=== PATIENT | male | born 1970 | race Caucasian/White ===

== ENCOUNTER 2020-02-08 06:42 | Outpatient (REF) | payer OTHER, SELFPAY ==
[2020-02-08 11:24] LABS: MANUAL DIFF FLAG NO
[2020-02-08 11:31] LABS: Basophils Percent Auto 0.3 % (0-2); Eosinophils Absolute Auto 0.2 X10*3/uL (0.0-0.4); Eosinophils Percent Auto 2.5 % (0-4); Hematocrit 43.1 % (42-52); Hemoglobin 14.2 g/dl (14.0-18.0); Imm Gran Abs Auto 0.02 X10*3/uL (0.00-0.03); Imm Gran Pct Auto 0.3 % (0.0-0.4); Lymphocytes Absolute Auto 1.7 X10*3/uL (1.2-4.9); Lymphocytes Percent Auto 27.3 % (20-40); Mean Corpuscular HGB Conc 32.9 g/dl (31.0-36.0); Mean Corpuscular Hemoglobin 32.1 pg (27.0-33.0); Mean Corpuscular Volume 97.5 fL (80-98); Mean Platelet Volume 12.8 fL (9.4-12.4); Monocytes Absolute Auto 0.8 X10*3/uL (0.1-1.2); Monocytes Percent Auto 12.2 % (2-11); Neutrophils Absolute Auto 3.7 X10*3/uL (2.0-8.3); Neutrophils Percent Auto 57.4 % (45-73); Platelet Count 205 X10*3/uL (160-400); Red Blood Count 4.42 X10*6/uL (4.60-5.80); Red Cell Distribution Width 12.6 % (11.0-16.0); White Blood Count 6.4 X10*3/uL (4.8-10.8)
[2020-02-08 12:07] LABS: Alanine Aminotransferase 21 U/L (0-40); Albumin Level 4.4 g/dL (3.5-5.0); Alkaline Phosphatase 81 U/L (39-117); Anion Gap 14 (12-20); Aspartate Amino Transferase 22 U/L (5-37); Bilirubin Total 0.8 mg/dL (0.0-1.0); Blood Urea Nitrogen 19 mg/dL (9-16); Calcium 9.1 mg/dL (8.4-10.2); Carbon Dioxide 27 mmol/L (22-29); Chloride 104 mmol/L (96-108); Cholesterol 163 mg/dL; Estimated Glomerular Filt Rate > 60; Glucose Fasting 93 mg/dL (60-99); HDL Cholesterol 46 mg/dL; LDL Cholesterol Calculated 90 mg/dl; Potassium 4.8 mmol/l (3.3-5.1); Sodium 140 mmol/L (135-145); Total Protein 7.1 g/dL (6.5-8.0); Triglycerides 136 mg/dL
[2020-02-08 12:31] LABS: Prostate Specific Antigen 0.13 ng/mL (<0.05-4.0)
== END 2020-02-08 06:43 | disposition home or self-care (01) ==
LOC: HO.HMGCLDS 06:42
PROVIDERS: PCP Internal Medicine; Visit Provider Internal Medicine
DX: Z20.828 Contact with and (suspected) exposure to other viral communicable diseases (principal); E78.00 Pure hypercholesterolemia, unspecified; E66.01 Morbid (severe) obesity due to excess calories
CPT/HCPCS: 36415; 80053; 80061; 84153; 85025; C9803; U0003

== ENCOUNTER 2020-06-16 11:48 | Emergency (ER) | payer OTHER, SELFPAY ==
--- NOTE | ~2020-06-16 | CT_ITS ---
EXAMINATION: CT GI BLEED/ABDOMEN AND PELVIS WITHOUT AND WITH CONTRAST. CLINICAL INFORMATION: Abdominal pain with bloody stools. COMPARISON: None TECHNIQUE: 5 mm thin axial and reformatted 2 mm thin sagittal and coronal images of abdomen and pelvis were obtained with and without intravenous defined metal Omnipaque 350. DLP 1663. FINDINGS: The lung bases are clear. The heart size is normal. The liver is normal size, shape and density. No focal lesion or intrahepatic ductal dilatation seen. There are no radiopaque gallstones or wall thickening. Visualized spleen, pancreas and bilateral adrenal glands are unremarkable. There is a 3 mm nonobstructive radiopaque calculi lower pole calyx left kidney. There are symmetrical bilateral enhancing nephrograms without any cyst or enhancing lesion. There is no hydronephrosis. The abdominal aorta is of normal caliber. No retroperitoneal lymph nodes or mass seen. There is diffuse colonic diverticulosis with diffuse mural thickening in the transverse segment of sigmoid colon with moderate pericolic fat stranding consistent with acute diverticulitis. There is hyperdense material seen within the sigmoid colon and diverticuli likely residual oral contrast. The small bowel loops are normal caliber. There is no extravasation of IV contrast to suspect a site of bleed. There is no free air free fluid. Abdominal wall appears unremarkable. Imaging through the pelvis reveals punctate calcification in normal size prostate gland. No abnormal inguinal or pelvic lymph nodes. There is no free fluid. CT/CT gi bleed abd pel wo/w con IMPRESSION: Diffuse colonic diverticulosis with acute sigmoid diverticulitis. No perforation or obstruction seen. There is no IV contrast extravasation seen in the colon suspected in the site of bleed. There is residual oral contrast within the diverticuli and sigmoid colon. Nonobstructive small 3 mm radiopaque calculi lower pole left kidney
[2020-06-16 12:22] VITALS: BP 153/78; PULSE 79; RESP 16; TEMP 36.7; O2SAT 98; BMI 36.7
--- NOTE | 2020-06-16 13:31 | ED.ABDPAIN ---
HPI - Abdominal Pain General Chief Complaint: Abdominal Pain Stated Complaint: ABD PAIN Time Seen by Provider: 06/16/20 13:19 Source: patient Mode of arrival: ambulatory Limitations: no limitations History of Present Illness HPI narrative: 49 y/o male with history of asthma and hyperlipidemia presenting to the ED from home with severe lower abdominal pain and cramping that started yesterday when he was at work. He states is comes and goes but has intensifying. He also reports some nausea and an intermittnet sharp pain under his rib cage on the right. He is afraid to eat or drink because of the pain. This morning he had 3 episodes of right red blood specked in his stool after he strained to have a bowel movement. No melena, no vomiting but admits to chills. No dizziness, lightheadedness, SOB or chest pain. He reports he started a diet in March of mostly vegetables and protein and he has lost about 35 pounds. MD elicited complaint: abdominal pain Pertinent past history: none Onset (ago): day(s) (1) Pain Consistency: intermittent Location: periumbilical, RUQ and RLQ Severity: severe Quality: cramping Radiation: none Migration to: no migration Exacerbating factors: nothing Relieving factors: rest Associated symptoms: nausea, chills and hematochezia Related Data Previous Rx's Medication Instructions Recorded hydrocodone-acetaminophen 1 tab PO Q4-6H PRN #10 tab 06/16/20 levofloxacin 500 mg PO Q24H 10 Days #10 tab 06/16/20 metronidazole [Flagyl] 500 mg PO BID #20 tab 06/16/20 ondansetron HCl [Zofran] 4 mg PO Q8H PRN #10 tab 06/16/20 Allergies Allergy/AdvReac Type Severity Reaction Status Date / Time No Known Allergies Allergy Verified 06/16/20 13:29 Review of Systems Review of Systems Constitutional: No Fever, + Chills ENT/Mouth: No sore throat, No Rhinorrhea, No Swallowing Difficulty Eyes: No Eye Pain, No Swelling, No Redness Cardiovascular: No Chest Pain, No SOB, No Orthopnea, No Edema Respiratory: No Cough, No Sputum, No Wheezing, No dyspnea Gastrointestinal: + Nausea, No Vomiting, No Diarrhea, + abdominal Pain, + Hematochezia, No Melena Genitourinary: No Dysuria, No Urinary Frequency, No Hematuria Musculoskeletal: No joint pain, No Myalgias Skin: No Skin Lesions, No rash Neuro: No Weakness, No Numbness, No Dizziness, No Headache Psych: No Anxiety/Panic, No Depression Heme/Lymph: No Bruising, No Lymphadenopathy Endocrine: No Polyuria, No Polydipsia Physical Exam Vital Signs: Vital Signs: Last Vital Signs Temp 98.0 F 06/16/20 12:22 Pulse 73 06/16/20 14:10 Resp 18 06/16/20 14:10 BP 123/61 06/16/20 14:10 Pulse Ox 96 06/16/20 14:10 Body Mass Index 36.7 Appearance: Alert. Oriented X3. No acute distress. Eyes: Pupils equal, round and reactive to light. ENT: Pharynx normal. Neck: Normal inspection. Neck supple. CVS: Normal heart rate and rhythm. Pulses normal. Respiratory: No respiratory distress. Breath sounds normal. Abdomen: Soft with periumbilical tenderness, RLQ tenderness with rebound. +BS in all 4 quadrants. Skin: Skin warm and dry. Normal skin color. Normal skin turgor. No rashes. Extremities: No lower extremity edema. Neuro: Oriented X 3. No motor deficit. No sensory deficit. Course Course Course Narrative: 49 y/o male presenting with lower abdominal pain, RUQ pain and bloody stools. Concern for possible diverticulitis, volvulus, appendicitis, cholecystitis. Will get labs and CT scan for further assessment. IVF and morphine ordered for now. Reevaluation(s) Reevaluation #1: Labs are unremarkable aside from WBC 12.2. Pain significantly improved after morphine. No N/V/D. Reevaluation #2: CT scan showing acute diverticulitis of sigmoid colon, no active GI bleed. H/H is at his baseline. No BM's here. Will treat with Flagyl and Levaquin. Patient counseled on diagnosis and management as well as signs/symptoms to prompt immediate return for re-evaluation. Stable for discharge. MDM - Abdominal Pain Lab Data Result diagrams: 06/16/20 13:32 06/16/20 13:32 Labs: Lab Results 06/16/20 06/16/20 06/16/20 Range/Units 13:32 13:32 13:32 WBC 12.2 H (4.8-10.8) X10*3/uL RBC 4.62 (4.60-5.80) X10*6/uL Hgb 14.7 (14.0-18.0) g/dl Hct 43.9 (42-52) % MCV 95.0 (80-98) fL MCH 31.8 (27.0-33.0) pg MCHC 33.5 (31.0-36.0) g/dl RDW 12.1 (11.0-16.0) % Plt Count 199 (160-400) X10*3/uL MPV 11.6 (9.4-12.4) fL Immature Gran % (Auto) 0.4 (0.0-0.4) % Neut % (Auto) 80.9 H (45-73) % Lymph % (Auto) 7.1 L (20-40) % [place] % (Auto) 10.0 (2-11) % Eos % (Auto) 1.4 (0-4) % Baso % (Auto) 0.2 (0-2) % Lymph # (Auto) 0.9 L (1.2-4.9) X10*3/uL [place] # (Auto) 1.2 (0.1-1.2) X10*3/uL Eos # (Auto) 0.2 (0.0-0.4) X10*3/uL Baso # (Auto) 0.0 (0.0-0.2) X10*3/uL Abs Immat Gran (auto) 0.05 H (0.00-0.03) X10*3/uL Absolute Neuts (auto) 9.9 H (2.0-8.3) X10*3/uL Absolute Nucleated RBC 0.000 (0.0-0.012) X10*3/uL Nucleated RBC % (auto) 0.0 (0.0-0.2) /100WBC Hold Blue Top SEE NOTE Sodium 135 (135-145) mmol/L Potassium 4.1 (3.3-5.1) mmol/L Chloride 101 (96-108) mmol/L Carbon Dioxide 26 (22-29) mmol/L Anion Gap 12 (12-20) BUN 14 (9-16) mg/dL Creatinine 0.91 (0.5-1.4) mg/dL Estim Creat Clear Calc 121.6 Estimated GFR > 60 Random Glucose 92 (60-115) mg/dL Calcium 9.1 (8.4-10.2) mg/dL Magnesium 2.0 (1.6-2.6) mg/dL Total Bilirubin 1.2 H (0.0-1.0) mg/dL Direct Bilirubin 0.5 (0.0-0.5) mg/dL AST 16 (5-37) U/L ALT 10 (0-40) U/L Alkaline Phosphatase 72 (39-117) U/L Total Protein 7.2 (6.5-8.0) g/dL Albumin 4.4 (3.5-5.0) g/dL Lipase (8-78) U/L Urine Color Urine Appearance Urine pH (5.0-8.0) Ur Specific [place] (1.005-1.025) Urine Protein (NEG-TRACE) MG/DL Urine Glucose (UA) (NEG) MG/DL Urine Ketones (NEG) MG/DL Urine Blood (NEG) Urine Nitrite (NEG) Ur Leukocyte Esterase (NEG) Urine RBC (0) /HPF Urine WBC (0-4) /HPF Ur Squamous Epith Cells /LPF Urine Bacteria /LPF 06/16/20 06/16/20 Range/Units 13:32 15:21 WBC (4.8-10.8) X10*3/uL RBC (4.60-5.80) X10*6/uL Hgb (14.0-18.0) g/dl Hct (42-52) % MCV (80-98) fL MCH (27.0-33.0) pg MCHC (31.0-36.0) g/dl RDW (11.0-16.0) % Plt Count (160-400) X10*3/uL MPV (9.4-12.4) fL Immature Gran % (Auto) (0.0-0.4) % Neut % (Auto) (45-73) % Lymph % (Auto) (20-40) % [place] % (Auto) (2-11) % Eos % (Auto) (0-4) % Baso % (Auto) (0-2) % Lymph # (Auto) (1.2-4.9) X10*3/uL [place] # (Auto) (0.1-1.2) X10*3/uL Eos # (Auto) (0.0-0.4) X10*3/uL Baso # (Auto) (0.0-0.2) X10*3/uL Abs Immat Gran (auto) (0.00-0.03) X10*3/uL Absolute Neuts (auto) (2.0-8.3) X10*3/uL Absolute Nucleated RBC (0.0-0.012) X10*3/uL Nucleated RBC % (auto) (0.0-0.2) /100WBC Hold Blue Top Sodium (135-145) mmol/L Potassium (3.3-5.1) mmol/L Chloride (96-108) mmol/L Carbon Dioxide (22-29) mmol/L Anion Gap (12-20) BUN (9-16) mg/dL Creatinine (0.5-1.4) mg/dL Estim Creat Clear Calc Estimated GFR Random Glucose (60-115) mg/dL Calcium (8.4-10.2) mg/dL Magnesium (1.6-2.6) mg/dL Total Bilirubin (0.0-1.0) mg/dL Direct Bilirubin (0.0-0.5) mg/dL AST (5-37) U/L ALT (0-40) U/L Alkaline Phosphatase (39-117) U/L Total Protein (6.5-8.0) g/dL Albumin (3.5-5.0) g/dL Lipase 12 (8-78) U/L Urine Color YELLOW Urine Appearance CLEAR Urine pH 5.5 (5.0-8.0) Ur Specific [place] 1.010 (1.005-1.025) Urine Protein NEG (NEG-TRACE) MG/DL Urine Glucose (UA) NEG (NEG) MG/DL Urine Ketones 40 (NEG) MG/DL Urine Blood TRACE (NEG) Urine Nitrite NEG (NEG) Ur Leukocyte Esterase NEG (NEG) Urine RBC 0-2 (0) /HPF Urine WBC 0 (0-4) /HPF Ur Squamous Epith Cells TRACE /LPF Urine Bacteria NONE /LPF Critical Care Time Critical Care Time Critical Care Time: No Discharge Plan Discharge Clinical Impression: Diverticulitis Patient Disposition: Home, Self-Care Instructions: Diverticulitis (ED) Additional Instructions: Your CT scan showed acute diverticulitis of your sigmoid colon. Take the antibiotics as prescribed to help treat this. Start taking them tomorrow morning. Stick to a bland diet for the next 1 week. Recommend clear liquids for the next 24 hours. Avoid seeds. Take the prescribed pain medication as needed. Do not drive after taking this medication. Follow up with your doctor next week. Prescriptions: New ondansetron HCl [Zofran] 4 mg tablet 4 mg PO Q8H PRN (Reason: nausea and vomiting) Qty: 10 RF: 0 metronidazole [Flagyl] 500 mg tablet 500 mg PO BID Qty: 20 RF: 0 levofloxacin 500 mg tablet 500 mg PO Q24H 10 Days Qty: 10 RF: 0 hydrocodone-acetaminophen 5-325 mg tablet 1 tab PO Q4-6H PRN (Reason: pain) Qty: 10 RF: 0 PMFSH Past Medical History Attestation statement: The following information was validated with the patient. Medical History (Updated 06/16/20 @ 16:09 by LIZZ Hester) Asthma Hyperlipidemia Social History Social History Alcohol intake: never Smoking Status: Never smoker Use of substances other than those prescribed or required for medical reasons: No Advance Directives: Yes Advance Directives Information Provided: No Advance Directives on File: No
[2020-06-16 13:39] VITALS: RESP 17
[2020-06-16] MEDS: Morphine Sulfate 4 MG/ML CARTRIDGE IVPUSH (13:39)
[2020-06-16] MEDS: 0.9 % Sodium Chloride 1,000 ML 999 ML IVCONT (13:39)
--- NOTE | 2020-06-16 13:43 | PC.NURSE ---
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 Patient reporting abdominal pain. Denies N/V/D/C. Iv established and labs drawn. Hung NS 1L and medicated with morphine. Patient tolerated well. Updated on plan of care for CT scan.
[2020-06-16 13:48] LABS: MANUAL DIFF FLAG NO
[2020-06-16 13:50] LABS: Basophils Percent Auto 0.2 % (0-2); Eosinophils Absolute Auto 0.2 X10*3/uL (0.0-0.4); Eosinophils Percent Auto 1.4 % (0-4); Hematocrit 43.9 % (42-52); Hemoglobin 14.7 g/dl (14.0-18.0); Imm Gran Abs Auto 0.05 X10*3/uL (0.00-0.03); Imm Gran Pct Auto 0.4 % (0.0-0.4); Lymphocytes Absolute Auto 0.9 X10*3/uL (1.2-4.9); Lymphocytes Percent Auto 7.1 % (20-40); Mean Corpuscular HGB Conc 33.5 g/dl (31.0-36.0); Mean Corpuscular Hemoglobin 31.8 pg (27.0-33.0); Mean Platelet Volume 11.6 fL (9.4-12.4); Monocytes Absolute Auto 1.2 X10*3/uL (0.1-1.2); Neutrophils Absolute Auto 9.9 X10*3/uL (2.0-8.3); Neutrophils Percent Auto 80.9 % (45-73); Platelet Count 199 X10*3/uL (160-400); Red Blood Count 4.62 X10*6/uL (4.60-5.80); Red Cell Distribution Width 12.1 % (11.0-16.0); White Blood Count 12.2 X10*3/uL (4.8-10.8)
[2020-06-16 14:09] LABS: Alanine Aminotransferase 10 U/L (0-40); Albumin Level 4.4 g/dL (3.5-5.0); Alkaline Phosphatase 72 U/L (39-117); Anion Gap 12 (12-20); Aspartate Amino Transferase 16 U/L (5-37); Bilirubin Direct 0.5 mg/dL (0.0-0.5); Bilirubin Total 1.2 mg/dL (0.0-1.0); Blood Urea Nitrogen 14 mg/dL (9-16); Calcium 9.1 mg/dL (8.4-10.2); Carbon Dioxide 26 mmol/L (22-29); Chloride 101 mmol/L (96-108); Creatinine Clr Calc Pharmacy 121.6; Estimated Glomerular Filt Rate > 60; Glucose Random 92 mg/dL (60-115); Potassium 4.1 mmol/L (3.3-5.1); Sodium 135 mmol/L (135-145); Total Protein 7.2 g/dL (6.5-8.0)
[2020-06-16 14:10] VITALS: BP 123/61; PULSE 73; RESP 18; O2SAT 96
[2020-06-16 14:10] LABS: Lipase 12 U/L (8-78)
--- NOTE | 2020-06-16 14:12 | PC.NURSE ---
pt reports feeling better after the morphine pain at 3/10. pt states having lower abd pain that radiated to his right rib area, denies n/v but having couple of stools that was blood tinged, denies blood thinners and aspirin.
[2020-06-16 15:35] LABS: Glucose Urine UA NEG (NEG); Leukocyte Esterase Urine NEG (NEG); Nitrite Urine NEG (NEG); PH 5.5 (5.0-8.0); Urine Blood TRACE (NEG); Urine Ketones 40 MG/DL (NEG); Urine Protein NEG (NEG-TRACE)
[2020-06-16 15:41] LABS: Appearance Urine CLEAR; Color Urine YELLOW
[2020-06-16 16:04] LABS: RBC Urine 0-2 /HPF (0); Squamous Epithelial Cell Urine TRACE /LPF; WBC Urine 0 /HPF (0-4)
[2020-06-16] MEDS: Ketorolac Tromethamine 30 MG/ML VIAL IVPUSH (16:47)
[2020-06-16] MEDS: levoFLOXacin 500 MG TABLET PO (16:48)
[2020-06-16] MEDS: metroNIDAZOLE 500 MG TABLET PO (16:49)
[2020-06-16 16:51] VITALS: BP 152/82; PULSE 62; RESP 18; O2SAT 96
== END 2020-06-16 17:02 | disposition home or self-care (01) ==
PROVIDERS: Physician Assistant; Emergency Provider Emergency Medicine Emergency Medical Services; PCP Internal Medicine
DX: K57.32 Diverticulitis of large intestine without perforation or abscess without bleeding (principal); N20.0 Calculus of kidney; J45.909 Unspecified asthma, uncomplicated; E78.5 Hyperlipidemia, unspecified
CPT/HCPCS: 36415; 74178; 80048; 80076; 81001; 83690; 83735; 85025; 96361; 96374; 96375; 99284; J1885; J2270; Q9967

== ENCOUNTER 2021-01-04 12:36 | Outpatient (REF) | payer OTHER, SELFPAY ==
--- NOTE | 2021-01-11 09:29 | MHC.AU.AEV ---
Adult Audiological Evaluation Date of Visit: 01/04/21 Reason for Appointment: Patient suspects he may have mild hearing difficulty. 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 He currently wears in-ear monitors that help reduce noise while playing on stage; however, he did not have access to those years ago. He does not have excessive noise exposure in his primary occupation. Ear History: Ear Deformity: None Reported Recent Ear Drainage: None Reported Recent Ear Pain: None Reported Family History of Hearing Loss?: No Recent Ear Infections: None Reported Ear Infections in Childhood: None Reported History of Ear Wax Buildup: None Reported Previous Ear Surgery: None Reported Bothersome Tinnitus/Ringing/Noises in Ears: None Reported Ear used on the phone: Left Ear Blocked/Full Sensation in Ear(s): None Reported History of occupational noise exposure?: No History: No Medical History: Medical History: Asthma, Rotator Cuff Surgery Otoscopy: Right Ear: Unremarkable Left Ear: Unremarkable Tympanometry: Tympanometry performed due to: To assess integrity of the middle ear system Right Ear: Normal Middle Ear System (Type A) Left Ear: Normal Middle Ear System (Type A) Hearing Evaluation: Transducer(s) Used: Insert Earphones Method: Conventional Audiometry Stimuli Used: Pure Tones Right Ear: Description of Hearing: Overall normal hearing Left Ear: Description of Hearing: Overall normal hearing Speech Recognition Threshold (SRT): Method Used: Recorded Lists Stimuli Used: Spondee Words Right Ear: 10 dBHL Left Ear: 10 dBHL Word Discrimination: Method: Recorded Lists Word Lists Used:: W-22 Right Ear: 100% at 50 dBHL Left Ear: 100% at 50 dBHL Most Comfortable Level (MCL): Right Ear: 50 dBHL Left Ear: 50 dBHL Interpretation of Results: Patient's hearing is overall within normal range. There is a slight notch to borderline-normal around 4000 Hz. Notches in this region are often seen in individuals with history of noise exposure. Continued use of hearing protection while in loud settings is important to preventing noise-induced hearing loss. Recommendations: Audiological re-evaluation if changes are noted. Diagnosis: Primary Diagnosis: H93.293 Abnormal Auditory Perception Signature: Provider: Liliana Davila, MARIBELL-A
== END 2021-01-04 12:37 | disposition home or self-care (01) ==
LOC: HO.SH 12:36
PROVIDERS: Visit Provider Internal Medicine
DX: H91.90 Unspecified hearing loss, unspecified ear (principal)
CPT/HCPCS: 92557; 92567

== ENCOUNTER 2021-06-07 07:03 | Outpatient (REF) | payer OTHER, SELFPAY ==
[2021-06-07 11:38] LABS: MANUAL DIFF FLAG NO
[2021-06-07 11:48] LABS: Basophils Percent Auto 0.6 % (0-2); Eosinophils Absolute Auto 0.1 X10*3/uL (0.0-0.4); Eosinophils Percent Auto 2.3 % (0-4); Hematocrit 42.5 % (42.0-52.0); Hemoglobin 14.1 g/dl (14.0-18.0); Imm Gran Abs Auto 0.02 X10*3/uL (0.00-0.03); Imm Gran Pct Auto 0.4 % (0.0-0.4); Lymphocytes Absolute Auto 1.4 X10*3/uL (1.2-4.9); Lymphocytes Percent Auto 29.1 % (20-40); Mean Corpuscular HGB Conc 33.2 g/dl (31.0-36.0); Mean Corpuscular Volume 96.6 fL (80.0-98.0); Mean Platelet Volume 12.3 fL (9.4-12.4); Monocytes Absolute Auto 0.7 X10*3/uL (0.1-1.2); Monocytes Percent Auto 13.4 % (2-11); Neutrophils Absolute Auto 2.6 x10*3/uL (2.0-8.3); Neutrophils Percent Auto 54.2 % (45-73); Platelet Count 203 X10*3/uL (160-400); Red Cell Distribution Width 12.1 % (11.0-16.0); White Blood Count 4.9 X10*3/uL (4.8-10.8)
[2021-06-07 12:15] LABS: Alanine Aminotransferase 18 U/L (0-40); Albumin Level 4.1 g/dL (3.5-5.0); Alkaline Phosphatase 76 U/L (39-117); Anion Gap 11 (12-20); Aspartate Amino Transferase 19 U/L (5-37); Bilirubin Total 0.8 mg/dL (0.0-1.0); Blood Urea Nitrogen 19 mg/dL (9-16); Calcium 9.2 mg/dL (8.4-10.2); Carbon Dioxide 23 mmol/L (22-29); Chloride 107 mmol/L (96-108); Cholesterol 196 mg/dL; Estimated Glomerular Filt Rate > 60; Glucose Fasting 102 mg/dL (60-99); HDL Cholesterol 40 mg/dL; LDL Cholesterol Calculated 132 mg/dl; Potassium 4.3 mmol/L (3.3-5.1); Sodium 137 mmol/L (135-145); Triglycerides 124 mg/dL
[2021-06-07 12:27] LABS: Thyroid Stimulating Hormone 2.34 uIU/mL (0.32-4.0); Vitamin D 25-OH Total 22.5 ng/mL (>30)
[2021-06-07 13:47] LABS: Appearance Urine CLEAR; Color Urine YELLOW; Glucose Urine UA NEG (NEG); Leukocyte Esterase Urine NEG (NEG); Nitrite Urine NEG (NEG); Urine Blood NEG (NEG); Urine Ketones NEG (NEG); Urine Protein NEG (NEG-TRACE)
== END 2021-06-07 07:04 | disposition home or self-care (01) ==
LOC: HO.HMGCLDS 07:03
PROVIDERS: Visit Provider Internal Medicine
DX: Z00.00 Encounter for general adult medical examination without abnormal findings (principal); Z12.5 Encounter for screening for malignant neoplasm of prostate; J45.30 Mild persistent asthma, uncomplicated; E66.01 Morbid (severe) obesity due to excess calories; E78.00 Pure hypercholesterolemia, unspecified
CPT/HCPCS: 36415; 80053; 80061; 81003; 82306; 84153; 84443; 85025

== ENCOUNTER 2022-08-08 06:47 | Outpatient (REF) | payer OTHER, SELFPAY ==
[2022-08-08 11:23] LABS: MANUAL DIFF FLAG NO
[2022-08-08 11:31] LABS: Appearance Urine Cloudy; Color Urine Yellow; Glucose Urine UA Negative (Negative); Leukocyte Esterase Urine Negative (Negative); Nitrite Urine Negative (Negative); PH 5.5 (5.0-9.0); Urine Blood Negative (Negative); Urine Ketones Negative (Negative); Urine Protein Negative (Neg-Trace)
[2022-08-08 11:38] LABS: Bacteria Urine None Seen (None Seen); Basophils Percent Auto 0.6 % (0-2); Eosinophils Absolute Auto 0.2 X10*3/uL (0.0-0.4); Hematocrit 42.2 % (42.0-52.0); Hemoglobin 14.1 g/dl (14.0-18.0); Hyaline Casts Urine 0-2 /LPF (0-2); Imm Gran Abs Auto 0.01 X10*3/uL (0.00-0.03); Imm Gran Pct Auto 0.2 % (0.0-0.4); Lymphocytes Absolute Auto 1.4 X10*3/uL (1.2-4.9); Lymphocytes Percent Auto 28.2 % (20-40); Mean Corpuscular HGB Conc 33.4 g/dl (31.0-36.0); Mean Corpuscular Hemoglobin 31.3 pg (27.0-33.0); Mean Corpuscular Volume 93.8 fL (80.0-98.0); Monocytes Absolute Auto 0.7 X10*3/uL (0.1-1.2); Monocytes Percent Auto 13.5 % (2-11); Neutrophils Absolute Auto 2.7 x10*3/uL (2.0-8.3); Neutrophils Percent Auto 54.5 % (45-73); Platelet Count 201 X10*3/uL (160-400); RBC Urine 0-2 /HPF (0-2); Red Cell Distribution Width 12.6 % (11.0-16.0); Squamous Epithelial Cell Urine 0-2 /HPF (0-2); WBC Urine 0-5 /HPF (0-5)
[2022-08-08 12:13] LABS: Alanine Aminotransferase 26 U/L (0-40); Albumin Level 4.1 g/dL (3.5-5.0); Alkaline Phosphatase 80 U/L (39-117); Anion Gap 10 (12-20); Aspartate Amino Transferase 25 U/L (5-37); Blood Urea Nitrogen 17 mg/dL (9-16); Carbon Dioxide 23 mmol/L (22-29); Chloride 111 mmol/L (96-108); Cholesterol 215 mg/dL; Estimated Glomerular Filt Rate > 60; Glucose Fasting 103 mg/dL (60-99); HDL Cholesterol 41 mg/dL; LDL Cholesterol Calculated 139 mg/dl; Potassium 4.3 mmol/L (3.3-5.1); Sodium 140 mmol/L (135-145); Total Protein 6.8 g/dL (6.5-8.0); Triglycerides 178 mg/dL
[2022-08-08 12:21] LABS: Estimated Average Glucose 108 mg/dL; Hemoglobin A1c % 5.4 %
[2022-08-08 12:37] LABS: Thyroid Stimulating Hormone 2.61 uIU/mL (0.32-4.0); Vitamin D 25-OH Total 30.9 ng/mL (>30)
[2022-08-09 10:33] LABS: Free Prostate Spec Ag 0.1 ng/mL; Percent Free Prostate Spec Ag 100 % (calc) (>25); Prostate Specific Ag Total 0.1 ng/mL (< OR = 4.0)
== END 2022-08-08 06:48 | disposition home or self-care (01) ==
LOC: HO.HMGCLDS 06:47
PROVIDERS: PCP Internal Medicine; Visit Provider Internal Medicine
DX: Z00.00 Encounter for general adult medical examination without abnormal findings (principal); Z12.5 Encounter for screening for malignant neoplasm of prostate; J45.30 Mild persistent asthma, uncomplicated; E66.01 Morbid (severe) obesity due to excess calories; E78.00 Pure hypercholesterolemia, unspecified; E55.9 Vitamin D deficiency, unspecified; R73.01 Impaired fasting glucose
CPT/HCPCS: 36415; 80053; 80061; 81001; 82306; 83036; 84154; 84443; 85025

== ENCOUNTER 2024-02-16 06:48 | Outpatient (REF) | payer OTHER, SELFPAY ==
[2024-02-16 09:59] LABS: MANUAL DIFF FLAG NO
[2024-02-16 10:20] LABS: Basophils Percent Auto 0.6 % (0-2); Eosinophils Absolute Auto 0.2 X10*3/uL (0.0-0.4); Eosinophils Percent Auto 3.6 % (0-4); Hematocrit 40.5 % (42.0-52.0); Hemoglobin 13.7 g/dl (14.0-18.0); Imm Gran Abs Auto 0.03 X10*3/uL (0.00-0.03); Imm Gran Pct Auto 0.6 % (0.0-0.4); Lymphocytes Absolute Auto 1.3 X10*3/uL (1.2-4.9); Lymphocytes Percent Auto 25.5 % (20-40); Mean Corpuscular HGB Conc 33.8 g/dl (31.0-36.0); Mean Corpuscular Hemoglobin 32.1 pg (27.0-33.0); Mean Corpuscular Volume 94.8 fL (80.0-98.0); Mean Platelet Volume 11.6 fL (9.4-12.4); Monocytes Absolute Auto 0.6 X10*3/uL (0.1-1.2); Monocytes Percent Auto 12.5 % (2-11); Neutrophils Absolute Auto 2.9 x10*3/uL (2.0-8.3); Neutrophils Percent Auto 57.2 % (45-73); Platelet Count 250 X10*3/uL (160-400); Red Blood Count 4.27 X10*6/uL (4.60-5.80); Red Cell Distribution Width 12.8 % (11.0-16.0); White Blood Count 5.1 X10*3/uL (4.8-10.8)
[2024-02-16 10:29] LABS: Estimated Average Glucose 114 mg/dL; Hemoglobin A1C 135.0748 umol/L; Hemoglobin A1c % 5.6 % (<6.0); Total Hemoglobin (HGBA1C) 3601.8981 umol/L
[2024-02-16 10:45] LABS: Alanine Aminotransferase 27 U/L (0-40); Albumin Level 4.1 g/dL (3.5-5.0); Alkaline Phosphatase 78 U/L (39-117); Anion Gap 11 (12-20); Aspartate Amino Transferase 28 U/L (5-37); Bilirubin Total 0.4 mg/dL (0.0-1.0); Blood Urea Nitrogen 18 mg/dL (9-16); Calcium 9.4 mg/dL (8.4-10.2); Carbon Dioxide 23 mmol/L (22-29); Chloride 109 mmol/L (96-108); Cholesterol 156 mg/dL (<200); Estimated Glomerular Filt Rate > 60; Glucose Fasting 102 mg/dL (60-99); HDL Cholesterol 42 mg/dL (>40); LDL Cholesterol Calculated 94 mg/dL (<100); PSA,Total (Free>4and<10) 0.66 ng/mL (0.00-4.00); Potassium 4.4 mmol/L (3.3-5.1); Sodium 139 mmol/L (135-145); Thyroid Stimulating Hormone 1.02 uIU/mL (0.32-4.0); Total Protein 6.9 g/dL (6.5-8.0); Triglycerides 100 mg/dL (<150); Vitamin D 25-OH Total 38.7 ng/mL (>30)
== END 2024-02-16 06:49 | disposition home or self-care (01) ==
LOC: HO.HMGCLDS 06:48
PROVIDERS: PCP Internal Medicine; Visit Provider Internal Medicine
DX: Z00.00 Encounter for general adult medical examination without abnormal findings (principal); E78.00 Pure hypercholesterolemia, unspecified; J45.30 Mild persistent asthma, uncomplicated; E66.01 Morbid (severe) obesity due to excess calories; Z12.5 Encounter for screening for malignant neoplasm of prostate; Z13.1 Encounter for screening for diabetes mellitus
CPT/HCPCS: 36415; 80053; 80061; 82306; 83036; 84153; 84443; 85025

== ENCOUNTER 2024-04-19 11:23 | Outpatient (REF) | payer OTHER, SELFPAY ==
--- NOTE | ~2024-04-19 | XR_ITS ---
EXAMINATION: XR CHEST 2 VIEWS HISTORY: R05.9 - Cough, unspecified COMPARISON: Comparison is made with the prior examination dated 09/08/2019. FINDINGS: PA and lateral views of the chest are submitted. There are low lung volumes. There are patchy opacities in both midlung zones on the left greater than right, which could represent pneumonia. Evaluation is limited by low lung volumes. There is no pleural effusion, pneumothorax, or pulmonary vascular congestion. The heart is normal in size. The bones are intact. XR/XR chest 2V IMPRESSION: Low lung volumes. Patchy opacities in both midlung zones which could represent pneumonia. Follow-up is recommended. Electronically signed by: Jl Mercado MD 04/19/2024 11:59 AM [facility]
[2024-04-19 12:51] LABS: Influenza A PCR NEGATIVE (Negative); Influenza B PCR NEGATIVE (Negative); Resp Syncy Virus RNA Qual PCR NEGATIVE (Negative); SARS COV2 PCR INHOUSE NEGATIVE (Negative)
== END 2024-04-19 11:24 | disposition home or self-care (01) ==
LOC: HO.LAB 11:23
PROVIDERS: PCP Internal Medicine; Visit Provider Physician Assistant Medical
DX: R05.1 Acute cough (principal); R09.89 Other specified symptoms and signs involving the circulatory and respiratory systems
CPT/HCPCS: 0241U; 71046

== ENCOUNTER → 2024-04-19 11:31 | Outpatient (BNV) | payer OTHER, SELFPAY | PROVIDERS: PCP Internal Medicine; Visit Provider Radiology Diagnostic Radiology | DX: R91.8 Other nonspecific abnormal finding of lung field (principal) | CPT/HCPCS: 71046 ==

== ENCOUNTER 2024-04-24 09:32 | Inpatient (IN) | payer OTHER, SELFPAY ==
[2024-04-24] VITALS (9 sets, daily range): BP systolic 136–160; BP diastolic 83–88; PULSE 77–126; RESP 12–23; TEMP 36.6–37; O2SAT 89–96; BMI 44.6
--- NOTE | ~2024-04-24 | CT_ITS ---
CLINICAL HISTORY: persistent cough, fevers CT chest without contrast Comparison: CR/SR - XR CHEST 2V - 04/19/24 11:51 EST CR/SR - RIBS RIGHT PA CHEST [id number] - 09/08/19 08:52 EDT Findings: No consolidation, edema, pleural effusion or pneumothorax. Couple 3 mm perifissural nodule along the minor and right interlobar fissure not requiring routine follow-up if patient felt to be of low risk. Otherwise optional CT follow-up in 12 months per Fleischner society guidelines. No dominant nodule. Minimal patchy air trapping which may relate to mild obstructive or small airway disease changes. Airways otherwise unremarkable. Thoracic inlet intact. Posterior exophytic smoothly marginated right thyroid nodule at approximately 14 x 24 mm for which follow-up nonemergent thyroid ultrasound suggested. Heart size normal. No pericardial effusion. No coronary artery calcification. Normal caliber thoracic aorta . Pulmonary trunk upper normal at 2.9 cm. No enlarged mediastinal or hilar lymph nodes. Esophagus within normal limits. Minimal hiatal hernia. No acute process evident upper abdomen. Bones intact. Soft tissues unremarkable. IMPRESSION: No acute cardiopulmonary process. Minimal air trapping suggesting possible mild small airway disease either obstructive or reactive. Posterior projecting 24 mm right thyroid nodule for which follow-up nonemergent thyroid ultrasound suggested. This document has been electronically signed by: Cuauhtemoc Perkins MD on 04/24/2024 11:08:00
[2024-04-24 09:54] LABS: Basophils Absolute Auto 0.1 X10*3/uL (0.0-0.2); Basophils Percent Auto 0.3 % (0-2); Eosinophils Absolute Auto 0.2 X10*3/uL (0.0-0.4); Eosinophils Percent Auto 0.6 % (0-4); Hematocrit 43.1 % (42.0-52.0); Hemoglobin 15.2 g/dl (14.0-18.0); Imm Gran Abs Auto 0.26 X10*3/uL (0.00-0.03); Imm Gran Pct Auto 1.1 % (0.0-0.4); Lymphocytes Absolute Auto 1.2 X10*3/uL (1.2-4.9); Lymphocytes Percent Auto 5.2 % (20-40); MANUAL DIFF FLAG SCAN; Mean Corpuscular HGB Conc 35.3 g/dl (31.0-36.0); Mean Corpuscular Hemoglobin 31.6 pg (27.0-33.0); Mean Corpuscular Volume 89.6 fL (80.0-98.0); Mean Platelet Volume 10.7 fL (9.4-12.4); Neutrophils Absolute Auto 21.2 x10*3/uL (2.0-8.3); Neutrophils Percent Auto 88.8 % (45-73); Platelet Count 258 X10*3/uL (160-400); Red Blood Count 4.81 X10*6/uL (4.60-5.80); Red Cell Distribution Width 12.8 % (11.0-16.0); SCAN SMEAR FLAG 1; White Blood Count 23.9 X10*3/uL (4.8-10.8)
--- NOTE | 2024-04-24 09:55 | ECG_ITS ---
Test Reason : sepsis Blood Pressure : */* mmHG Vent. Rate : 104 BPM Atrial Rate : 104 BPM P-R Int : 140 ms QRS Dur : 96 ms QT Int : 324 ms P-R-T Axes : 41 48 35 degrees QTcB Int : 426 ms Sinus tachycardia Otherwise normal ECG No previous ECGs available Referred By: Ileana Aguilar Electronically Signed By: FRANNY PARK MD
--- NOTE | 2024-04-24 10:12 | ED.SOB ---
HPI - SOB/Dyspnea General Chief Complaint: Dyspnea Stated Complaint: fever, sob Time Seen by Provider: 04/24/24 09:55 Source: patient and family Mode of arrival: ambulatory Limitations: no limitations History of Present Illness ED Provider: ITZEL ALVARENGA Narrative: 53 yo male with PMH of asthma who has inhalers he has been sick since Thanksgiving on and off with either viral syndrome or stomach bug. He has not recovered. His recovered well. No recent travel or procedures, no hotel stays. He reports wosening cough, chills and fever. He saw PCP 04/09 started on zpak for multifocal pneumonia. He is not getting better now so on 04/19 they started augmentin and prednisone burst. Now as of friday worsening breathing, chest tightness, fever of 101 this AM. He overall feels sick. He was up urinating all night as well. MD elicited complaint: shortness of breath and cough Pertinent past history: asthma Onset (ago): week(s) (6+) Context: recent illness Timing: progressively worsening Severity: moderate Exacerbating factors: coughing Relieving factors: bronchodilators Known history of: asthma Associated symptoms: chest pain, fever, cough, wheezing and lightheadedness Treatment prior to arrival: bronchodilator Related Data Previous Rx's ?Medication ?Instructions ?Recorded hydrocodone 5 mg-acetaminophen 325 1 tab PO Q4-6H PRN pain #10 tabs 06/16/20 mg tablet levofloxacin 500 mg tablet 500 mg PO Q24H 10 days #10 tabs 06/16/20 metronidazole 500 mg tablet 500 mg PO BID #20 tabs 06/16/20 (Flagyl) ondansetron HCl 4 mg tablet 4 mg PO Q8H PRN nausea and 06/16/20 (Zofran) vomiting #10 tabs azithromycin 250 mg tablet See Rx Instructions PO .COMPLEX #6 04/09/24 tabs albuterol sulfate 90 mcg/actuation 1 inh inhalation QID PRN shortness 04/19/24 aerosol inhaler of breath or wheezing #6.7 grams amoxicillin 875 mg-potassium 1 tab PO BID cough 10 days #20 tabs 04/19/24 clavulanate 125 mg tablet dextromethorphan 5 mg-guaifenesin 20 ml PO Q6H cough #118 mL 04/19/24 50 mg/5 mL oral liquid (Robitussin Cough-Chest Congestion DM) prednisone 20 mg tablet 60 mg (3 x 20 mg) PO DAILY #9 tabs 04/19/24 Allergies Allergy/AdvReac Type Severity Reaction Status Date / Time No Known Allergies Allergy Verified 04/24/24 09:39 Review of Systems Review of Systems: Constitutional : pos Fever, pos Chills ENT/Mouth : No Hoarseness, pos sore throat, pos Rhinorrhea Eyes: No Redness, No Discharge, No Vision Changes Cardiovascular : No Chest Pain, positive SOB, positive Dyspnea on Exertion, No Edema Respiratory : positive Cough, pos Sputum, positive Wheezing, Gastrointestinal : No Nausea, No Vomiting, No Diarrhea, No abdominal Pain Genitourinary : No Dysuria, No Hematuria Musculoskeletal : No joint pain, No Myalgias Skin : No rash Neuro : No Weakness, No Numbness, No Headache Psych : No anxiety, depression All other systems reviewed and are negative [facility] Past Medical History Attestation statement: The following information was validated with the patient. Source: old records reviewed Medical History Hyperlipidemia Asthma Social History Social History (Updated 04/24/24 @ 10:20 by Ileana Aguilar DO) Alcohol intake: never Patient Tobacco Use Status: Never used Tobacco Smoked in Last 30 Days: No Use of substances other than those prescribed or required for medical reasons: No Advance Directives: No Advance Directives Information Provided: No Do you have a plan to hurt others: No Plan Physical Exam Vital Signs: Vital Signs: Last Vital Signs Temp 97.8 F 04/24/24 09:34 Pulse 94 04/24/24 11:52 Resp 23 H 04/24/24 11:52 BP 160/87 H 04/24/24 11:52 Pulse Ox 94 04/24/24 11:52 O2 Del Method Room Air 04/24/24 11:52 BMI result Body Mass Index 44.6 Appearance: Alert. Oriented X3. No acute distress. Eyes: Pupils equal, round and reactive to light. ENT: Pharynx normal. Neck: Normal inspection. Neck supple. CVS: Normal heart rate and rhythm. Pulses normal. Respiratory: No respiratory distress. Breath sounds diminished throughout but no wheezes Abdomen: Soft and non-tender. Skin: Skin warm and dry. Normal skin color. Normal skin turgor. Extremities: No lower extremity edema. Neuro: Oriented X 3. No motor deficit. No sensory deficit. CN2-12 intact Medications Administered Discontinued Medications Generic Name Dose Route Start Last Admin Trade Name Bhupinder PRN Reason Stop Dose Admin Albuterol/Ipratropium 3 ml 04/24/24 10:09 04/24/24 10:23 Albuterol/Iprat 2.5/0.5mg 3 Ml Ampul.Neb INHALE 04/24/24 10:10 3 ml ONCE ONE Administration Cefepime HCl 2 gm in 50 mls @ 100 mls/hr 04/24/24 09:58 04/24/24 10:55 Maxipime IV 04/24/24 10:27 Infused ONCE ONE Infusion Lactated Ringer's 1,000 mls @ 999 mls/hr 04/24/24 09:59 04/24/24 11:21 Lr IV 04/24/24 10:59 Infused .Q1H1M ONE Infusion Methylprednisolone Sodium Succinate 60 mg 04/24/24 09:55 04/24/24 10:26 Methylprednisolone Sod Succ 125 Mg/2 Ml Vial IVPUSH 04/24/24 09:56 60 mg ONCE ONE Administration Medical Decision Making Medical Decision Making MDM Narrative: 53 yo male with PMH of asthma here with c/o being ill on and off for 6 weeks not responding to zpak then steroids and augmentin. He spiked another fever today at this time given history will obtain labs, cultures, start on cefepime, CT scan of chest for persistent infection. IV steroids, bronchodilators. Possible pneumonia, dehydration, asthma, viral syndrome. Differential Diagnosis Differential Diagnoses: The differential diagnosis associated with the presentation includes asthma, pneumonia, hyperglycemia, dehydration, UTI Admission/Observation Consideration of admission/observation: Escalation of care including admission/observation considered 88% on RA at this time will need admission for further management and work up including O2 application Consult Healthcare Provider Management of the patient was discussed with: Hospitalist (will admit) Lab Data [facility] Lab Attestation statement: I reviewed the patient's lab results. 04/24/24 09:47 04/24/24 09:47 Labs: Lab Results 04/24/24 04/24/24 04/24/24 Range/Units 09:47 10:21 10:24 WBC 23.9 H (4.8-10.8) X10*3/uL RBC 4.81 (4.60-5.80) X10*6/uL Hgb 15.2 (14.0-18.0) g/dl Hct 43.1 (42.0-52.0) % MCV 89.6 (80.0-98.0) fL MCH 31.6 (27.0-33.0) pg MCHC 35.3 (31.0-36.0) g/dl RDW 12.8 (11.0-16.0) % Plt Count 258 (160-400) X10*3/uL MPV 10.7 (9.4-12.4) fL Immature Gran % (Auto) 1.1 H (0.0-0.4) % Neut % (Auto) 88.8 H (45-73) % Lymph % (Auto) 5.2 L (20-40) % [place] % (Auto) 4.0 (2-11) % Eos % (Auto) 0.6 (0-4) % Baso % (Auto) 0.3 (0-2) % Lymph # (Auto) 1.2 (1.2-4.9) X10*3/uL [place] # (Auto) 1.0 (0.1-1.2) X10*3/uL Eos # (Auto) 0.2 (0.0-0.4) X10*3/uL Baso # (Auto) 0.1 (0.0-0.2) X10*3/uL Abs Immat Gran (auto) 0.26 H (0.00-0.03) X10*3/uL Absolute Neuts (auto) 21.2 H (2.0-8.3) x10*3/uL Absolute Nucleated RBC 0.000 (0.0-0.012) X10*3/uL Nucleated RBC % (auto) 0.0 (0.0-0.2) /100WBC Smear Tech's Comments VERIFIED Sodium 136 (135-145) mmol/L Potassium 4.1 (3.3-5.1) mmol/L Chloride 105 (96-108) mmol/L Carbon Dioxide 24 (22-29) mmol/L Anion Gap 11 L (12-20) BUN 13 (9-16) mg/dL Creatinine 0.80 (0.5-1.4) mg/dL Estim Creat Clear Calc 146.7 Estimated GFR > 60 Random Glucose 139 H (60-115) mg/dL Lactic Acid 1.7 (0.5-2.0) mmol/L Calcium 9.6 (8.4-10.2) mg/dL Total Bilirubin 0.8 (0.0-1.0) mg/dL Direct Bilirubin 0.2 (0.0-0.5) mg/dL AST 24 (5-37) U/L ALT 36 (0-40) U/L Alkaline Phosphatase 78 (39-117) U/L Troponin I High Sens 7.3 (<3.5-35.0) ng/L C-Reactive Protein 1.33 H (< or = 0.50) mg/dL B-Natriuretic Peptide 11 (<100) pg/mL Total Protein 7.6 (6.5-8.0) g/dL Albumin 4.1 (3.5-5.0) g/dL Lipase 11 (8-78) U/L Urine Color Urine Appearance Urine pH (5.0-9.0) Ur Specific [place] (1.005-1.025) Urine Protein (Neg-Trace) mg/dL Urine Glucose (UA) (Negative) mg/dL Urine Ketones (Negative) mg/dL Urine Blood (Negative) Urine Nitrite (Negative) Ur Leukocyte Esterase (Negative) Influenza Type A (PCR) NEGATIVE (Negative) Influenza Type B (PCR) NEGATIVE (Negative) RSV RNA Qual (PCR) NEGATIVE (Negative) SARS-CoV-2 RNA (RT-PCR) NEGATIVE (Negative) 04/24/24 Range/Units 11:15 WBC (4.8-10.8) X10*3/uL RBC (4.60-5.80) X10*6/uL Hgb (14.0-18.0) g/dl Hct (42.0-52.0) % MCV (80.0-98.0) fL MCH (27.0-33.0) pg MCHC (31.0-36.0) g/dl RDW (11.0-16.0) % Plt Count (160-400) X10*3/uL MPV (9.4-12.4) fL Immature Gran % (Auto) (0.0-0.4) % Neut % (Auto) (45-73) % Lymph % (Auto) (20-40) % [place] % (Auto) (2-11) % Eos % (Auto) (0-4) % Baso % (Auto) (0-2) % Lymph # (Auto) (1.2-4.9) X10*3/uL [place] # (Auto) (0.1-1.2) X10*3/uL Eos # (Auto) (0.0-0.4) X10*3/uL Baso # (Auto) (0.0-0.2) X10*3/uL Abs Immat Gran (auto) (0.00-0.03) X10*3/uL Absolute Neuts (auto) (2.0-8.3) x10*3/uL Absolute Nucleated RBC (0.0-0.012) X10*3/uL Nucleated RBC % (auto) (0.0-0.2) /100WBC Smear Tech's Comments Sodium (135-145) mmol/L Potassium (3.3-5.1) mmol/L Chloride (96-108) mmol/L Carbon Dioxide (22-29) mmol/L Anion Gap (12-20) BUN (9-16) mg/dL Creatinine (0.5-1.4) mg/dL Estim Creat Clear Calc Estimated GFR Random Glucose (60-115) mg/dL Lactic Acid (0.5-2.0) mmol/L Calcium (8.4-10.2) mg/dL Total Bilirubin (0.0-1.0) mg/dL Direct Bilirubin (0.0-0.5) mg/dL AST (5-37) U/L ALT (0-40) U/L Alkaline Phosphatase (39-117) U/L Troponin I High Sens (<3.5-35.0) ng/L C-Reactive Protein (< or = 0.50) mg/dL B-Natriuretic Peptide (<100) pg/mL Total Protein (6.5-8.0) g/dL Albumin (3.5-5.0) g/dL Lipase (8-78) U/L Urine Color Yellow Urine Appearance Clear Urine pH 7.5 (5.0-9.0) Ur Specific [place] <= 1.005 (1.005-1.025) Urine Protein Negative (Neg-Trace) mg/dL Urine Glucose (UA) Negative (Negative) mg/dL Urine Ketones Negative (Negative) mg/dL Urine Blood Negative (Negative) Urine Nitrite Negative (Negative) Ur Leukocyte Esterase Negative (Negative) Influenza Type A (PCR) (Negative) Influenza Type B (PCR) (Negative) RSV RNA Qual (PCR) (Negative) SARS-CoV-2 RNA (RT-PCR) (Negative) Independent Interpretation I performed an independent interpretation of an: EKG and CT Scan (no pneumonia) Interpretation: Rate: 104 Rhythm: sinus tach [place]: normal Normal P waves. Normal ROLY. Normal QRS complex. ST T wave : normal inverted t wave V1 qTC: 426 prior studies: no acute ischemia The study has been interpreted contemporaneously by me. . Radiology Impression Discussion of test interpretation with radiology: I have reviewed the radiologist's reading. Independent Historian Clinical information obtained from an independent historian. History obtained from or confirmed by: Spouse External Record Review External record reviewed: Outpatient record Discharge Plan Discharge Clinical Impression: Elevated WBC count, Hypoxia, Asthma exacerbation, Pneumonitis Patient Disposition: Admitted As Inpatient Prescriptions: No Action azithromycin 250 mg tablet See Rx Instructions PO .COMPLEX Qty: 6 0RF Rx Instructions: take 500 mg today (day 1), then 250 mg for 4 days (days 2-5) PO amoxicillin-pot clavulanate 875-125 mg tablet 1 tab PO BID 10 Days Qty: 20 0RF albuterol sulfate 90 mcg/actuation HFA aerosol inhaler 1 inh inhalation QID PRN (Reason: shortness of breath or wheezing) Qty: 6.7 0RF prednisone 20 mg tablet 60 mg PO DAILY Qty: 9 0RF Robitussin Cough-Chest Stevo DM 5-50 mg/5 mL liquid 20 ml PO Q6H Qty: 118 0RF ondansetron HCl [Zofran] 4 mg tablet 4 mg PO Q8H PRN (Reason: nausea and vomiting) Qty: 10 0RF metronidazole [Flagyl] 500 mg tablet 500 mg PO BID Qty: 20 0RF levofloxacin 500 mg tablet 500 mg PO Q24H 10 Days Qty: 10 0RF hydrocodone-acetaminophen 5-325 mg tablet 1 tab PO Q4-6H PRN (Reason: pain) Qty: 10 0RF Rx Instructions: for 3 days Print Language: Urdu
[2024-04-24 10:13] LABS: SLIDE REVIEW VERIFIED
[2024-04-24 10:18] LABS: Albumin Level 4.1 g/dL (3.5-5.0); Alkaline Phosphatase 78 U/L (39-117); Anion Gap 11 (12-20); Aspartate Amino Transferase 24 U/L (5-37); Bilirubin Direct 0.2 mg/dL (0.0-0.5); Bilirubin Total 0.8 mg/dL (0.0-1.0); Blood Urea Nitrogen 13 mg/dL (9-16); Calcium 9.6 mg/dL (8.4-10.2); Carbon Dioxide 24 mmol/L (22-29); Chloride 105 mmol/L (96-108); Creatinine Clr Calc Pharmacy 146.7; Estimated Glomerular Filt Rate > 60; Glucose Random 139 mg/dL (60-115); Lipase 11 U/L (8-78); Potassium 4.1 mmol/L (3.3-5.1); Sodium 136 mmol/L (135-145); Total Protein 7.6 g/dL (6.5-8.0)
[2024-04-24] MEDS: Albuterol/Iprat 2.5/0.5MG 3 ML AMPUL.NEB INHALE (10:23)
[2024-04-24] MEDS: methylPREDNISolone Sod Succ 125 MG/2 ML VIAL 60 MG IVPUSH (10:26)
[2024-04-24] MEDS: cefEPime HCl/D5W 2 GM/50 ML PIGGYBACK IV (10:27)
[2024-04-24] MEDS: Lactated Ringers 1,000 ML 999 ML IV (10:27)
[2024-04-24 10:34] LABS: Alanine Aminotransferase 36 U/L (0-40)
[2024-04-24 10:48] LABS: Lactic Acid 1.7 mmol/L (0.5-2.0)
[2024-04-24 10:50] LABS: Influenza A PCR NEGATIVE (Negative); Influenza B PCR NEGATIVE (Negative); Resp Syncy Virus RNA Qual PCR NEGATIVE (Negative); SARS COV2 PCR INHOUSE NEGATIVE (Negative)
[2024-04-24 10:53] LABS: Troponin-I High Sensitivity 7.3 ng/L (<3.5-35.0)
[2024-04-24 10:54] LABS: B Type Natriuretic Peptide 11 pg/mL (<100)
[2024-04-24 10:58] LABS: C Reactive Protein 1.33 mg/dL (< or = 0.50)
--- OUTSIDE RECORDS SUMMARY | 2024-04-24 11:02 | XMS_ITS | Patient Health Record ---
Author Organization Jl Vail DO, FAC Address [address] [place] [phone] Care Team Providers Care Nutrition Program Instructor Name Role Phone [facility] Primary Care Provider ALLERGIES Allergen (clinical drug ingredient) Drug/Non Drug Allergy documented on EMR Reaction Allergy Type Onset Date Status bupropion / naltrexone Contrave drowsiness Drug Allergy Active hydrochlorothiazide Hydrochlorothiazide shakes D rug Allergy Active RESULTS Component Value Reference Range Notes Complete Blood Count Auto Di ff Reviewed date:02/16/2024 10:32:14 AM Interpretation:Abnormal Performing Lab:[facility], [address] [place] [id number] Notes/Report: White Blood Count 5.1 4.8-10.8 X10*3/uL Red Blood Count 4.27 4.60-5.80 X10*6/uL Hemoglobin 13.7 14.0-18.0 g/dl Hematocrit 40.5 42.0-52.0 % Mean Corpuscular Volume 94.8 80.0-98.0 fL Mean Corpuscular Hemoglobin 32.1 27.0-33.0 pg Mean Corpuscular HGB Conc 33.8 31.0-36.0 g/dl Red Cell Distribution Width 12.8 11.0-16.0 % Platelet Count 250 160-400 X10*3/uL Mean Platelet Volume 11.6 9.4-12.4 fL Neutrophils Percent Auto 57.2 45-73 % Imm Gran Pct Auto 0.6 0.0-0.4 % Lymphocytes Percent Auto 25.5 20-40 % Monocytes Percent Auto 12.5 2-11 % Eosinophils Percent Auto 3.6 0-4 % Basophils Percent Auto 0.6 0-2 % NRBC Pct Auto 0.0 0.0-0.2 /100WBC Neutrophils Absolute Auto 2.9 2.0-8.3 x10*3/u L Imm Gran Abs Auto 0.03 0.00-0.03 X10*3/uL Lymphocytes Absolute Auto 1.3 1.2-4.9 X10*3/u L Monocytes Absolute Auto 0.6 0.1-1.2 X10*3/uL Eosinophils Absolute Auto 0.2 0.0-0.4 X10*3/u L Basophils Absolute Auto 0.0 0.0-0.2 X10*3/uL NRBC Abs Auto 0.000 0.0-0.012 X10*3/uL Comprehensive [place]. Panel Fa st Reviewed date:02/16/2024 11:28:37 AM Interpretation:Abnormal Performing Lab:[facility], [address] [place] [phone] Notes/Report: Sodium 139 135-145 mmol/L Potassium 4.4 3.3-5.1 mmol/L Chloride 109 96-108 mmol/L Carbon Dioxide 23 22-29 mmol/L Anion Gap 11 12-20 Blood Urea Nitrogen 18 9-16 mg/dL Creatinine 1.07 0.5-1.4 mg/dL Estimated Glomerular Filt Rate > 60 Chronic Kidney Disease: Estimated GFR < 60 mL/min/1.73m2 Severe Kidney Disease: Estimated GFR < 15 mL/min/1.73m2 Glucose Fasting 102 60-99 mg/dL A fasting glucose from 100-125 mg/dl is considered impaired (pre-diabetes). Calcium 9.4 8.4-10.2 mg/dL Bilirubin Total 0.4 0.0-1.0 mg/dL Aspartate Amino Transferase 28 5-37 U/L Alanine Aminotransferase 27 0-40 U/L Total Protein 6.9 6.5-8.0 g/dL Albumin Level 4.1 3.5-5.0 g/dL Alkaline Phosphatase 78 39-117 U/L Lipid Panel Reviewed date:02/16/2024 11:28:37 AM Interpretation:Normal Performing Lab:[facility], [address] [place] [phone] Notes/Report: Triglycerides 100 <150 mg/dL Desirable Triglyceride: less than 150 mg/dL Borderline High Triglyceride 150-199 mg/dL High Triglyceride: 200-499 mg/dL Very High Triglyceride: greater than or equal to 5OO mg/dL Cholesterol 156 <200 mg/dL Desirable Cholesterol: less than 200 mg/dL Borderline High Cholesterol: 200-239 mg/dL High Cholesterol: greater than 239 mg/dL LDL Cholesterol Calculated 94 <100 mg/dL Desirable LDL: less than 100 mg/dL Near Optimal/Above Optimal LDL: 110-129 mg/dL Borderline High LDL: 130-159 mg/dL High LDL: 160-189 mg/dL Very High LDL: greater than or equal to 190 mg/dL HDL Cholesterol 42 >40 mg/dL Desirable HDL: greater than 40 mg/dL Note: This HDL assay may give artificially low results in patients with liver disease. PSA,Total (Free>4and<10) Reviewed date:02/16/2024 11:28:37 AM Interpretation:Normal Performing Lab:[facility], [address] [place] [phone] Notes/Report: PSA,Total (Free>4and<10) 0.66 0.00-4.00 ng/mL A Free PSA was not performed: The percentage of Free PSA can be used to enhance the differentiation of prostate cancer from benign prostatic disease in subjects whose PSA levels are between 4.0 and 10.0 ng/mL. For subjects whose PSA levels are below 4.0 or above 10.0 ng/mL, the risk of prostate cancer is determined on the basis of the PSA alone. Therefore the % Free PSA is recommended only for those subjects whose PSA levels are between 4.0 and 10.0 ng/mL. PSA methodology: [employer] i Chemiluminescent Microparticle Immunoassay (CMIA) Vitamin D 25-OH Total Reviewed date:02/16/2024 11:28:37 AM Interpretation:Normal Performing Lab:[facility], [address] [place] [phone] Notes/Report: Vitamin D 25-OH Total 38.7 >30 ng/mL Health Based Reference Values* < 20 ng/mL Deficient 20-30 ng/mL Insufficient > 30 ng/mL Sufficient *Jessica VICTOR. N Engl J Med. 2007;357:266-280 Care must be taken in interpreting Vitamin D results from different laboratories and methodologies. Published data demonstrated that results from patients undergoing hemodialysis may show a negative bias when tested with various automated 25-OH vitamin D assays when compared to LC-MS/MS. When testing samples from patients whose predominant form of Vitamin D is Vitamin D2, such as patients receiving Vitamin D2 supplementation, results that are subtherapeutic should be confirmed with another method such as LC-MS/MS. Thyroid Stimulating Hormone Reviewed date:02/16/2024 11:28:37 AM Interpretation:Normal Performing Lab:[facility], [address] [place] [phone] Notes/Report: Thyroid Stimulating Hormone 1.02 0.32-4.0 uIU/ mL TSH 3rd Generation ([employer]) Hemoglobin A1c Reviewed date:02/16/2024 10:32:14 AM Interpretation:Normal Performing Lab:[facility], [address] [place] [phone] Notes/Report: Hemoglobin A1c % 5.6 <6.0 % Hemoglobin A1C Reference Range Adults: 4.8 - 6.0 % Non diabetic: < 6.0 % Goal: < 7.0 % Additional Action Suggested: > 8.0 % Note: Hemoglobin A1c results are invalid for patients with abnormal amounts of HbF. Blood transfusions may impact the HbA1c concentration in the patient sample. Estimated Average Glucose 114 eAG = Estimated average glucose which is %A1C expressed as average glucose, using the formula of the [id number] Average Glucose study (ADAG), Diabetes Care, Vol.31,#8, Oct. 2007 REASON FOR REFERRAL No Information MEDICATIONS Medication SIG (Take, Route, Frequency, Duration) Notes Start Date End Date Status Atorvastatin Calcium 10 MG 1 tablet Oral ly Once a day Active ProAir HFA 108 (90 Base) MCG/ACT 2 puffs as needed Inhalation every 6 hrs for 30 days Active Wixela Inhub 500-50 MCG/ACT 1 puff Inhal ation Twice a day Active IMMUNIZATIONS Vaccine Route Administration Date Status Comme nts Pneumococcal - PPSV23 Unknown 12/13/2009 Administered Td (adult) Unknown 12/13/2009 Administered Influenza IM Intramuscular 04/28/2013 Administered Influenza IM Intramuscular 05/24/2014 Administered Influenza Quad IM Intramuscular 06/06/2015 Administered Influenza Quad IM Intramuscular 12/02/2017 Administered Influenza Quad IM Intramuscular 01/20/2019 Administered Influenza Quad IM Intramuscular 02/08/2020 Administered Pneumococcal - PPSV23 IM Intramuscular 02/06/2021 Administ ered Influenza Quad IM Intramuscular 02/12/2021 Administered COVID-19 Pfizer BioNTech Unknown 03/08/2021 Administere d COVID-19 Pfizer BioNTech Unknown 06/30/2020 Administere d COVID-19 Pfizer BioNTech Unknown 07/23/2020 Administere d Influenza Quad Unknown 03/19/2022 Administered SOCIAL HISTORY Tobacco Use: Social History Observation Description Date Details (start date - stop date) Never Smoker NA - NA Sex Assigned At : Social History Observation Description Sex Assigned At Unknown Tobacco Use/Smoking Question Answer Notes Patient is a nonsmoker Additional Findings: Tobacco Non-User Cu rrent non-smoker, currently using no form of tobacco Alcohol Screen Question Answer Notes Did you have a drink contain ing alcohol in the past year? Yes How often did you have a dri nk containing alcohol in the past year? 2 to 4 times a month (2 points) How many drinks did you have on a typical day when you were drinking in the past year? 1 or 2 drinks (0 point) How often did you have 6 or more drinks on one occasion in the past year? Never (0 point) Points 2 Interpretation Negative PROBLEMS Problem Type ICD Code Onset Dates Problem Status W/U Status Risk SNOMED Code Notes Problem Vitamin D deficiency (E55.9) Active confirmed 38767176 Problem Morbid (severe) obesity due to excess calories (E66.01) Active confirmed 11667359326404 Problem Anxiety (F41.9) Active confirmed 134283 02 Problem Mild persistent asth ma without complication (J45.30) Active confirmed 622691506 Problem Eczema, unspecified type (L30.9) Active confirmed 72397986 Problem Hypercholesterolemia (E78.00) Active confirmed 11575387 Problem Diverticulitis (K57.92) Active confirmed 443558934 Problem Tear of left rotator cuff, unspecified tear extent (M75.102) Active confirmed 7420841 VITAL SIGNS Blood pressure diastolic 82 mm Hg 02/17/2024 Height 67 in 02/17/2024 Blood pressure systolic 140 mm Hg 02/17/2024 Weight 306 lbs 02/17/2024 BMI 47.92 kg/m2 02/17/2024 Encounters Encounter Location Date Provider Diagnosis Jl Vail DO, [facility] [address] [place], [place] [phone] 09/24/2023 Jl Vail DO, [facility] [address], [place] [id number] 10/15/2023 J[facility] Encounter for genera l adult medical examination without abnormal findings Z00.00 ; Hypercholesterolemia E78.00 ; Mild persistent asthma without complication J45.30 and Morbid (severe) obesity due to excess calories E66.01 Jl Vail DO, [facility] [address], [place] [phone] 02/17/2024 Jl V[facility] Hypercholesterolemia E78.00 and Mild persistent asthma without complication J45.30 ASSESSMENTS Encounter Date Diagnosis Assessment Notes Treatment Notes Treatment Clinical Notes 10/15/2023 Encounter for genera l adult medical examination without abnormal findings (ICD-10 - Z00.00) 10/15/2023 Hypercholesterolemia (ICD-10 - E78.00) 02/17/2024 Mild persistent asth ma without complication (ICD-10 - J45.30) 02/17/2024 Hypercholesterolemia (ICD-10 - E78.00) 10/15/2023 Mild persistent asth ma without complication (ICD-10 - J45.30) 10/15/2023 Morbid (severe) obes ity due to excess calories (ICD-10 - E66.01) Long discussion regarding strategies for sustained weight loss. Advise Weight Watchers. PLAN OF TREATMENT No Information Insurance Providers Payer Name Payer Address Payer Phone Subscriber Number Group Number Insured Name Patient Relationship to Insured Coverage Start Date Coverage End Date [facility] [address] [facility] [place] [phone] [id number] Omar Thorpe Self - patient is the insured MEDICAL (GENERAL) HISTORY Medical History History ICD Code hypercholesterolemia hypertension asthma - mild persistent obstructive airways disease obstructive sleep apnea obesity cystic acne anal fissure recurrent corneal ulcers Eczema, unspecified type L30.9 Anxiety F41.9 Tear of left rotator cuff, unspecified t ear extent M75.102 diverticulosis diverticulitis Surgical History Surgery Date(Month/Year) wisdom teeth extraction left elbow surgery secondary to osteocho ndritis left shoulder arthroscopy 12/2017
--- OUTSIDE RECORDS SUMMARY | 2024-04-24 11:02 | XMS_ITS ---
Author Organization Jl Vail DO, FACP Address [address], [place] [id number] Care Team Providers Care Instrumentation Tech Name Role Phone Jl Vail Primary Care Provider [phone] ALLERGIES Allergen (clinical drug ingredient) Drug/Non Drug Allergy documented on EMR Reaction Allergy Type Onset Date Status bupropion / naltrexone Contrave drowsiness Drug Allergy Active hydrochlorothiazide Hydrochlorothiazide shakes D rug Allergy Active REASON FOR VISIT 4 month f/u, Follow up hypercholesterolemia, asthma - mild persistent MEDICATIONS Medication SIG (Take, Route, Frequency, Duration) Notes Start Date End Date Status Atorvastatin Calcium 10 MG 1 tablet Oral ly Once a day Active ProAir HFA 108 (90 Base) MCG/ACT 2 puffs as needed Inhalation every 6 hrs for 30 days Active Wixela Inhub 500-50 MCG/ACT 1 puff Inhal ation Twice a day Active SOCIAL HISTORY Tobacco Use: Social History Observation [...] Never (0 point) Points 2 Interpretation Negative VITAL SIGNS BMI 47.92 kg/m2 02/17/2024 Blood pressure systolic 140 mm Hg 02/17/20 24 Blood pressure diastolic 82 mm Hg 024 Height 67 in 02/17/2024 Weight 306 lbs 02/17/2024 Encounters Encounter Location Date Provider Diagnosis Jl Vail DO, [address] [phone] 02/17/2024 Jl Vail Hypercholesterolemia E78.00 and Mild persistent asthma without complication J45.30 ASSESSMENTS Encounter Date Diagnosis Assessment Notes Treatment Notes Treatment Clinical Notes 02/17/2024 Hypercholesterolemia (ICD-10 - E78.00) 02/17/2024 Mild persistent asth ma without complication (ICD-10 - J45.30) PLAN OF TREATMENT Medication Medication Name Sig Start Date Stop Date Notes Atorvastatin Calcium 10 MG 1 tablet Orally Once a day ProAir HFA 108 (90 Base) MCG/ACT 2 puffs as needed Inhalation every 6 hrs for 30 days Wixela Inhub 500-50 MCG/ACT 1 puff Inhal ation Twice a day Next Appt Details Follow Up: 9 Months, Reason: H&P Progress Notes * Examination Category Sub-Category Detail Notes General Examination GENERAL APPEARANCE: in no ac [place] distress, well developed, well nourished HEAD: normocephalic, atrau matic HEART: no murmurs, regular rate and rhythm, S1, S2 normal LUNGS: clear to auscultatio n bilaterally ABDOMEN: normal, bowel sounds present, soft, nontender, nondistended SKIN: warm and dry EXTREMITIES: no edema PSYCH: alert, oriented, cog nitive function intact
--- OUTSIDE RECORDS SUMMARY | 2024-04-24 11:03 | XMS_ITS | Patient Health Record ---
Author Organization [facility] Address [address] [place] [address] Care Team Providers Care Pediatric Lpn Name Role Phone Yared (RETIRED) Jl RUSSELL Primary Care Provid er Unavailable Leandro Thakkar Jr Unavailable REASON FOR REFERRAL No Information MEDICATIONS Medication SIG (Take, Route, Frequency, Duration) Notes Start Date End Date Status Advair Diskus 250-50 MCG/DOSE 1 puff Inhalation Twice a day/ as needed Active levoFLOXacin 500 MG 1 tablet Orally Once a day for 10 day(s) 09/10/2021 Active Fiber - as directed Orally A ctive metroNIDAZOLE 500 MG 1 tablet Orally Thr ee times a day for 10 day(s) 09/10/2021 Active IMMUNIZATIONS Vaccine Route Administration Date Status Comme nts Influenza Unknown 11/29/2017 Administered Influenza Unknown 01/30/2020 Administered SOCIAL HISTORY Tobacco Use: Social History Observation Description Date Details (start date - stop date) Never Smoker NA - NA Sex Assigned At : Social History Observation Description Sex Assigned At Unknown Tobacco Use/Smoking Question Answer Notes Patient is a nonsmoker Alcohol Screen Question Answer Notes Did you have a drink contain ing alcohol in the past year? Yes How often did you have a dri nk containing alcohol in the past year? 2 to 3 times a week (3 points) How many drinks did you have on a typical day when you were drinking in the past year? 1 or 2 drinks (0 point) How often did you have 6 or more drinks on one occasion in the past year? Never (0 point) Points 3 Interpretation Negative PROBLEMS Problem Type ICD Code Onset Dates Problem Status W/U Status Risk SNOMED Code Notes Problem Diverticulitis (K57.92) Active confirmed 619332367 Problem Diverticulitis of large intestine without perforation or abscess with bleeding (K57.33) Active confirmed [id number] PLAN OF TREATMENT Future Test Test Name Order Date COLONOSCOPY 02/12/2018 Insurance Providers Payer Name Payer Address Payer Phone Subscriber Number Group Number Insured Name Patient Relationship to Insured Coverage Start Date Coverage End Date [facility] [address] [facility] [place], JOCELYNN [phone] [id number] ABBE WALTON Self - patient is the insured MEDICAL (GENERAL) HISTORY Medical History History ICD Code asthma hypertension elevated cholesterol obstructive sleep apnea hx of diverticulitis Surgical History Surgery Date(Month/Year) rotator cuff tear repair left 12/2017 left elbow as teenager
--- OUTSIDE RECORDS SUMMARY | 2024-04-24 11:03 | XMS_ITS ---
Author Organization Jl Vail DO, FAC Address [address], [place] [id number] Care Team Providers Care River Driver Name Role Phone Jl Vail Primary Care Provider ALLERGIES Allergen (clinical drug ingredient) Drug/Non Drug Allergy documented on EMR Reaction Allergy Type Onset Date Status bupropion / naltrexone Contrave drowsiness Drug Allergy Active hydrochlorothiazide Hydrochlorothiazide shakes D rug Allergy Active REASON FOR VISIT physical, annual visit MEDICATIONS Medication SIG (Take, Route, Frequency, Duration) Notes Start Date End Date Status Atorvastatin Calcium 10 MG 1 tablet Oral ly Once a day Active ProAir HFA 108 (90 Base) MCG/ACT 2 puffs as needed Inhalation every 6 hrs Active Wixela Inhub 500-50 MCG/ACT 1 puff [...] Points 2 Interpretation Negative VITAL SIGNS BMI 47.14 kg/m2 10/15/2023 Blood pressure systolic 142 mm Hg 10/15/19 24 Blood pressure diastolic 74 mm Hg 024 Height 67 in 10/15/2023 Weight 301 lbs 10/15/2023 Encounters Encounter Location Date Provider Diagnosis Jl Ramírez Yared DO, [address] [phone] 10/15/2023 Jl Vail Encounter for sundeep l adult medical examination without abnormal findings Z00.00 ; Hypercholesterolemia E78.00 ; Mild persistent asthma without complication J45.30 and Morbid (severe) obesity due to excess calories E66.01 ASSESSMENTS Encounter Date Diagnosis Assessment Notes Treatment Notes Treatment Clinical Notes 10/15/2023 Encounter for sundeep l adult medical examination without abnormal findings (ICD-10 - Z00.00) 10/15/2023 Hypercholesterolemia (ICD-10 - E78.00) 10/15/2023 Mild persistent asth ma without complication (ICD-10 - J45.30) 10/15/2023 Morbid (severe) obes ity due to excess calories (ICD-10 - E66.01) Long discussion regarding strategies for sustained weight loss. Advise [employer]. PLAN OF TREATMENT Medication Medication Name Sig Start Date Stop Date Notes Atorvastatin Calcium 10 MG 1 tablet Orally Once a day ProAir HFA 108 (90 Base) MCG/ACT 2 puffs as needed Inhalation every 6 hrs Wixela Inhub 500-50 MCG/ACT 1 puff Inhal ation Twice a day Treatment Notes Assessment Notes Morbid (severe) obesity due to excess calories Long discussion regarding strategies for sustained weight loss. Advise [employer]. Next Appt Details Follow Up: 4 Months, Reason: follow up visit,review lab work Progress Notes * Examination Category Sub-Category Detail Notes General Examination GENERAL APPEARANCE: in no ac [place] distress, well developed, well nourished HEAD: normocephalic, atrau matic EYES: sclera non-icteric NECK/THYROID: neck supple, thyroid normal, no cervical lymphadenopathy, no carotid bruit HEART: no murmurs, regular rate and rhythm, S1, S2 normal CHEST: normal LUNGS: clear to auscultatio n bilaterally ABDOMEN: normal, bowel sounds present, soft, nontender, nondistended NEUROLOGIC: nonfocal, motor stre ngth normal upper and lower extremities, sensory exam intact SKIN: warm and dry EXTREMITIES: no edema PERIPHERAL PULSES: 2+ dorsalis pedis, 2 + posterior tibial MALE GENITOURINARY no hernia, no penile lesions or discharge, no testicular mass, testes descended bilaterally PSYCH: alert, oriented, cog nitive function intact History and Physical Notes * HPI (History of Present Illness) Category Sub-Category Detail Notes Depression Screening PHQ-9 Little inte rest or pleasure in doing things: Not at all Feeling down, depressed, or hopeless: No t at all Trouble falling or staying asleep, or sl eeping too much: Not at all Feeling tired or having little energy: N ot at all Poor appetite or overeating: Not at all Feeling bad about yourself o r that you are a failure, or have let yourself or your family down: Not at all Trouble concentrating on thi ngs, such as reading the newspaper or watching television: Not at all Moving or speaking so slowly that other people could have noticed; or the opposite, being so fidgety or restless that you have been moving around a lot more than usual: Not at all Thoughts that you would be b deanna off or of hurting yourself in some way: Not at all Total Score: 0 Interpretation and Intervention Depression Omar hamm Findings: Negative Follow-Up for Depression: : Review of PH Q-9 found negative result; no follow-up needed Fall Risk Fall History Have you had two or more fal ls in the past year?: No Have you had any falls with injury in th e past year?: No Fall Risk Assessment:: No falls in the p ast year Communication Needs PCM Communication Needs - [facility] aring Impairment?: Yes mild, AU Vision Impairment?: Yes wears cheaters Cognitive Impairment?: No SDOH Questions SDOH Questions In the past year have you been worried about losing your housing?: No In the past year have you or any family members you live with been unable to get any of the following when it was really needed? Check all that apply:: None
--- OUTSIDE RECORDS SUMMARY | 2024-04-24 11:03 | XMS_ITS ---
Author Organization Jl Vail DO, FACP Address [address] [place] [phone] Care Team Providers Care French Pastry Cook Name Role Phone Jl Vail Primary Care Provider REASON FOR VISIT physical Encounters Encounter Location Date Provider Diagnosis Jl Vail DO, FACP [address] [place] [phone] 09/24/2023 Jl Vail PLAN OF TREATMENT No Information
--- NOTE | 2024-04-24 11:10 | PC.NURSE ---
Pt comes to ED today with c/o SOB and cough. (+) Hx Asthma with no relief from inhalers. A&OX3 Sepsis protocol initiated. Blood cultures, lactic level, and additional blood labs obtained. Pt medicated per MAY. Pt seen by RT for eval/treatment.
[2024-04-24 11:22] LABS: Appearance Urine Clear; Color Urine Yellow; Glucose Urine UA Negative (Negative); Leukocyte Esterase Urine Negative (Negative); Nitrite Urine Negative (Negative); PH 7.5 (5.0-9.0); Specific Gravity - Urine <= 1.005 (1.005-1.025); Urine Blood Negative (Negative); Urine Ketones Negative (Negative); Urine Protein Negative (Neg-Trace)
--- NOTE | 2024-04-24 12:49 | PC.NURSE ---
Sepsis documentation submitted to nurse unit manager.
--- NOTE | 2024-04-24 15:01 | P.HPHOSP_ITS ---
History of Present Illness Date of Service: 04/24/24 Chief Complaint: Worsening shortness of breath 53 yo male with PMH of asthma who has inhalers he has been sick since Thanksgiving on and off with either viral syndrome or stomach bug. He has not recovered. His recovered well. No recent travel or procedures, no hotel stays. He reports wosening cough, chills and fever. He saw PCP 04/09 started on zpak for multifocal pneumonia. He is not getting better now so on 04/19 they started augmentin and prednisone burst. Now as of friday worsening breathing, chest tightness, fever of 101 this AM. He overall feels sick. Review of Systems 2 Review of Systems: Denies chest pain Admits shortness of breath with productive cough that has worsened over the past several weeks Denies nausea vomiting diarrhea Admits to fever this a.m. without chills PMFSH Medical History Hyperlipidemia Asthma Social History Alcohol intake: never Patient Tobacco Use Status: Never used Tobacco Smoked in Last 30 Days: No Use of substances other than those prescribed or required for medical reasons: No Advance Directives: No Advance Directives Information Provided: No Do you have a plan to hurt others: No Plan Nutrition Risks: No Nutritional Risk Meds Allergies Allergy/AdvReac Type Severity Reaction Status Date / Time No Known Allergies Allergy Verified 04/24/24 09:39 Home Medications ?Medication ?Instructions ?Recorded ?Confirmed ?Last Taken ?Type amoxicillin 875 mg-potassium 1 tab PO BID cough 04/24/24 04/24/24 04/23/24 History clavulanate 125 mg tablet atorvastatin 10 mg tablet 10 mg PO DAILY 04/24/24 04/24/24 04/23/24 History fluticasone 500 mcg-salmeterol 50 1 ea inhalation BID 04/24/24 04/24/24 04/23/24 History mcg/dose blistr powdr for inhalation (Maury Cox) Physical Exam 2 Vital Signs and Narrative: Vital Signs: Last Vital Signs Temp 97.8 F 04/24/24 09:34 Pulse 126 H 04/24/24 13:06 Resp 23 H 04/24/24 11:52 BP 160/87 H 04/24/24 11:52 Pulse Ox 89 L 04/24/24 13:06 O2 Del Method Room Air 04/24/24 13:06 BMI result Body Mass Index 44.6 Const: Other: Awake alert no acute distress Resp: Other: Diminished throughout with faint crackles right base and expiratory wheezing Cardio: Other: No S4; positive S1-S2; no S3 murmurs rubs or gallops GI: Other: Soft nontender nondistended normoactive bowel sounds Neuro: Other: No S4; positive S1-S2; no S3 murmurs rubs or gallops Extrem: Other: No edema bilaterally Results Labs 04/25/24 05:39 04/25/24 05:39 Labs: Laboratory Results - last 24 hr 04/24/24 04/24/24 04/24/24 09:47 10:21 10:24 MCV 89.6 MCH 31.6 MCHC 35.3 RDW 12.8 Plt Count 258 MPV 10.7 Immature Gran % (Auto) 1.1 H Neut % (Auto) 88.8 H Lymph % (Auto) 5.2 L [place] % (Auto) 4.0 Eos % (Auto) 0.6 Baso % (Auto) 0.3 Lymph # (Auto) 1.2 [place] # (Auto) 1.0 Eos # (Auto) 0.2 Baso # (Auto) 0.1 Abs Immat Gran (auto) 0.26 H Absolute Neuts (auto) 21.2 H Absolute Nucleated RBC 0.000 Nucleated RBC % (auto) 0.0 Smear Tech's Comments VERIFIED Anion Gap 11 L Estim Creat Clear Calc 146.7 Estimated GFR > 60 Random Glucose 139 H Lactic Acid 1.7 Calcium 9.6 Total Bilirubin 0.8 Direct Bilirubin 0.2 AST 24 ALT 36 Alkaline Phosphatase 78 Troponin I High Sens 7.3 C-Reactive Protein 1.33 H B-Natriuretic Peptide 11 Total Protein 7.6 Albumin 4.1 Lipase 11 Urine Color Urine Appearance Urine pH Ur Specific [place] Urine Protein Urine Glucose (UA) Urine Ketones Urine Blood Urine Nitrite Ur Leukocyte Esterase Influenza Type A (PCR) NEGATIVE Influenza Type B (PCR) NEGATIVE RSV RNA Qual (PCR) NEGATIVE SARS-CoV-2 RNA (RT-PCR) NEGATIVE 04/24/24 11:15 MCV MCH MCHC RDW Plt Count MPV Immature Gran % (Auto) Neut % (Auto) Lymph % (Auto) [place] % (Auto) Eos % (Auto) Baso % (Auto) Lymph # (Auto) [place] # (Auto) Eos # (Auto) Baso # (Auto) Abs Immat Gran (auto) Absolute Neuts (auto) Absolute Nucleated RBC Nucleated RBC % (auto) Smear Tech's Comments Anion Gap Estim Creat Clear Calc Estimated GFR Random Glucose Lactic Acid Calcium Total Bilirubin Direct Bilirubin AST ALT Alkaline Phosphatase Troponin I High Sens C-Reactive Protein B-Natriuretic Peptide Total Protein Albumin Lipase Urine Color Yellow Urine Appearance Clear Urine pH 7.5 Ur Specific [place] <= 1.005 Urine Protein Negative Urine Glucose (UA) Negative Urine Ketones Negative Urine Blood Negative Urine Nitrite Negative Ur Leukocyte Esterase Negative Influenza Type A (PCR) Influenza Type B (PCR) RSV RNA Qual (PCR) SARS-CoV-2 RNA (RT-PCR) Assessment and Plan (1) Asthma exacerbation: Qualifiers: Asthma persistence: persistent Asthma severity: moderate Qualified Code(s): J45.41 - Moderate persistent asthma with (acute) exacerbation Status: Acute (2) Hyperlipidemia: Qualifiers: Hyperlipidemia type: unspecified Qualified Code(s): E78.5 - Hyperlipidemia, unspecified Status: Acute Plan 53-year-old male with past medical history of asthma who has been having worsening shortness of breath on and off since January of last year. Of recent saw PCP on 04/09 given azithromycin and steroid taper which failed to relieve his symptoms. He states his inhalers were not helpful. This a.m., fever to 101 1. Asthma exacerbation (based on exam question early infiltrate right lower lobe) -ceftriaxone/doxycycline (1) -pulse dose methylprednisolone -DuoNebs q.4 hours while awake -titrate O2 to maintain sats greater than or equal to 92% Full code Lovenox Will require at least 2 midnights of inpatient stay going forward for IV steroids and antibiotics to treat acute exacerbation of of asthma that has failed outpatient therapies. This can not be achieved a lesser acute setting Quality Stroke Does the patient have a stroke diagnosis?: No VTE Prior VTE?: No VTE Risk Level:: Medical - moderate - high VTE Device Contraindication: Treatment Not Indicated VTE Drug Contraindication: N/A - Med Ordered
[2024-04-24] MEDS: Acetaminophen 325 MG TABLET 650 MG PO ×2 (15:35→22:21)
[2024-04-24] MEDS: 0.9 % Sodium Chloride Flush 3 ML SYRINGE IVFLUSH (15:37)
--- NOTE | 2024-04-24 15:39 | PHA.MEDREC ---
Pharmacy Consult ? Medication Reconciliation Pharmacy has completed the medication reconciliation. Spoke to the pt to confirm meds.
[2024-04-24] MEDS: Enoxaparin Sodium 40 MG/0.4 ML SYRINGE SUBCUT (15:41)
[2024-04-24] MEDS: Doxycycline Hyclate 100 MG in 0.9 % Sodium Chloride 250 ML 166.67 MG IV (15:47)
[2024-04-24] MEDS: Melatonin 3 MG TABLET 6 MG PO (22:21)
[2024-04-24] MEDS: cefTRIAXone sodium 1 GM VIAL IVPUSH (22:22)
[2024-04-25] VITALS (7 sets, daily range): BP systolic 131–178; BP diastolic 62–87; PULSE 60–81; RESP 18; TEMP 36.2–36.7; O2SAT 94–96
[2024-04-25 06:00] LABS: MANUAL DIFF FLAG NO
[2024-04-25 06:02] LABS: Basophils Percent Auto 0.1 % (0-2); Eosinophils Percent Auto 0.1 % (0-4); Hematocrit 42.2 % (42.0-52.0); Hemoglobin 14.5 g/dl (14.0-18.0); Imm Gran Abs Auto 0.13 X10*3/uL (0.00-0.03); Imm Gran Pct Auto 0.8 % (0.0-0.4); Lymphocytes Absolute Auto 1.3 X10*3/uL (1.2-4.9); Lymphocytes Percent Auto 7.8 % (20-40); Mean Corpuscular HGB Conc 34.4 g/dl (31.0-36.0); Mean Corpuscular Hemoglobin 31.3 pg (27.0-33.0); Mean Corpuscular Volume 91.1 fL (80.0-98.0); Monocytes Absolute Auto 0.7 X10*3/uL (0.1-1.2); Monocytes Percent Auto 4.3 % (2-11); Neutrophils Absolute Auto 14.8 x10*3/uL (2.0-8.3); Neutrophils Percent Auto 86.9 % (45-73); Platelet Count 239 X10*3/uL (160-400); Red Blood Count 4.63 X10*6/uL (4.60-5.80); Red Cell Distribution Width 12.9 % (11.0-16.0); White Blood Count 17.1 X10*3/uL (4.8-10.8)
[2024-04-25 06:28] LABS: Alanine Aminotransferase 30 U/L (0-40); Albumin Level 3.9 g/dL (3.5-5.0); Alkaline Phosphatase 72 U/L (39-117); Anion Gap 14 (12-20); Aspartate Amino Transferase 19 U/L (5-37); Bilirubin Total 0.6 mg/dL (0.0-1.0); Blood Urea Nitrogen 20 mg/dL (9-16); Calcium 9.6 mg/dL (8.4-10.2); Carbon Dioxide 24 mmol/L (22-29); Chloride 105 mmol/L (96-108); Creatinine Clr Calc Pharmacy 139.7; Estimated Glomerular Filt Rate > 60; Glucose Random 120 mg/dL (60-115); Potassium 4.5 mmol/L (3.3-5.1); Sodium 138 mmol/L (135-145); Total Protein 7.6 g/dL (6.5-8.0)
[2024-04-25] MEDS: Doxycycline Hyclate 100 MG in 0.9 % Sodium Chloride 250 ML 166.67 MG IV (07:18)
--- NOTE | 2024-04-25 07:18 | PC.NURSE ---
this rn just took over from the mini shifter, delay in the doxycycline being hanged from the previous shift
[2024-04-25] MEDS: 0.9 % Sodium Chloride Flush 3 ML SYRINGE IVFLUSH ×4 (07:21→19:24)
--- NOTE | 2024-04-25 07:30 | PC.NURSE ---
pt is alert and oriented, skin pwd, respirations even and unlabored, ls slightly diminished, pt reports feeling tight in the lungs no pain just tightness, pt has intermitted dry cough, vs stable
[2024-04-25] MEDS: Albuterol/Iprat 2.5/0.5MG 3 ML AMPUL.NEB INHALE (07:37)
[2024-04-25] MEDS: Atorvastatin Calcium 10 MG TABLET PO (10:38)
--- NOTE | 2024-04-25 14:35 | HO.PM.IMPN ---
Subjective Subjective Date of Service: 04/25/24 Interval History: No acute events overnight. Feels marginally improved Review of Systems Denies chest pain Admits shortness of breath with productive cough that has worsened over the past several weeks Denies nausea vomiting diarrhea Admits to fever this a.m. without chills Physical Exam Vital Signs: Vital Signs: Last Vital Signs Temp 97.8 F 04/25/24 08:11 Pulse 81 04/25/24 08:11 Resp 18 04/25/24 08:11 BP 133/62 04/25/24 08:11 Pulse Ox 94 04/25/24 08:11 O2 Del Method Room Air 04/25/24 08:11 BMI result Body Mass Index 44.6 Const: Other: Awake alert no acute distress Resp: Other: Diminished throughout with faint crackles right base and expiratory wheezing Cardio: Other: No S4; positive S1-S2; no S3 murmurs rubs or gallops GI: Other: Soft nontender nondistended normoactive bowel sounds Neuro: Other: No S4; positive S1-S2; no S3 murmurs rubs or gallops Extrem: Other: No edema bilaterally Objective Data Active Medications Acetaminophen (Acetaminophen 325 Mg Tablet) 650 mg PO Q6H PRN PRN Reason: Pain, Mild 1-3,fever,headache Last Admin: 04/24/24 22:21 Dose: 650 mg Documented By: RICARDO Albuterol/Ipratropium (Albuterol/Iprat 2.5/0.5mg 3 Ml Ampul.Neb) 3 ml INHALE Q4H PRN PRN Reason: Shortness of Breath/Wheezing Last Admin: 04/25/24 07:37 Dose: 3 ml Documented By: LAUREN Atorvastatin Calcium (Atorvastatin Calcium 10 Mg Tablet) 10 mg PO DAILY [facility] Last Admin: 04/25/24 10:38 Dose: 10 mg Documented By: BOB Calcium Carbonate (Calcium Carbonate 750 Mg Tab.Chew) 750 mg PO Q4H PRN PRN Reason: Heartburn Ceftriaxone Sodium (Ceftriaxone Sodium 1 Gm Vial) 1 gm IVPUSH Q24H [facility] Last Admin: 04/24/24 22:22 Dose: 1 gm Documented By: RICARDO Enoxaparin Sodium (Enoxaparin Sodium 40 Mg/0.4 Ml Syringe) 40 mg SUBCUT Q24H [facility] Last Admin: 04/24/24 15:41 Dose: 40 mg Documented By: LALI Doxycycline Hyclate 100 mg/ (Sodium Chloride) 250 mls @ 166.67 mls/hr IV Q12H [facility] Last Infusion: 04/25/24 08:50 Dose: Infused Documented By: BOB Magnesium Hydroxide (Milk Of Magnesia 30 Ml Oral.Susp) 30 ml PO DAILY PRN PRN Reason: Constipation Melatonin (Melatonin 3 Mg Tablet) 6 mg PO BEDTIME PRN PRN Reason: Insomnia Last Admin: 04/24/24 22:21 Dose: 6 mg Documented By: RICARDO Oxycodone HCl (Oxycodone Hcl Immed Release 5 Mg Tablet) 5 mg PO Q6H PRN PRN Reason: Pain, Moderate(Pain Scale 4-6) Sodium Chloride (0.9 % Sodium Chloride Flush 3 Ml Syringe) 3 ml IVFLUSH QSHIFT [facility] Last Admin: 04/25/24 08:10 Dose: 3 ml Documented By: BOB Labs 04/25/24 05:39 04/25/24 05:39 Labs: Laboratory Results - last 24 hr 04/25/24 05:39 MCV 91.1 MCH 31.3 MCHC 34.4 RDW 12.9 Plt Count 239 MPV 12.0 Immature Gran % (Auto) 0.8 H Neut % (Auto) 86.9 H Lymph % (Auto) 7.8 L [place] % (Auto) 4.3 Eos % (Auto) 0.1 Baso % (Auto) 0.1 Lymph # (Auto) 1.3 [place] # (Auto) 0.7 Eos # (Auto) 0.0 Baso # (Auto) 0.0 Abs Immat Gran (auto) 0.13 H Absolute Neuts (auto) 14.8 H Absolute Nucleated RBC 0.000 Nucleated RBC % (auto) 0.0 Anion Gap 14 Estim Creat Clear Calc 139.7 Estimated GFR > 60 Random Glucose 120 H Calcium 9.6 Total Bilirubin 0.6 AST 19 ALT 30 Alkaline Phosphatase 72 Total Protein 7.6 Albumin 3.9 Microbiology Microbiology Results: Microbiology 04/24/24 10:24 Blood Culture - Preliminary Blood - Venous No growth after 24 hours. 04/24/24 10:21 Blood Culture - Preliminary Blood - Venous No growth after 24 hours. Assessment and Plan (1) Asthma exacerbation: Status: Acute Plan 53-year-old male with past medical history of asthma who has been having worsening shortness of breath on and off since January of last year. Of recent saw PCP on 04/09 given azithromycin and steroid taper which failed to relieve his symptoms. He states his inhalers were not helpful. This a.m., fever to 101 1. Asthma exacerbation (based on exam question early infiltrate right lower lobe) -ceftriaxone/doxycycline (2) -pulse dose methylprednisolone -DuoNebs q.4 hours while awake -titrate O2 to maintain sats greater than or equal to 92% Full code Lovenox Requires ongoing hospitalization for IV antibiotics and steroids to treat his asthma exacerbation likely related to infiltrate Quality Stroke Does the patient have a stroke diagnosis?: No VTE Prior VTE?: No VTE Risk Level:: Medical - moderate - high VTE Device Contraindication: Treatment Not Indicated VTE Drug Contraindication: N/A - Med Ordered
[2024-04-25] MEDS: Enoxaparin Sodium 40 MG/0.4 ML SYRINGE SUBCUT (16:16)
[2024-04-25] MEDS: Doxycycline Hyclate 100 MG in 0.9 % Sodium Chloride 250 ML 166 MG IV (16:16)
[2024-04-25] MEDS: cefTRIAXone sodium 1 GM VIAL IVPUSH (18:12)
[2024-04-26 04:00] VITALS: BP 144/81; PULSE 58; RESP 20; TEMP 36.4; O2SAT 94
[2024-04-26] MEDS: Doxycycline Hyclate 100 MG in 0.9 % Sodium Chloride 250 ML 166.67 MG IV (04:02)
[2024-04-26 07:27] VITALS: BP 129/83; PULSE 68; RESP 16; TEMP 36.2; O2SAT 95
[2024-04-26] MEDS: 0.9 % Sodium Chloride Flush 3 ML SYRINGE IVFLUSH (07:32)
[2024-04-26 08:09] LABS: MANUAL DIFF FLAG NO
[2024-04-26 08:16] LABS: Basophils Percent Auto 0.5 % (0-2); Eosinophils Absolute Auto 0.2 X10*3/uL (0.0-0.4); Eosinophils Percent Auto 2.4 % (0-4); Hematocrit 42.7 % (42.0-52.0); Imm Gran Abs Auto 0.11 X10*3/uL (0.00-0.03); Imm Gran Pct Auto 1.3 % (0.0-0.4); Lymphocytes Absolute Auto 1.9 X10*3/uL (1.2-4.9); Lymphocytes Percent Auto 23.1 % (20-40); Mean Corpuscular HGB Conc 32.8 g/dl (31.0-36.0); Mean Corpuscular Volume 94.5 fL (80.0-98.0); Mean Platelet Volume 11.2 fL (9.4-12.4); Monocytes Absolute Auto 0.8 X10*3/uL (0.1-1.2); Monocytes Percent Auto 9.1 % (2-11); Neutrophils Absolute Auto 5.2 x10*3/uL (2.0-8.3); Neutrophils Percent Auto 63.6 % (45-73); Platelet Count 224 X10*3/uL (160-400); Red Blood Count 4.52 X10*6/uL (4.60-5.80); Red Cell Distribution Width 13.2 % (11.0-16.0); White Blood Count 8.2 X10*3/uL (4.8-10.8)
[2024-04-26 08:48] LABS: Alanine Aminotransferase 26 U/L (0-40); Albumin Level 3.7 g/dL (3.5-5.0); Alkaline Phosphatase 64 U/L (39-117); Anion Gap 15 (12-20); Aspartate Amino Transferase 19 U/L (5-37); Bilirubin Total 0.6 mg/dL (0.0-1.0); Blood Urea Nitrogen 17 mg/dL (9-16); Calcium 8.8 mg/dL (8.4-10.2); Carbon Dioxide 21 mmol/L (22-29); Chloride 107 mmol/L (96-108); Creatinine Clr Calc Pharmacy 143.2; Estimated Glomerular Filt Rate > 60; Glucose Fasting 85 mg/dL (60-99); Potassium 4.2 mmol/L (3.3-5.1); Sodium 139 mmol/L (135-145)
[2024-04-26] MEDS: Atorvastatin Calcium 10 MG TABLET PO (09:19)
--- NOTE | 2024-04-26 09:41 | MHC.CM.PN ---
PATIENT LIVES IN A HOME W/ . FUNCTIONALLY INDEPENDENT. DENIES USE OF DME OR SERVICES. PCP LORENZA CERVANTES MD NO HCP. CM PROVIDED EDUCATION AND OFFERED ASSISTANCE. PATIENT DECLINED. DP: HOME SELF CARE. TO TRANSPORT. CM WILL CONTINUE TO FOLLOW.
--- NOTE | 2024-04-26 12:44 | PM.DS ---
DS: Providers Provider Date of Service: 04/26/24 Date of admission: 04/24/24 15:06 Date of discharge: 04/26/24 Primary care physician: Kristian Snider MD DS: Diagnosis Discharge Diagnosis (1) Asthma exacerbation: Status: Acute DS: Summary Hospital Course Hospital Course: 53 yo male with PMH of asthma who has inhalers he has been sick since Thanksgiving on and off with either viral syndrome or stomach bug. He has not recovered. His recovered well. No recent travel or procedures, no hotel stays. He reports wosening cough, chills and fever. He saw PCP 04/09 started on zpak for . He is not getting better now so on 04/19 they started augmentin and prednisone burst. Now as of friday worsening breathing, chest tightness, fever of 101 this AM. He overall feels sick. [facility] Patient admitted to general medical floor and started on ceftriaxone and doxycycline given faint crackles in right base. Over the next 48 hours his white count normalized. He was continued on pulse dose steroids and on the day of admission he was ambulatory and requesting discharge. He will be discharged home to complete a course of Ceftin and doxycycline as well as prednisone taper Time Attestation Discharge Coordination Time (in mins): 35 Quality: Safe Use of Opioids Does Pt have an Active Cancer Diagnosis on the Problem List?: No Quality: Stroke Does the patient have a stroke diagnosis?: No Physical Exam Vital Signs: Vital Signs: Last Vital Signs Temp 97.2 F 04/26/24 07:27 Pulse 68 04/26/24 07:27 Resp 16 04/26/24 07:27 BP 129/83 04/26/24 07:27 Pulse Ox 95 04/26/24 07:27 O2 Del Method Room Air 04/26/24 07:27 BMI result Body Mass Index 44.6 Const: Other: Awake alert no acute distress Resp: Other: Diminished throughout with faint crackles right base and expiratory wheezing Cardio: Other: No S4; positive S1-S2; no S3 murmurs rubs or gallops GI: Other: Soft nontender nondistended normoactive bowel sounds Neuro: Other: No S4; positive S1-S2; no S3 murmurs rubs or gallops Extrem: Other: No edema bilaterally DS: Data Data Completed and Pending Labs on day of discharge: Laboratory Results - last 24 hr 04/26/24 07:54 WBC 8.2 RBC 4.52 L Hgb 14.0 Hct 42.7 MCV 94.5 MCH 31.0 MCHC 32.8 RDW 13.2 Plt Count 224 MPV 11.2 Immature Gran % (Auto) 1.3 H Neut % (Auto) 63.6 Lymph % (Auto) 23.1 [place] % (Auto) 9.1 Eos % (Auto) 2.4 Baso % (Auto) 0.5 Lymph # (Auto) 1.9 [place] # (Auto) 0.8 Eos # (Auto) 0.2 Baso # (Auto) 0.0 Abs Immat Gran (auto) 0.11 H Absolute Neuts (auto) 5.2 Absolute Nucleated RBC 0.000 Nucleated RBC % (auto) 0.0 Sodium 139 Potassium 4.2 Chloride 107 Carbon Dioxide 21 L Anion Gap 15 BUN 17 H Creatinine 0.82 Estim Creat Clear Calc 143.2 Estimated GFR > 60 Fasting Glucose 85 Calcium 8.8 D Total Bilirubin 0.6 AST 19 ALT 26 Alkaline Phosphatase 64 Total Protein 7.0 Albumin 3.7 Preliminary micro results at discharge 04/24/24 10:24 Blood Culture - Preliminary Blood - Venous No growth after 48 hours. 04/24/24 10:21 Blood Culture - Preliminary Blood - Venous No growth after 48 hours. Discharge Plan Discharge Anticipated Discharge Date/Time: 04/26/24 12:39 Patient Disposition: Home, Self-Care Discharge Diagnosis: Asthma exacerbation secondary to RLL Referrals: Kristian Snider MD [Primary Care Provider] - 1 Week Discharge Medications: New cefuroxime axetil 500 mg tablet 500 mg PO BID 7 Days Qty: 14 0RF doxycycline hyclate 100 mg tablet 100 mg PO BID Qty: 14 0RF prednisone 10 mg tablet See Rx Instructions .Route .COMPLEX Qty: 45 0RF Rx Instructions: 10 mg orally; 5 tabs p.o. daily x3 days; 4 tabs p.o. daily x3 days; 3 tabs daily x3 days; 2 tabs daily x3 days; 1 tab daily x3 days Continued albuterol sulfate 90 mcg/actuation HFA aerosol inhaler 1 inh inhalation QID PRN (Reason: shortness of breath or wheezing) Qty: 6.7 0RF atorvastatin 10 mg tablet 10 mg PO DAILY fluticasone propion-salmeterol [Wixela Inhub] 500-50 mcg/dose blister with device 1 ea inhalation BID Discontinued amoxicillin-pot clavulanate 875-125 mg tablet 1 tab PO BID Rx Instructions: END DATE: 04/29/24 Discharge Orders: Discharge Order (Routine); Ordered 04/26/24 Ordered By: Arsh Eastno Diet: Advance to usual diet Activity on Discharge: As tolerated Stand Alone Forms: Patient Portal Discharge page Print Language: Serbian Care Plan Goals: Continue all medicines as taken prior to hospitalization Health Concerns: Complete course of doxycycline and Ceftin as ordered. Continue Advair as Trelegy is not covered by your insurance. Prednisone as ordered and a tapering dose Plan of Treatment: Follow up with PCP next available appointment Assessment: See discharge summary
--- NOTE | 2024-04-26 12:50 | MHC.CM.PN ---
Per MD rounds Patient is ready to discharge to home selfcare. Patients will provide transportation home.
--- NOTE | 2024-04-26 13:35 | P.CDIM_ITS ---
PROVIDER RESPONSE TEXT: To clarify, the appropriate diagnosis supported by the clinical indicators: Obesity Due to excess calories QUERY TEXT: PHYSICIAN'S DOCUMENTATION REQUEST Date of Query: 04/26/2024 09:03 AM EST Patient Name: Omar Thorpe Admit Date: 04/24/2024 Dear rAsh Easton DO, A review of the medical record indicates additional documentation may be needed. Please review below and update the documentation accordingly. Clinical Indicators: Height: 5ft 9in Weight: 136.9kg BMI: 44.6 If possible, please provide an associated diagnosis related to the abnormal BMI, such as: Obesity Due to excess calories Obesity Drug induced Obesity Due to other cause Specify the other cause Morbid obesity Other (explain) Clinically unable to determine (explain) Thank you, Samra Johnson, CCS, CDIS Use of terms such as suspected, likely, concern for, or probable (associated with a specific diagnosi s that is being evaluated, monitored, or treated as if it exists) are acceptable and can be coded in the inpatient se tting, when documented at the time of discharge. Please use your independent medical judgment in providing your response. THIS QUERY IS PART OF THE PERMANENT MEDICAL RECORD
--- NOTE | 2024-04-26 13:35 | P.CDIM_ITS ---
PROVIDER RESPONSE TEXT: To clarify, the appropriate diagnosis supported by the clinical indicators: Mild intermittent: with exacerbation QUERY TEXT: PHYSICIAN'S DOCUMENTATION REQUEST Date of Query: 04/26/2024 08:59 AM EST Patient Name: Omar Thorpe Admit Date: 04/24/2024 Dear Arsh Easton DO, A review of the medical record indicates additional documentation may be needed. Please review below and update the documentation accordingly. Clinical indicators: Asthma exacerbation. Ceftriaxone/doxycycline Pulse dose methylprednisolone/DuoNebs. Titrate O2 to maintain sats greater than or equal to 92%. Based on the above, please clarify any further specificity regarding the [facility] of your Progress note: Mild intermittent Please specify if with or without acute exacerbation or status asthmaticus Mild persistent Please specify if with or without acute exacerbation or status asthmaticus Moderate persistent Please specify if with or without acute exacerbation or status asthmaticus Severe persistent Please specify if with or without acute exacerbation or status asthmaticus Exercise induced Please specify if with or without acute exacerbation or status asthmaticus Other (explain) Clinically unable to determine (explain) Thank you, Samra Johnson, CCS, CDIS Use of terms such as suspected, likely, concern for, or probable (associated with a specific diagnosi s that is being evaluated, monitored, or treated as if it exists) are acceptable and can be coded in the inpatient se tting, when documented at the time of discharge. Please use your independent medical judgment in providing your response. THIS QUERY IS PART OF THE PERMANENT MEDICAL RECORD
== END 2024-04-26 14:47 | disposition home or self-care (01) | DRG 141 ==
LOC: HO.ED 13:02 → HO.EDOVER 15:18 → HO.S3 04-25 17:11
PROVIDERS: Admitting Provider Hospitalist; Emergency Provider Emergency Medicine; PCP Internal Medicine; Visit Provider Hospitalist
DX: J45.41 Moderate persistent asthma with (acute) exacerbation (principal); E66.09 Other obesity due to excess calories; E78.5 Hyperlipidemia, unspecified; Z20.822 Contact with and (suspected) exposure to COVID-19; Z68.41 Body mass index [BMI] 40.0-44.9, adult; Z79.51 Long term (current) use of inhaled steroids; Z79.899 Other long term (current) drug therapy
CPT/HCPCS: 0241U; 36415; 71250; 80048; 80053; 80076; 81003; 83605; 83690; 83880; 84484; 85025; 86140; 87040; 93005; 94640; 99285; J0692; J0696; J1650; J2919; J7120

== ENCOUNTER → 2024-04-24 09:55 | Outpatient (BNV) | payer OTHER, SELFPAY | PROVIDERS: Admitting Provider Hospitalist; Emergency Provider Emergency Medicine; PCP Internal Medicine; Visit Provider Internal Medicine Cardiovascular Disease | DX: R00.0 Tachycardia, unspecified (principal) | CPT/HCPCS: 93010 ==

== ENCOUNTER → 2024-04-24 09:55 | Outpatient (BNV) | payer OTHER, SELFPAY | PROVIDERS: Emergency Provider Emergency Medicine; PCP Internal Medicine; Visit Provider Radiology Diagnostic Radiology | DX: E04.1 Nontoxic single thyroid nodule (principal) | CPT/HCPCS: 71250 ==

== ENCOUNTER → 2024-04-24 15:06 | Outpatient (BNV) | payer OTHER, SELFPAY | PROVIDERS: Admitting Provider Hospitalist; Emergency Provider Emergency Medicine; PCP Internal Medicine; Visit Provider Hospitalist | DX: J45.41 Moderate persistent asthma with (acute) exacerbation (principal) | CPT/HCPCS: 99239 ==

== ENCOUNTER 2024-05-06 10:13 | Outpatient (REF) | payer OTHER, SELFPAY ==
--- NOTE | ~2024-05-06 | XR_ITS ---
EXAMINATION: XR CHEST CLINICAL INFORMATION: J45.909 - Unspecified asthma, uncomplicated COMPARISON: April 19, 2024. TECHNIQUE: 2 views of the chest were obtained. FINDINGS: Indistinct margins in the perihilar regions. No gross pleural effusion or pneumothorax. No hyperinflation. Heart silhouette is normal in size. Multilevel thoracic spondylosis. XR/XR chest 2V IMPRESSION: Mild interstitial lung edema versus acute small airway disease Electronically signed by: Rafi Herndon MD 05/06/2024 11:59 AM EST
== END 2024-05-06 10:14 | disposition home or self-care (01) ==
LOC: HO.XRAY 10:13
PROVIDERS: PCP Internal Medicine; Visit Provider Physician Assistant Medical
DX: J45.909 Unspecified asthma, uncomplicated (principal); R05.9 Cough, unspecified; E04.1 Nontoxic single thyroid nodule; I10 Essential (primary) hypertension; Z23 Encounter for immunization
CPT/HCPCS: 71046; 90471; 90656; 96127

== ENCOUNTER 2024-05-06 10:13 | Outpatient (AMB) | payer OTHER, SELFPAY ==
[2024-05-06 10:18] VITALS: BP 192/92; PULSE 85; TEMP 35.8; O2SAT 96; BMI 45.0
--- NOTE | 2024-05-06 10:18 | A.OFFPC_ITS ---
Vital Signs 05/06/24 10:18 Height 5 ft 9 in Weight 304 lb 10.861 oz BMI 45.0 BP 192/92 H Blood Pressure Location Lt brachial Position Sitting Pulse 85 Pulse Source Pulse Oximeter Temp 96.4 F L Temp Source Temporal Artery Scan Pulse Oximetry (%) 96 Oxygen Delivery Method Room Air Intake Visit Reasons: [facility] 04/26 Asthma Intake Note: Visit Reason: [facility] Intake Note: Patient is here for hospital discharge follow up. Patient was discharged from [employer] Support Required: No Data Support Specialist: Not Required per policy Accompanied by: Self / Same As Patient Allergies No Known Allergies Allergy (Verified 05/06/24 10:48) Medication List - Last Reconciled 05/06/24 by Elizabeth Garza PA-C albuterol sulfate 90 mcg/actuation 1 inh inhalation QID PRN atorvastatin 10 mg PO DAILY fluticasone propion-salmeterol 500-50 mcg/dose (Wixela Inhub) 1 ea inhalation BID prednisone 10 mg orally; 5 tabs p.o. daily x3 days; 4 tabs p.o. daily x3 days; 3 tabs daily x3 days; 2 tabs daily x3 days; 1 tab daily x3 days Tobacco use date assessed: 05/06/24 Dental Screening Dental Screen Date: 05/06/24 Did you have a dental visit in the last 12 months?: Yes Did you have a dental problem in the last 6 months where you did not have access to dental care?: No Was dental information given to patient?: Patient has dentist [facility] Information Date of Discharge 04/26/24 Discharged From [facility] Interactive Contact Date (Reference documentation from this date) 04/27/24 [facility] Medical History (Updated 05/06/24 @ 17:50 by Elizabeth Garza PA-C) Hypertension Thyroid nodule Hyperlipidemia Asthma Social History Household Members: Spouse Housing: House Do you presently have visiting nurse or other home services: No Alcohol intake: never Patient Tobacco Use Status: Never used Tobacco e-Cigarette/Vaping Use: Never Used Second Hand Smoke Exposure: No service: No Cognitive needs: No Hearing needs: No Vision needs: No Questionnaire PHQ-9 Over the last 2 weeks, how often have you been bothered by any of the following problems? 1. Little interest or pleasure in doing things: not at all 2. Feeling down, depressed, or hopeless: not at all 3. Trouble falling or staying asleep, or sleeping too much: not at all 4. Feeling tired or having little energy: not at all 5. Poor appetite or overeating: not at all 6. Feeling bad about yourself - or that you are a failure or have let yourself or your family down: not at all 7. Trouble concentrating on things, such as reading the newspaper or watching television: not at all 8. Moving or speaking so slowly that other people could have noticed. Or the opposite - being so fidgety or restless that you have been moving around a lot more than usual: not at all 9. Thoughts that you would be better off or of hurting yourself in some way: not at all Total score: 0 Depression Screening Interpretation: Negative Depression Screening Done: Yes 81356 - PHQ-9 Billing: Yes Source: Developed by Drs. Jl Spaulding, Neyda Buitrago, Valdez Razo and colleagues, with an educational amarilis from [employer]. Thrive Questionnaire Date Thrive assessed: 05/06/24 I am a: Patient What is your living situation today?: I have a steady place to live Within the past 12 months, did the food you bought not last and you didn't have the money to get more?: Never true Within the past 12 months, did you worry whether your food would run out before you got money to buy more?: Never true Do you have trouble paying for medicines?: No Do you have trouble getting transportation to medical appointments?: No Do you have trouble paying your heating and electricity bill?: No Do you have trouble taking care of your child, family member or friend?: No Do you have trouble with day-to-day activities such as bathing, preparing meals, shopping, managing finances, etc.?: No Are you currently unemployed and looking for a job?: No Are you interested in more education?: No Please select the resources that you would like help with: None Currently or been in a relationship where the following occur: No concerns reported THRIVE Score: 0 AUDIT C Alcohol Use Questionnaire (AUDIT-C) 1. How often do you have a drink containing alcohol?: Monthly or less 2. How many drinks containing alcohol do you have on a typical day when you are drinking?: 1 or 2 3. How often do you have six or more drinks on one occasion?: Never Total Score: 1 ANIL-7 AMB Questionnaire ANIL-7 Date ANIL - 7 assessed: 05/06/24 Feeling nervous, anxious, or on edge: 0 = Not at all Not being able to stop or control worryin = Not at all Worrying too much about different things: 0 = Not at all Trouble relaxin = Not at all Being so restless that it is hard to sit still: 0 = Not at all Becoming easily annoyed or irritable: 0 = Not at all Feeling afraid as if something awful might happen: 0 = Not at all Total ANIL-7 score (0-4 normal; 5-9 mild; 10-14 moderate; 15-21 severe): 0 Source: Developed by Drs. Jl Spaulding, Neyda Buitrago, Valdez Razo and colleagues, with an educational amarilis from [employer]. ANIL-7 Assessment Billing ANIL-7 Assessment Tool: ANIL-7 Assessment 47403 ACT Questionnaire In the past 4 weeks, how much of the time did your asthma keep you from getting as much done at work, school or at home?: A little of the time During the past 4 weeks, how often have you had shortness of breath?: 3-6 times a week During the past 4 weeks, how often did your asthma symptoms wake you up at night or earlier than usual in the morning?: Once or twice per week During the past 4 weeks, how often have you had to use your rescue inhaler or nebulizer medication?: 1-2 times a week How would you rate your asthma control during the past 4 weeks?: Somewhat controlled Score: 16 Physical exam (Primary Care) Vital Signs: Last Vital Signs Temp 96.4 F L 05/06/24 10:18 Pulse 85 05/06/24 10:18 BP 192/92 H 05/06/24 10:18 Pulse Ox 96 05/06/24 10:18 Oxygen Delivery Method Room Air 05/06/24 10:18 Vitals signs have been reviewed. Care Plan Goal for BP management: <130/80 BMI result Body Mass Index 45.0 BMI Assessment/Plan discussion: High BMI High, discussed plan: lifestyle, weight reduction, dietary, physical activity and alcohol moderation Tobacco/Smoking Status: Tobacco use Status Tobacco use date assessed 05/06/24 05/06/24 10:29 Patient Tobacco Use Status Never used Tobacco 05/06/24 10:21 e-Cigarette/Vaping Use Never Used 05/06/24 10:29 PHQ-9: PHQ-9 Score PHQ-9: Total score 0 05/06/24 10:49 Depression Screening Interpretation: Negative Thrive Assessment: Date of Thrive Assessment Date Thrive assessed 05/06/24 05/06/24 10:29 Currently or been in a relationship where the following occur: No concerns reported Office Procedures Flu Questionnaire Does the patient have a severe egg allergy?: No Does the patient have severe life threatening allergies?: No Does the patient have a fever or illness today?: Yes Has the patient ever had Guillain-[place] Syndrome?: No Has the patient ever had any past reaction to a flu shot?: No Immunizations Fluarix Triv 9713-2371 (PF) 45 mcg (15 mcg x 3)/0.5 mL IM syringe Performing Provider: Elizabeth Garza PA-C [facility] Administered by: NINO Alexander on 05/06/24 10:32 Dose Route Admin Location Dispensed Lot Number Expiration Date [facility] Legal Summer Intern 0.5 mL IM Right Deltoid 0.5 mL [id number] 09/27/24 [id number] [employer] VIS Given Date VIS Provided VIS Publication Date 05/06/24 Single Vaccine 20 Eligibility Eligibility Date Funding Source Not [facility] Eligible 05/06/24 Private Coding Level of Care Code TCM High MDM <= 7 Days Complex EM visit Add On G2211 Diagnoses Asthma J45.909 Cough R05.9 Thyroid nodule E04.1 Hypertension I10 Additional Codes ANIL-7 Assessment Billing - ANIL-7 Assessment Tool: ANIL-7 Assessment 28168 ([id number]) PHQ-9 - 38337 - PHQ-9 Billing: Yes ([id number]) Assessment & Plan Assessment & Plan (1) Asthma: Code(s): J45.909 - Unspecified asthma, uncomplicated Category: Medical Plan: Patient to be prescribed albuterol inhaler, albuterol for a nebulizer machine, prescribed a nebulizer machine and referral to pulmonology and instructions to continue his prednisone as previously prescribed. Condition is chronic and stable will continue to monitor (2) Cough: Code(s): R05.9 - Cough, unspecified Category: Medical Plan: Will repeat chest x-ray. Patient to follow-up with pulmonology. Condition is chronic and stable. (3) Thyroid nodule: Code(s): E04.1 - Nontoxic single thyroid nodule Category: Medical Plan: An incidental thyroid nodule was noted on a CT scan of the chest when the patient was in the hospital recommending nonemergent ultrasound of thyroid. Nonemergent ultrasound ordered at this time. Will continue to monitor. (4) Hypertension: Code(s): I10 - Essential (primary) hypertension Category: Medical Plan: Patient noted to be hypertensive at 192/92. Denies any cardiac related complaints. All other vitals within normal limits. Patient will be started on lisinopril 10 mg daily with instructions return in 2 weeks for follow-up. Condition is stable. Plan Plan - Pursue pulmonology referral for asthma management and evaluation. - Issue a spacer for inhaler use; consider providing a nebulizer to manage exacerbations. - Prescribe lisinopril for hypertension management in light of previous high readings. - Order thyroid ultrasound to evaluate the noted thyroid nodule. - Initiate blood tests including a thyroid panel and complete metabolic profile to assess overall health. - Arrange for a repeat chest X-ray to rule out pneumonia and assess respiratory recovery. Orders: Orders Influenza [id number] Immunization Today Z23 - Encounter for immunization US thyroid Today E04.1 - Nontoxic single thyroid nodule Complete Blood Count Auto Diff Today Z00.00 - Encounter for general adult medical examination without abnormal findings Lipid Panel Today Z00.00 - Encounter for general adult medical examination without abnormal findings Liver Panel Today Z00.00 - Encounter for general adult medical examination without abnormal findings Magnesium Today Z00.00 - Encounter for general adult medical examination without abnormal findings TSH reflex Free T4 Today Z00.00 - Encounter for general adult medical examination without abnormal findings Vitamin B12 and Folate Today Z00.00 - Encounter for general adult medical examination without abnormal findings Comprehensive [place]. Panel Fast Today Z00.00 - Encounter for general adult medical examination without abnormal findings B Type Natriuretic Peptide Today R60.0 - Localized edema XR chest 2V Today J45.909 - Unspecified asthma, uncomplicated, R05.9 - Cough, unspecified Hemoglobin A1c Today Z00.00 - Encounter for general adult medical examination without abnormal findings PSA,Total (Free>4and<10) Today Z00.00 - Encounter for general adult medical examination without abnormal findings Vitamin D 25-OH Total Today Z00.00 - Encounter for general adult medical examination without abnormal findings Referrals Pulmonology Referral J45.909 - Unspecified asthma, uncomplicated Medications: New lisinopril 10 mg PO DAILY 90 tabs 1RF hypertension codeine-guaifenesin 10-100 mg/5 mL 5 mL PO Q6H PRN 120 mL 0RF cough nebulizers (AeroEclipse II Nebulizer) As directed 1 ea 0RF sob, wheezing J45.909 - Unspecified asthma, uncomplicated, R05.9 - Cough, unspecified ipratropium-albuterol 0.5 mg-3 mg(2.5 mg base)/3 mL 3 mL inhalation Q6-8H PRN 180 mL 1RF wheezing albuterol sulfate 90 mcg/actuation please provide spacer and accessories for nebulizer such as tubing 1 inh inhalation QID PRN 6.7 grams 0RF shortness of breath or wheezing Patient Instructions: Patient Instructions - Use the inhaler with the spacer as prescribed to manage asthma symptoms. - If a nebulizer is provided, utilize it as directed for persistent respiratory symptoms. - Start lisinopril as prescribed to manage blood pressure. - Await contact for scheduling the thyroid ultrasound and repeat chest X-ray. - Monitor blood pressure daily at home and record readings. - Return for follow-up in two weeks to reassess blood pressure and asthma management. - Maintain current medications and complete the prednisone taper. - Seek medical attention if experiencing new or worsening respiratory symptoms, fever, or significant side effects from medications. Scribe Plan - Not visible on output: History of Present Illness The patient is a 53-year-old male presenting to the office for a TCM visit. He was admitted to [facility] on April 24, 2024, and discharged on April 26, 2024, for asthma exacerbation. HPI: The asthma exacerbation was precipitated by a viral syndrome following Thanksgiving, leading to a persistent cough, chills, and fever. Initially, he was started on azithromycin on April 09, but with no improvement, he was prescribed Augmentin and prednisone on April 19. Despite these treatments, the patient's symptoms worsened, prompting the hospital admission. Hospital Course/Discharge Summary: During the hospitalization, ceftriaxone and doxycycline were administered due to faint crackles in the lung bases. The condition improved with significant reduction in white blood cell count, leading to discharge with cefdinir, doxycycline, and prednisone. The patient continues to experience morning tightness and increased use of inhalers. He reports persisting greenish-yellow sputum production. He is concerned about the possibility of further exacerbations after completing antibiotics. Patient admitted to general medical floor and started on ceftriaxone and doxycycline given faint crackles in right base. Over the next 48 hours his white count normalized. He was continued on pulse dose steroids and on the day of admission he was ambulatory and requesting discharge. He will be discharged home to complete a course of Ceftin and doxycycline as well as prednisone taper Discharged to/Current Location: To his house Diagnosis: Asthma exacerbation, incidental thyroid nodule Procedures performed: Chest x-ray New medications: Patient was started on ceftriaxone and doxycycline along with prednisone Discontinued medications: No medications were discontinued Change medications/dosing: No changes in medication Pending labs: No pending labs Pending diagnostic test: No pending diagnostic test Any Follow-up Labs required? No follow-up labs are required Any Follow-up Diagnostic test required? Patient will need thyroid ultrasound due to incidental thyroid nodule [address] of chest How are you feeling? Patient reports his symptoms have improved significantly although still has some green/yellow sputum production and mild chest tightness which is improving Are you in any pain or discomfort? Denies any pain or discomfort at this time Do you have any questions about your condition or discharge instructions? Patient understood his condition and his discharge instructions Were you able to get your medications filled? Patient was able to fill all his medication Do you have any questions about your medications? All the patient's questions were answered about his medication Any referrals required? No referrals mentioned by the hospital although will refer to pulmonology at this Were you able to schedule your follow-up appointment? Patient was able to schedule all follow-up visits If home health was ordered, have they contact you? None were ordered or required per patient Any outpatient services, if so, are you scheduled? No outpatient services indicated per patient Are there any additional resources like transportation you might need during her recovery? No additional services required per patient - VNA? Patient declined - DESIGN DIRECTOR? Patient declined - Meals on wheels? Patient declined Educational need/resources: No additional educational needs or resources indicated What support system do you have? Patient has family Social History - Employment: active employment is mentioned. - Exercise: Engages in cycling and occasionally running; active lifestyle prior to illness. - Smoking: No history of tobacco use; rare cannabis use, about once or twice a year. - Nutrition: States nutritional habits declined since January; feels ravenous on prednisone. - Weight gain noted during prednisone therapy. Review of Systems - Respiratory: Reports morning tightness and increased inhaler use. - General: Reports no fever since hospitalization. Physical Exam Appearance: Alert. Oriented X3. No acute distress. Head: Normal external exam. Normocephalic. Atraumatic. Eyes: Pupils are equal, round, and reactive to light. Extraocular movements intact. Conjunctiva and sclera normal. Eyelids normal. Ears: External auditory canal normal. Tympanic membranes normal. Throat: Pharynx normal. Uvula midline. Moist mucous membranes. Neck: Normal inspection. Neck supple. Full range of motion. No adenopathy. Thy roid Normal. No meningeal signs. No neck mass noted. Cardiovascular: Normal heart rate and rhythm. Heart sound normal. No murmurs noted. Pulses normal throughout. Respiratory: No respiratory distress. Painless inspiration. Breath sounds normal. Faint crackles in the right base lungs. No wheezes/rales/rhonchi noted. Chest nontender. No accessory muscle usage noted or decreased air movement noted. Abdomen: Soft and nontender. Bowel sounds normal in all 4 quadrants. No distention noted. No organomegaly noted. No visible injury noted. Back: No costovertebral angle tenderness. Full range of motion noted. Skin: Skin warm and dry. Normal skin color. Normal skin turgor. No rashes/lesions/lacerations noted. Extremities: No lower extremity edema. Extremities exhibit normal range of motion. Extremities nontender. Neuro: Oriented X 3. No motor deficit. No sensory deficit. Reflexes normal. Results - Chest CT: Incidentally noted a 24 mm right thyroid nodule. - Recent blood work: Slightly elevated glucose, normal cholesterol, and blood counts. Plan - Pursue pulmonology referral for asthma management and evaluation. - Issue a spacer for inhaler use; consider providing a nebulizer to manage exa cerbations. - Prescribe lisinopril for hypertension management in light of previous high readings. - Order thyroid ultrasound to evaluate the noted thyroid nodule. - Initiate blood tests including a thyroid panel and complete metabolic profile to assess overall health. - Arrange for a repeat chest X-ray to rule out pneumonia and assess respiratory recovery. Patient was informed and verbally consented to the use of an ambient scribe for clinic note documentation during this visit. Discussion Notes During the consultation, I discussed the management of the patient's asthma, including the potential use of a spacer and nebulizer to optimize medication delivery. The need for pulmonology referral was outlined to explore additional therapies. We deliberated on the use of lisinopril as the most appropriate antihypertensive agent considering the steroid-related blood pressure elevation and chronic hypertension risk. I emphasized the importance of completing the thyroid ultrasound following the incidental finding of a nodule on the CT scan to ensure early identification and management of potential thyroid issues. Repeat imaging of the chest was agreed upon to verify clinical recovery and exclude further complications. Follow-up will be reassessed in two weeks to monitor blood pressure and asthma control. Patient Instructions - Use the inhaler with the spacer as prescribed to manage asthma symptoms. - If a nebulizer is provided, utilize it as directed for persistent respiratory symptoms. - Start lisinopril as prescribed to manage blood pressure. - Await contact for scheduling the thyroid ultrasound and repeat chest X-ray. - Monitor blood pressure daily at home and record readings. - Return for follow-up in two weeks to reassess blood pressure and asthma management. - Maintain current medications and complete the prednisone taper. - Seek medical attention if experiencing new or worsening respiratory symptoms, fever, or significant side effects from medications.
== END 2024-05-06 11:13 | disposition home or self-care (01) ==
LOC: HO.HMCH 10:13
PROVIDERS: PCP Internal Medicine; Visit Provider Physician Assistant Medical
DX: J45.909 Unspecified asthma, uncomplicated (principal); R05.9 Cough, unspecified; E04.1 Nontoxic single thyroid nodule; I10 Essential (primary) hypertension; Z23 Encounter for immunization

== ENCOUNTER → 2024-05-06 11:25 | Outpatient (BNV) | payer OTHER, SELFPAY | PROVIDERS: PCP Internal Medicine; Visit Provider Radiology Diagnostic Radiology | DX: J84.9 Interstitial pulmonary disease, unspecified (principal) | CPT/HCPCS: 71046 ==

== ENCOUNTER 2024-05-08 07:01 | Outpatient (REF) | payer OTHER, SELFPAY ==
--- OUTSIDE RECORDS SUMMARY | 2024-05-08 07:04 | XMS_ITS ---
Author Organization Jl Vail DO, FACP Address [address] [place] [phone] Care Team Providers Care Consumer Lending Manager Name Role Phone Jl Vail Primary Care Provider REASON FOR VISIT physical Encounters Encounter Location Date Provider Diagnosis Jl Vail DO, FACP [address] [place] [phone] 09/24/2023 Jl Vail PLAN OF TREATMENT No Information
--- OUTSIDE RECORDS SUMMARY | 2024-05-08 07:04 | XMS_ITS ---
Author Organization Jl Vail DO, FAC Address [address], [place] [id number] Care Team Providers Care Mechanical Lead Name Role Phone Jl Vail Primary Care [...] Date Provider Diagnosis Jl Ramírez Yared DO, [address] [phone] 10/15/2023 Jl Vail Encounter for sundeep l [...] year Communication Needs PCM Communication Needs - [facility] aring Impairment?: Yes mild, [place] Vision Impairment?: [...]
--- OUTSIDE RECORDS SUMMARY | 2024-05-08 07:04 | XMS_ITS | Patient Health Record ---
Author Organization [facility] Address [address] [place] [address] Care Team Providers Care Semiconductor Wafer Inspector Name Role Phone Yared (RETIRED) Jl RUSSELL [...] Code Notes Problem Diverticulitis (K57.92) Active confirmed 750209725 Problem Diverticulitis of large intestine without perforation or abscess with bleeding (K57.33) Active confirmed 0950009 PLAN OF TREATMENT Future Test Test Name Order Date COLONOSCOPY 02/12/2018 Insurance Providers Payer Name Payer Address Payer Phone Subscriber Number Group Number Insured Name Patient Relationship to Insured Coverage Start Date Coverage End Date [facility] [address] [facility] [place], [place] [phone] [id number] ABBE WALTON Self - patient is the insured MEDICAL (GENERAL) HISTORY Medical History History ICD Code asthma hypertension elevated cholesterol obstructive sleep apnea hx of diverticulitis Surgical History Surgery Date(Month/Year) rotator cuff tear repair left 12/2017 left elbow as teenager
[2024-05-08 10:59] LABS: B Type Natriuretic Peptide < 10 pg/mL (<100)
[2024-05-08 11:15] LABS: MANUAL DIFF FLAG NO
[2024-05-08 11:18] LABS: Basophils Percent Auto 0.4 % (0-2); Eosinophils Absolute Auto 0.1 X10*3/uL (0.0-0.4); Eosinophils Percent Auto 1.2 % (0-4); Hematocrit 40.5 % (42.0-52.0); Hemoglobin 13.6 g/dl (14.0-18.0); Imm Gran Abs Auto 0.13 X10*3/uL (0.00-0.03); Imm Gran Pct Auto 1.3 % (0.0-0.4); Lymphocytes Percent Auto 20.2 % (20-40); Mean Corpuscular HGB Conc 33.6 g/dl (31.0-36.0); Mean Corpuscular Hemoglobin 31.5 pg (27.0-33.0); Mean Corpuscular Volume 93.8 fL (80.0-98.0); Mean Platelet Volume 11.8 fL (9.4-12.4); Monocytes Absolute Auto 0.7 X10*3/uL (0.1-1.2); Monocytes Percent Auto 7.3 % (2-11); Neutrophils Absolute Auto 6.8 x10*3/uL (2.0-8.3); Neutrophils Percent Auto 69.6 % (45-73); Platelet Count 228 X10*3/uL (160-400); Red Blood Count 4.32 X10*6/uL (4.60-5.80); Red Cell Distribution Width 13.4 % (11.0-16.0); White Blood Count 9.7 X10*3/uL (4.8-10.8)
[2024-05-08 11:31] LABS: Estimated Average Glucose 120 mg/dL; Hemoglobin A1C 142.6968 umol/L; Hemoglobin A1c % 5.8 % (<6.0); Total Hemoglobin (HGBA1C) 3531.1135 umol/L
[2024-05-08 11:43] LABS: Alanine Aminotransferase 28 U/L (0-40); Albumin Level 3.8 g/dL (3.5-5.0); Alkaline Phosphatase 60 U/L (39-117); Anion Gap 12 (12-20); Aspartate Amino Transferase 20 U/L (5-37); Bilirubin Direct 0.2 mg/dL (0.0-0.5); Bilirubin Total 0.7 mg/dL (0.0-1.0); Blood Urea Nitrogen 22 mg/dL (9-16); Calcium 9.4 mg/dL (8.4-10.2); Carbon Dioxide 23 mmol/L (22-29); Chloride 109 mmol/L (96-108); Cholesterol 155 mg/dL (<200); Estimated Glomerular Filt Rate > 60; Glucose Fasting 85 mg/dL (60-99); HDL Cholesterol 51 mg/dL (>40); LDL Cholesterol Calculated 82 mg/dL (<100); Potassium 3.9 mmol/L (3.3-5.1); Sodium 140 mmol/L (135-145); Triglycerides 110 mg/dL (<150)
[2024-05-08 11:55] LABS: PSA,Total (Free>4and<10) 0.39 ng/mL (0.00-4.00)
[2024-05-08 12:01] LABS: TSH reflex Free T4 2.01 uIU/mL (0.32-4.0); Vitamin D 25-OH Total 40.2 ng/mL (>30)
[2024-05-08 12:18] LABS: Folate > 20.0 ng/mL (> or = 4.0); Vitamin B12 479 pg/mL (200-900)
== END 2024-05-08 07:02 | disposition home or self-care (01) ==
LOC: HO.HMGCLDS 07:01
PROVIDERS: PCP Internal Medicine; Visit Provider Physician Assistant Medical
DX: Z00.00 Encounter for general adult medical examination without abnormal findings (principal); R60.0 Localized edema; Z12.5 Encounter for screening for malignant neoplasm of prostate; Z13.1 Encounter for screening for diabetes mellitus
CPT/HCPCS: 36415; 80053; 80061; 80076; 82248; 82306; 82607; 82746; 83036; 83735; 83880; 84153; 84443; 85025

== ENCOUNTER 2024-05-10 13:46 | Outpatient (REF) | payer OTHER, SELFPAY ==
--- NOTE | ~2024-05-10 | US_ITS ---
EXAMINATION: US THYROID HISTORY: E04.1 - Nontoxic single thyroid nodule TECHNIQUE: Real-time grayscale ultrasound imaging was performed and images were reviewed. COMPARISON: Correlation is made with a chest CT dated 04/24/2024. FINDINGS: SIZE: The right thyroid lobe measures 4.8 x 3.0 x 2.1 cm. The left thyroid lobe measures 5.5 x 1.7 x 1.5 cm. The isthmus measures 2 mm. FLOW: Flow to the gland is normal. ECHOGENICITY: The echotexture of the gland is homogeneous. NODULES: There is a solitary nodule at the lower pole of the right thyroid lobe with imaging characteristics as follows: Nodule #: 1 Location: Lower pole right thyroid lobe measuring 4.0 x 2.6 x 2.1 cm. Shape: Ovoid, taller than wide. Margins: Somewhat ill-defined, with extrathyroidal extension. Echotexture: Hypoechoic Morphology: Solid Calcifications: None TIRADS: TR5: Highly suspicious. US/US thyroid IMPRESSION: Suspicious 4.0 x 2.6 x 2.1 cm nodule at the lower pole the right thyroid lobe. Ultrasound-guided fine-needle aspiration is recommended. ACR TI-RADS Guidelines TR1: Benign, No follow-up or biopsy required TR2: Not Suspicious, No biopsy indicated TR3: Mildly Suspicious, FNA if >= 2.5 cm, Follow if >= 1.5 cm TR4: Moderately Suspicious, FNA if >= 1.5 cm, Follow if >= 1.0 cm TR5: Highly Suspicious, FNA if >= 1.0 cm, Follow if >= 0.5 cm Electronically signed by: Jl Mercado MD 05/24/2024 11:[facility]
--- OUTSIDE RECORDS SUMMARY | 2024-05-10 14:53 | XMS_ITS | Patient Health Record ---
Author Organization Jl Vail DO, FAC Address [address] [place] [id number] Care Team Providers Care Manager Machine Name Role Phone Jl Vail Primary Care Provider [phone] ALLERGIES Allergen (clinical drug ingredient) Drug/Non Drug Allergy documented on EMR Reaction Allergy Type Onset Date Status bupropion / naltrexone Contrave drowsiness Drug Allergy Active hydrochlorothiazide Hydrochlorothiazide shakes D rug Allergy Active RESULTS Component Value Reference Range Notes Complete Blood Count Auto Di ff Reviewed date:02/16/2024 10:32:14 AM Interpretation:Abnormal Performing Lab:[facility], [address] [place] [phone] Notes/Report: White Blood Count 5.1 4.8-10.8 X10*3/uL [...] NRBC Abs Auto 0.000 0.0-0.012 X10*3/uL Comprehensive [facility]. Panel Fa st Reviewed date:02/16/2024 11:28:37 AM Interpretation:Abnormal Performing Lab:[facility], [address] [place] [phone] Notes/Report: Sodium 139 135-145 mmol/L Potassium 4.4 [...] Panel Reviewed date:02/16/2024 11:28:37 AM Interpretation:Normal Performing Lab:[facility], [address] [place] [phone] Notes/Report: Triglycerides 100 <150 mg/dL Desirable Triglyceride: [...] (Free>4and<10) Reviewed date:02/16/2024 11:28:37 AM Interpretation:Normal Performing Lab:[facility], [address] [place] [phone] Notes/Report: PSA,Total (Free>4and<10) 0.66 0.00-4.00 ng/mL A [...] Total Reviewed date:02/16/2024 11:28:37 AM Interpretation:Normal Performing Lab:[facility], [address] [place] [phone] Notes/Report: Vitamin D 25-OH Total 38.7 >30 [...] Hormone Reviewed date:02/16/2024 11:28:37 AM Interpretation:Normal Performing Lab:[facility], [address] [place] [phone] Notes/Report: Thyroid Stimulating Hormone 1.02 0.32-4.0 uIU/ mL TSH 3rd Generation ([facility]) Hemoglobin A1c Reviewed date:02/16/2024 10:32:14 AM Interpretation:Normal Performing Lab:[facility], [address] [place] [phone] Notes/Report: Hemoglobin A1c % 5.6 <6.0 % [...] average glucose, using the formula of the [id number] Average Glucose study (ADAG), Diabetes Care, Vol.31,#8, [...] Problem Vitamin D deficiency (E55.9) Active confirmed 89229784 Problem Morbid (severe) obesity due to excess calories (E66.01) Active confirmed 02934526712611 Problem Anxiety (F41.9) Active confirmed 162750 02 Problem Mild persistent asth ma without complication (J45.30) Active confirmed 065031698 Problem Eczema, unspecified type (L30.9) Active confirmed 90533588 Problem Hypercholesterolemia (E78.00) Active confirmed 57106747 Problem Diverticulitis (K57.92) Active confirmed 624498984 Problem Tear of left rotator cuff, unspecified tear extent (M75.102) Active confirmed 8952787 VITAL SIGNS Blood pressure diastolic 82 mm Hg 02/17/2024 Height 67 in 02/17/2024 Blood pressure systolic 140 mm Hg 02/17/2024 Weight 306 lbs 02/17/2024 BMI 47.92 kg/m2 02/17/2024 Encounters Encounter Location Date Provider Diagnosis Jl Vail DO, [facility] [address] [place], [place] [phone] 09/24/2023 Jl Vail DO, [facility] [address] [place], [place] [id number] 10/15/2023 Jl Vail Encounter for genera l adult medical examination without abnormal findings Z00.00 ; Hypercholesterolemia E78.00 ; Mild persistent asthma without complication J45.30 and Morbid (severe) obesity due to excess calories E66.01 Jl Vail DO, [facility] [address] [place], [place] [phone] 02/17/2024 Jl Vail Hypercholesterolemia E78.00 and Mild [...] Coverage Start Date Coverage End Date [facility] [address] [facility] [address] [place] [phone] [id number] Omar Thorpe Self - patient is the [...]
--- OUTSIDE RECORDS SUMMARY | 2024-05-10 14:53 | XMS_ITS ---
Author Organization Jl Vail DO, FAC Address [address] [place], [place] [phone] Care Team Providers Care Surface Hydrologist Name Role Phone Jl Vail Primary Care Provider [phone] ALLERGIES Allergen (clinical drug ingredient) Drug/Non Drug [...] Date Provider Diagnosis Jl Ramírez Yared DO, [address] [id number] 10/15/2023 Jl Vail Encounter for sundeep l [...] General Examination GENERAL APPEARANCE: in no ac [place] distress, well developed, well nourished HEAD: normocephalic, [...] year Communication Needs PCM Communication Needs - [facility] aring Impairment?: Yes mild, [place] Vision [...]
--- OUTSIDE RECORDS SUMMARY | 2024-05-10 14:53 | XMS_ITS ---
Author Organization Jl Vail DO, FACP Address [address] [place], [place] [phone] Care Team Providers Care Energy Conservation Representative Name Role Phone Jl Vail Primary Care [...] Location Date Provider Diagnosis Jl Vail DO, [address] [id number] 02/17/2024 Jl Vail Hypercholesterolemia E78.00 and Mild [...] General Examination GENERAL APPEARANCE: in no ac [place] distress, well developed, well nourished HEAD: normocephalic, atrau matic HEART: no murmurs, regular rate and rhythm, S1, S2 normal LUNGS: clear to auscultatio n bilaterally ABDOMEN: normal, bowel sounds present, soft, nontender, nondistended SKIN: warm and dry EXTREMITIES: no edema PSYCH: alert, oriented, cog nitive function intact
--- OUTSIDE RECORDS SUMMARY | 2024-05-10 14:53 | XMS_ITS ---
Author Organization Jl Vail DO, FACP Address [address] [place] [phone] Care Team Providers Care Lvn Lpn Name Role Phone Jl Vail Primary Care Provider [phone] REASON FOR VISIT physical Encounters Encounter Location Date Provider Diagnosis Jl Vail DO, FACP [address] [place] [phone] 09/24/2023 Jl Vail PLAN OF TREATMENT No Information
--- OUTSIDE RECORDS SUMMARY | 2024-05-10 14:53 | XMS_ITS | Patient Health Record ---
Author Organization [facility] Address [address] [place] [address] Care Team Providers Care Route Manager Name Role Phone Yared (RETIRED) Jl RUSSELL [...] Code Notes Problem Diverticulitis (K57.92) Active confirmed [id number] Problem Diverticulitis of large intestine without perforation or abscess with bleeding (K57.33) Active confirmed 0551230 PLAN OF TREATMENT Future Test Test Name Order Date COLONOSCOPY 02/12/2018 Insurance Providers Payer Name Payer Address Payer Phone Subscriber Number Group Number Insured Name Patient Relationship to Insured Coverage Start Date Coverage End Date [facility] [address] [facility] [place], [place] [phone] [id number] ABBE WALTON Self - patient is the insured MEDICAL (GENERAL) HISTORY Medical History History ICD Code asthma hypertension elevated cholesterol obstructive sleep apnea hx of diverticulitis Surgical History Surgery Date(Month/Year) rotator cuff tear repair left 12/2017 left elbow as teenager
== END 2024-05-10 13:47 | disposition home or self-care (01) ==
LOC: HO.HMGCX 13:46
PROVIDERS: PCP Internal Medicine; Visit Provider Physician Assistant Medical
DX: E04.1 Nontoxic single thyroid nodule (principal)
CPT/HCPCS: 76536

== ENCOUNTER → 2024-05-10 13:47 | Outpatient (BNV) | payer OTHER, SELFPAY | PROVIDERS: PCP Internal Medicine; Visit Provider Radiology Diagnostic Radiology | DX: E04.1 Nontoxic single thyroid nodule (principal) | CPT/HCPCS: 76536 ==

== ENCOUNTER 2024-05-20 09:52 | Outpatient (AMB) | payer OTHER, SELFPAY ==
--- NOTE | 2024-05-20 10:08 | A.OFFPC_ITS ---
Vital Signs 05/20/24 10:09 Height 5 ft 9 in Weight 303 lb BMI 44.7 BP 142/78 H Blood Pressure Location Lt brachial Position Sitting Pulse 76 Pulse Source Pulse Oximeter Pulse Oximetry (%) 94 Oxygen Delivery Method Room Air Intake Visit Reasons: 2 week f/u Bed And Breakfast Operator Required: No Allergies No Known Allergies Allergy (Verified 05/20/24 10:32) Medication List - Last Reconciled 05/20/24 by Elizabeth Garza PA-C albuterol sulfate 90 mcg/actuation 1 inh inhalation QID PRN atorvastatin 10 mg PO DAILY fluticasone propion-salmeterol 500-50 mcg/dose (Wixela Inhub) 1 ea inhalation BID ipratropium-albuterol 0.5 mg-3 mg(2.5 mg base)/3 mL 3 mL inhalation Q6-8H PRN lisinopril 20 mg PO DAILY nebulizers (Altera Nebulizer System) As directed. Please provide accessories for nebulizer machine Tobacco use date assessed: 05/06/24 Dental Screening Dental Screen Date: 05/20/24 Did you have a dental visit in the last 12 months?: Yes Did you have a dental problem in the last 6 months where you did not have access to dental care?: No Was dental information given to patient?: Patient has dentist [facility] Medical History (Updated 05/20/24 @ 10:39 by Elizabeth Garza PA-C) Prediabetes Anemia Hypertension Thyroid nodule Hyperlipidemia Asthma Social History Household Members: Spouse Housing: House Do you presently have visiting nurse or other home services: No Alcohol intake: never Patient Tobacco Use Status: Never used Tobacco Tobacco use type: Cigarette e-Cigarette/Vaping Use: Never Used Second Hand Smoke Exposure: No service: No Current occupational status: employed Current occupational exposures/hazards: No Cognitive needs: No Hearing needs: No Vision needs: Yes Questionnaire PHQ-9 Over the last 2 weeks, how often have you been bothered by any of the following problems? 1. Little interest or pleasure in doing things: not at all 2. Feeling down, depressed, or hopeless: not at all 3. Trouble falling or staying asleep, or sleeping too much: not at all 4. Feeling tired or having little energy: not at all 5. Poor appetite or overeating: not at all 6. Feeling bad about yourself - or that you are a failure or have let yourself or your family down: not at all 7. Trouble concentrating on things, such as reading the newspaper or watching television: not at all 8. Moving or speaking so slowly that other people could have noticed. Or the opposite - being so fidgety or restless that you have been moving around a lot more than usual: not at all 9. Thoughts that you would be better off or of hurting yourself in some way: not at all Total score: 0 Depression Screening Interpretation: Negative Depression Screening Done: Yes 69793 - PHQ-9 Billing: Yes Source: Developed by Drs. Jl Spaulding, Valdez Houser and colleagues, with an educational amarilis from [employer]. Thrive Questionnaire Date Thrive assessed: 05/06/24 AUDIT C Alcohol Use Questionnaire (AUDIT-C) 1. How often do you have a drink containing alcohol?: Monthly or less 2. How many drinks containing alcohol do you have on a typical day when you are drinking?: 1 or 2 3. How often do you have six or more drinks on one occasion?: Never Total Score: 1 ANIL-7 AMB Questionnaire ANIL-7 Date ANIL - 7 assessed: 05/06/24 Source: Developed by Drs. Jl Spaulding, Valdez Houser and colleagues, with an educational amarilis from [employer]. Physical exam (Primary Care) Vital Signs: Last Vital Signs Pulse 76 05/20/24 10:09 BP 142/78 H 05/20/24 10:09 Pulse Ox 94 05/20/24 10:09 Oxygen Delivery Method Room Air 05/20/24 10:09 Care Plan Goal for BP management: 130/80 will increase the patient's lisinopril from 10 mg to 20 mg daily and patient to return in 1 month with blood pressure diary BMI result Body Mass Index 44.7 BMI Assessment/Plan discussion: High BMI High, discussed plan: lifestyle, weight reduction, dietary, physical activity and alcohol moderation Tobacco/Smoking Status: Tobacco use Status Tobacco use date assessed 05/06/24 05/20/24 10:08 Patient Tobacco Use Status Never used Tobacco 05/20/24 10:08 Tobacco use type Cigarette 05/20/24 10:11 e-Cigarette/Vaping Use Never Used 05/20/24 10:08 PHQ-9: PHQ-9 Score PHQ-9: Total score 0 05/20/24 10:11 Depression Screening Interpretation: Negative Thrive Assessment: Date of Thrive Assessment Date Thrive assessed 05/06/24 05/20/24 10:08 Coding Level of Care Code Est Pt Level 4 (66570) Complex EM visit Add On G2211 Diagnoses Hypertension I10 Thyroid nodule E04.1 Asthma J45.909 Anemia D64.9 Prediabetes R73.03 Additional Codes PHQ-9 - 24186 - PHQ-9 Billing: Yes ([id number]) Assessment & Plan Assessment & Plan (1) Hypertension: Code(s): I10 - Essential (primary) hypertension Category: Medical Plan: Patient's blood pressure noted to be elevated at 140 2/78. Blood pressure has consistently been elevated although has come down from the 190s over 90s since he has been started on lisinopril 10 mg 2 weeks ago. Will increase patient's lisinopril from 10 mg to 20 mg daily. Patient to return for follow-up visit blood pressure check in 1 month. Condition is chronic and stable continue to monitor. (2) Thyroid nodule: Code(s): E04.1 - Nontoxic single thyroid nodule Category: Medical Plan: Patient had incidental thyroid nodule seen on CT scan had an outpatient ultrasound on 05/10/2024 which is still pending at this time. Patient had normal thyroid level function tests. Condition is stable will continue to monitor. (3) Asthma: Code(s): J45.909 - Unspecified asthma, uncomplicated Category: Medical Plan: Patient is using his albuterol rescue inhaler as needed now. He is utilizing nebulizer as needed. He is using with Jayla twice a day as scheduled. He has a follow-up with pulmonology in May. He had a chest x-ray which revealed mild interstitial lung edema versus acute small airway disease otherwise no other acute processes. On exam lungs are clear to auscultation. No lower extremity edema or calf tenderness is noted. Condition is chronic and stable continue to monitor. (4) Anemia: Code(s): D64.9 - Anemia, unspecified Category: Medical Plan: Patient mild anemia with an H&H of 13.6/40.5 most likely related to blood draws from the emergency department will reassess at next visit. Patient denies any black or bloody stools or any evidence of blood loss. Condition is stable continue to monitor. (5) Prediabetes: Code(s): R73.03 - Prediabetes Category: Medical Plan: Patient A1c level 5.8 put him in a prediabetic state. Will continue to monitor. Plan Plan - Monitor and manage essential hypertension with a plan to increase amlodipine to 20 mg while continuing lisinopril. Reassess blood pressure control in one month. - Continue current asthma management plan with maintenance inhalers and reserve nebulizer use for need. - Follow up on thyroid ultrasound for nodule assessment and determine need for biopsy if warranted. - Continue monitoring anemia and explore potential causes if persistent. - Implement prediabetes lifestyle modifications including diet and exercise, with regular monitoring of A1c levels. - Schedule follow-up appointment in one month to reassess blood pressure and asthma status. Medications: Changed From lisinopril 10 mg PO DAILY 90 tabs 1RF hypertension To lisinopril 20 mg PO DAILY 90 tabs 1RF hypertension Patient Instructions: Patient Instructions - Continue taking current medications as prescribed. - Monitor blood pressure at home consistently and record readings. - Use asthma inhalers as instructed and avoid nebulizer unless necessary. - Anticipate follow-up thyroid ultrasound results and potential further evaluation. - Implement dietary and exercise modifications for prediabetes management. - Follow up in one month for reevaluation of blood pressure and asthma control. - Consult promptly if experiencing significant symptom changes or health concerns. Scribe Plan - Not visible on output: History of Present Illness The patient is a 53-year-old male presenting with follow-up for hypertension and asthma management. The patient reports a history of essential hypertension first noted to be elevated due to consumption of three cups of coffee. The patient has been monitoring blood pressure at home, noting fluctuations with readings generally in the range of 135s-150s/80s-90. Episodes of elevated readings necessitated rest and reevaluation, which resulted in decreased values. Current medication includes lisinopril and amlodipine, with recent adjustments from the initial 10 mg to a proposed increment to 20 mg, aimed at better regulation. Previous values were noted to be as high as 192/92. The patient also has a history of asthma, currently under control with maintenance medications including Wexela (fluticasone/salmeterol powder inhaler) used twice daily, with seldom use of rescue inhalers. Nebulizer use is rare due to unwanted side effects. A chest X-ray showed findings suggestive of lung adenoma or microvascular disease suggesting possible impacts from asthma. No recent exacerbations of asthma have been noted. A thyroid nodule was identified on CT scan while in ED ultrasound results are pending. Normal thyroid function test noted. A past lipid panel was normal. Recent blood tests indicated mild anemia, likely secondary to chronic illness or medical treatment, and the patient is noted to be prediabetic. Social History - Experiences stress related to work. - Discusses health occurrences and symptoms with spouse. - Lives with spouse who is supportive. Review of Systems - Cardiovascular: Reports fluctuations in blood pressure. - Pulmonary: Denies recent asthma exacerbations; minimal current inhaler usage. - Endocrine: Denies thyroid symptoms; awaiting further thyroid ultrasound interpretation. Physical Exam Appearance: Alert. Oriented X3. No acute distress. Head: Normal external exam. Normocephalic. Atraumatic. Eyes: Pupils are equal, round, and reactive to light. Extraocular movements intact. Conjunctiva and sclera normal. Eyelids normal. Ears: External auditory canal normal. Tympanic membranes normal. Throat: Pharynx normal. Uvula midline. Moist mucous membranes. Neck: Normal inspection. Neck supple. Full range of motion. No adenopathy. Thyr oid Nodule. No meningeal signs. Cardiovascular: Normal heart rate and rhythm. Heart sound normal. No murmurs noted. Pulses normal throughout. Respiratory: No respiratory distress. Painless inspiration. Breath sounds normal. No wheezes/rales/rhonchi noted. Chest nontender. No accessory muscle usage noted or decreased air movement noted. Back: Full range of motion noted. Skin: Skin warm and dry. Normal skin color. Normal skin turgor. No rashes/lesions/lacerations noted. Extremities: No lower extremity edema. Extremities exhibit normal range of motion. Extremities nontender. Neuro: Oriented X 3. No motor deficit. No sensory deficit. Reflexes normal. Results - Labs: PSA, thyroid function tests (TSH), vitamins, and cholesterol within normal limits. A1c indicates prediabetes. - Imaging: Chest X-ray suggestive of bronchial adenoma or microvascular disease; thyroid ultrasound pending. Plan - Monitor and manage essential hypertension with a plan to increase amlodipine to 20 mg while continuing lisinopril. Reassess blood pressure control in one month. - Continue current asthma management plan with maintenance inhalers and reserve nebulizer use for need. - Follow up on thyroid ultrasound for nodule assessment and determine need for biopsy if warranted. - Continue monitoring anemia and explore potential causes if persistent. - Implement prediabetes lifestyle modifications including diet and exercise, with regular monitoring of A1c levels. - Schedule follow-up appointment in one month to reassess blood pressure and asthma status. Patient was informed and verbally consented to the use of an ambient scribe for clinic note documentation during this visit. Discussion Notes During the visit, I discussed with the patient the management of essential hypertension, explaining the goal of maintaining blood pressure under 130/80 mmHg. We reviewed the importance of adherence to antihypertensive therapy and regular home monitoring of blood pressure. I explained the rationale for pote ntially increasing amlodipine to optimize control. Asthma management was also reviewed, with attention given to minimizing inhaler over-reliance and using the nebulizer as needed based on symptoms. We addressed the presence of a thyroid nodule, noting the pending ultrasound results and the next steps should a biopsy be required. The patient was informed of their prediabetes status and advised on lifestyle changes to mitigate progression. Return precautions for symptom changes or concerns were advised, along with the importance of consistent follow-up. Patient Instructions - Continue taking current medications as prescribed. - Monitor blood pressure at home consistently and record readings. - Use asthma inhalers as instructed and avoid nebulizer unless necessary. - Anticipate follow-up thyroid ultrasound results and potential further evaluation. - Implement dietary and exercise modifications for prediabetes management. - Follow up in one month for reevaluation of blood pressure and asthma control. - Consult promptly if experiencing significant symptom changes or health concerns.
[2024-05-20 10:09] VITALS: BP 142/78; PULSE 76; O2SAT 94; BMI 44.7
--- OUTSIDE RECORDS SUMMARY | 2024-05-20 10:44 | XMS_ITS ---
Author Organization Jl Vail DO, FACP Address [address] [place], [place] [id number] Care Team Providers Care Lapping Machine Set Up Operator Name Role Phone Jl Vail Primary Care Provider [phone] ALLERGIES Allergen (clinical drug ingredient) Drug/Non Drug [...] Location Date Provider Diagnosis Jl Vail DO, [address] [phone] 02/17/2024 Jl Vail Hypercholesterolemia E78.00 and Mild [...] General Examination GENERAL APPEARANCE: in no ac [place] distress, well developed, well nourished HEAD: normocephalic, atrau matic HEART: no murmurs, regular rate and rhythm, S1, S2 normal LUNGS: clear to auscultatio n bilaterally ABDOMEN: normal, bowel sounds present, soft, nontender, nondistended SKIN: warm and dry EXTREMITIES: no edema PSYCH: alert, oriented, cog nitive function intact
--- OUTSIDE RECORDS SUMMARY | 2024-05-20 10:45 | XMS_ITS ---
Author Organization Jl Vail DO, FAC Address [address] [place], [place] [id number] Care Team Providers Care Methods Specialist Name Role Phone Jl Vail Primary Care Provider [phone] ALLERGIES Allergen (clinical drug ingredient) Drug/Non Drug [...] Date Provider Diagnosis Jl Ramírez Yared DO, [address] [phone] 10/15/2023 Jl Vail Encounter for sundeep l [...] General Examination GENERAL APPEARANCE: in no ac [place] distress, well developed, well nourished HEAD: normocephalic, [...] year Communication Needs PCM Communication Needs - [facility] aring Impairment?: Yes mild, [place] Vision Impairment?: [...]
--- OUTSIDE RECORDS SUMMARY | 2024-05-20 10:45 | XMS_ITS | Patient Health Record ---
Author Organization Jl Vail DO, FAC Address [address] [place] [phone] Care Team Providers Care Game Artist Name Role Phone Jl Vail Primary Care Provider ALLERGIES Allergen (clinical drug ingredient) Drug/Non Drug Allergy documented on EMR Reaction Allergy Type Onset Date Status bupropion / naltrexone Contrave drowsiness Drug Allergy Active hydrochlorothiazide Hydrochlorothiazide shakes D rug Allergy Active RESULTS Component Value Reference Range Notes Complete Blood Count Auto Di ff Reviewed date:02/16/2024 10:32:14 AM Interpretation:Abnormal Performing Lab:[facility], [address] [place] [phone] Notes/Report: White Blood Count 5.1 4.8-10.8 X10*3/uL [...] NRBC Abs Auto 0.000 0.0-0.012 X10*3/uL Comprehensive [place]. Panel Fa st Reviewed date:02/16/2024 11:28:37 AM Interpretation:Abnormal Performing Lab:[facility], [address] [place] [phone] Notes/Report: Sodium 139 135-145 mmol/L Potassium 4.4 [...] Panel Reviewed date:02/16/2024 11:28:37 AM Interpretation:Normal Performing Lab:[facility], [address] [place] [phone] Notes/Report: Triglycerides 100 <150 mg/dL Desirable Triglyceride: [...] (Free>4and<10) Reviewed date:02/16/2024 11:28:37 AM Interpretation:Normal Performing Lab:[facility], [address] [place] [phone] Notes/Report: PSA,Total (Free>4and<10) 0.66 0.00-4.00 ng/mL A [...] Total Reviewed date:02/16/2024 11:28:37 AM Interpretation:Normal Performing Lab:[facility], [address] [place] [phone] Notes/Report: Vitamin D 25-OH Total 38.7 >30 [...] Hormone Reviewed date:02/16/2024 11:28:37 AM Interpretation:Normal Performing Lab:[facility], [address] [place] [phone] Notes/Report: Thyroid Stimulating Hormone 1.02 0.32-4.0 uIU/ mL TSH 3rd Generation ([facility]) Hemoglobin A1c Reviewed date:02/16/2024 10:32:14 AM Interpretation:Normal Performing Lab:[facility], [address] [place] [phone] Notes/Report: Hemoglobin A1c % 5.6 <6.0 % [...] average glucose, using the formula of the [id number] Average Glucose study (ADAG), Diabetes Care, Vol.31,#8, [...] Problem Vitamin D deficiency (E55.9) Active confirmed 74113435 Problem Morbid (severe) obesity due to excess calories (E66.01) Active confirmed [id number] Problem Anxiety (F41.9) Active confirmed 883200 02 Problem Mild persistent asth ma without complication (J45.30) Active confirmed 786609113 Problem Eczema, unspecified type (L30.9) Active confirmed 58738561 Problem Hypercholesterolemia (E78.00) Active confirmed 70879920 Problem Diverticulitis (K57.92) Active confirmed 696108481 Problem Tear of left rotator cuff, unspecified tear extent (M75.102) Active confirmed 4038833 VITAL SIGNS Blood pressure diastolic 82 mm Hg 02/17/2024 Height 67 in 02/17/2024 Blood pressure systolic 140 mm Hg 02/17/2024 Weight 306 lbs 02/17/2024 BMI 47.92 kg/m2 02/17/2024 Encounters Encounter Location Date Provider Diagnosis Jl Vail DO, [facility] [address] [place], [place] [phone] 09/24/2023 Jl Vail DO, [facility] [address] [place], [place] [phone] 10/15/2023 Jl Vail Encounter for genera l adult medical examination without abnormal findings Z00.00 ; Hypercholesterolemia E78.00 ; Mild persistent asthma without complication J45.30 and Morbid (severe) obesity due to excess calories E66.01 Jl Vail DO, [facility] [address] [place], [place] [phone] 02/17/2024 Jl Vail Hypercholesterolemia E78.00 and Mild [...] Insured Coverage Start Date Coverage End Date [facility] [address] [facility] [address] [place] [address] [id number] Omar Thorpe Self - patient is the [...]
--- OUTSIDE RECORDS SUMMARY | 2024-05-20 10:45 | XMS_ITS ---
Author Organization Jl Vail DO, FACP Address [address] [place] [phone] Care Team Providers Care Founder And President Name Role Phone Jl Vail Primary Care Provider REASON FOR VISIT physical Encounters Encounter Location Date Provider Diagnosis Jl Vail DO, FACP [address] [place] [phone] 09/24/2023 Jl Vail PLAN OF TREATMENT No Information
--- OUTSIDE RECORDS SUMMARY | 2024-05-20 10:45 | XMS_ITS | Patient Health Record ---
Author Organization [facility] Address [address] [place] [address] Care Team Providers Care Chainstitch Felled Seam Operator Name Role Phone Yared (RETIRED) Jl RUSSELL [...] Code Notes Problem Diverticulitis (K57.92) Active confirmed 063066359 Problem Diverticulitis of large intestine without perforation or abscess with bleeding (K57.33) Active confirmed 7025930 PLAN OF TREATMENT Future Test Test Name Order Date COLONOSCOPY 02/12/2018 Insurance Providers Payer Name Payer Address Payer Phone Subscriber Number Group Number Insured Name Patient Relationship to Insured Coverage Start Date Coverage End Date [facility] [address] [facility] [place], [place] [phone] [id number] ABBE WALTON Self - patient is the insured MEDICAL (GENERAL) HISTORY Medical History History ICD Code asthma hypertension elevated cholesterol obstructive sleep apnea hx of diverticulitis Surgical History Surgery Date(Month/Year) rotator cuff tear repair left 12/2017 left elbow as teenager
== END 2024-05-20 10:31 | disposition home or self-care (01) ==
PROVIDERS: PCP Internal Medicine; Visit Provider Physician Assistant Medical
DX: I10 Essential (primary) hypertension (principal); E04.1 Nontoxic single thyroid nodule; J45.909 Unspecified asthma, uncomplicated; D64.9 Anemia, unspecified; R73.03 Prediabetes

== ENCOUNTER → 2024-05-20 09:52 | Outpatient (BNVA) | payer OTHER, SELFPAY | PROVIDERS: PCP Internal Medicine; Visit Provider Physician Assistant Medical | DX: I10 Essential (primary) hypertension (principal); E04.1 Nontoxic single thyroid nodule; J45.909 Unspecified asthma, uncomplicated; D64.9 Anemia, unspecified; R73.03 Prediabetes; Z79.899 Other long term (current) drug therapy | CPT/HCPCS: 96127 ==

== ENCOUNTER 2024-05-31 15:12 | Outpatient (AMB) | payer OTHER, SELFPAY ==
[2024-05-31 15:26] VITALS: BP 126/84; PULSE 65; O2SAT 98; BMI 45.5
--- NOTE | 2024-05-31 15:26 | MHC.OFFVIS ---
Vital Signs 05/31/24 15:26 Height 5 ft 9 in Weight 307 lb 15.772 oz BMI 45.5 BP 126/84 Blood Pressure Location Lt brachial Position Sitting Pulse 65 Pulse Source Pulse Oximeter Pulse Oximetry (%) 98 Oxygen Delivery Method Room Air Intake Visit Reasons: Nontoxic single thyroid nodule Intake Note: Patient present today for nontoxic single thyroid nodule. 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 Please provide accessories for nebulizer machine HPI Comments Details: 53-year-old male here today for initial evaluation of solitary right-sided thyroid nodule. Here today with [facility]. CT chest 04/24/2024 showed a posteriorly projecting 2.4 cm right thyroid nodule. Subsequently ultrasound thyroid 05/10/2024 showed a right lower pole 4 X 2.6 X 2.1 cm solid, hypoechoic ill-defined, with the extrathyroidal extension, taller than wide TR 5 category nodule, per NATY guidelines this would be a high suspicion nodule with greater than 50% chance of malignancy. Patient currently denies heat or cold intolerance, diarrhea or constipation, hair loss, palpitation, anxiety, gained 7 lbs in the last 2 months, mood changes, low energy, changes in appearance of eyes or vision changes, tremors, increased diaphoresis or dry skin. ? Patient denies any difficulty swallowing, pain on swallowing or voice changes or difficulty breathing. Patient denies any history of childhood neck radiation. Denies having ever used lithium, amiodarone or biotin supplements. Patient denies any family history of thyroid cancer. Mother is on thyroid medication. 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 COMPARISON: Correlation is made with a chest CT dated 04/24/2024. FINDINGS: SIZE: The right thyroid lobe measures 4.8 x 3.0 x 2.1 cm. The left thyroid lobe measures 5.5 x 1.7 x 1.5 cm. The isthmus measures 2 mm. FLOW: Flow to the gland is normal. ECHOGENICITY: The echotexture of the gland is homogeneous. NODULES: There is a solitary nodule at the lower pole of the right thyroid lobe with imaging characteristics as follows: Nodule #: 1 Location: Lower pole right thyroid lobe measuring 4.0 x 2.6 x 2.1 cm. Shape: Ovoid, taller than wide. Margins: Somewhat ill-defined, with extrathyroidal extension. Echotexture: Hypoechoic Morphology: Solid Calcifications: None TIRADS: TR5: Highly suspicious. US/US thyroid IMPRESSION: Suspicious 4.0 x 2.6 x 2.1 cm nodule at the lower pole the right thyroid lobe. Ultrasound-guided fine-needle aspiration is recommended. CT chest without contrast 04/24/24 Comparison: CR/SR - XR CHEST 2V - 04/19/24 11:51 EST CR/SR - RIBS RIGHT PA CHEST [id number] - 09/08/19 08:52 EDT Findings: No consolidation, edema, pleural effusion or pneumothorax. Couple 3 mm perifissural nodule along the minor and right interlobar fissure not requiring routine follow-up if patient felt to be of low risk. Otherwise optional CT follow-up in 12 months per Fleischner society guidelines. No dominant nodule. Minimal patchy air trapping which may relate to mild obstructive or small airway disease changes. Airways otherwise unremarkable. Thoracic inlet intact. Posterior exophytic smoothly marginated right thyroid nodule at approximately 14 x 24 mm for which follow-up nonemergent thyroid ultrasound suggested. Heart size normal. No pericardial effusion. No coronary artery calcification. Normal caliber thoracic aorta . Pulmonary trunk upper normal at 2.9 cm. No enlarged mediastinal or hilar lymph nodes. Esophagus within normal limits. Minimal hiatal hernia. No acute process evident upper abdomen. Bones intact. Soft tissues unremarkable. IMPRESSION: No acute cardiopulmonary process. Minimal air trapping suggesting possible mild small airway disease either obstructive or reactive. Posterior projecting 24 mm right thyroid nodule for which follow-up nonemergent thyroid ultrasound suggested. This document has been electronically signed by: Cuauhtemoc Perkins MD on 04/24/2024 11:08:00 [facility] Medical History (Updated 05/20/24 @ 10:39 by Elizabeth Garza PA-C) Prediabetes Anemia Hypertension Thyroid nodule Hyperlipidemia Asthma Social History Household Members: Spouse Housing: House Do you presently have visiting nurse or other home services: No Alcohol intake: never Patient Tobacco Use Status: Never used Tobacco Tobacco use type: Cigarette e-Cigarette/Vaping Use: Never Used Second Hand Smoke Exposure: No service: No Current occupational status: employed Current occupational exposures/hazards: No Cognitive needs: No Hearing needs: No Vision needs: Yes Physical Exam Vital Signs: Last Vital Signs Pulse 65 05/31/24 15:26 BP 126/84 05/31/24 15:26 Pulse Ox 98 05/31/24 15:26 Oxygen Delivery Method Room Air 05/31/24 15:26 BMI result Body Mass Index 45.5 Assessment & Plan Assessment & Plan (1) Thyroid nodule: Code(s): E04.1 - Nontoxic single thyroid nodule Category: Medical Plan: 53-year-old male with no family history of thyroid cancer, with no personal history of head or neck radiation who is coming in today for initial evaluation of right-sided thyroid nodule. CT chest 04/24/2024 showed a posteriorly projecting 2.4 cm right thyroid nodule. Subsequently ultrasound thyroid 05/10/2024 showed a right lower pole 4 X 2.6 X 2.1 cm solid, hypoechoic ill-defined, with the extrathyroidal extension, taller than wide TR 5 category nodule, per NATY guidelines this would be a high suspicion nodule with greater than 50% chance of malignancy. Normal thyroid function from May 2024. No compressive symptoms. I explained that it is common to have thyroid nodules. About 95% of the time these nodules are benign. However if the nodule is > 1 cm in size or suspicious on ultrasound then a fine need aspiration biopsy is recommended. We discussed that a FNAB involves 4-5 passes with a small gauge needle and material obtained is sent off for cytology.If the cytopathology is benign then the nodule will be followed annually with repeat ultrasounds. However if it is suspicious or malignant, we will need to discuss further management. Indeterminate cytology can be further investigated with repeat FNA, genetic testing or empiric lobectomy. Malignant cytology is managed with either lobectomy or total thyroidectomy. We discussed briefly that thyroid cancer is, in most patients, an indolent disease that does not affect mortality. We will arrange for FNA of the right midpole 4 cm nodule at next available opening and patient will follow up with me in clinic thereafter for results and further decision making. During the visit, I reviewed the findings of the thyroid ultrasound with the patient and explained the significance of the nodule's characteristics. We discussed the necessity for biopsy, the procedural details, and potential results, including benign and malignant possibilities. The procedure risks, which are minimal, include bleeding, infection, and rare damage to nearby structures, and I assured the patient these are mitigated by ultrasound guidance. I provided reassurance regarding the highly favorable prognosis of thyroid cancers if treated. We reviewed upcoming appointments and the potential for follow-up genetic testing if indeterminate results arise. I encouraged portal communication for any arising queries or concerns. Plan: -scheduled for FNA of the right midpole 4 cm nodule and a follow up 2 weeks after to discuss results Plan I spent 45 minutes in reviewing the record, seeing the patient and documenting in the medical record. Orders: Orders US biopsy thyroid Today E04.1 - Nontoxic single thyroid nodule Coding Level of Care Code New Pt Level 4 (04970) Diagnoses Thyroid nodule E04.1 Time Spent (min) 45
--- OUTSIDE RECORDS SUMMARY | 2024-05-31 18:04 | XMS_ITS | Patient Health Record ---
Author Organization [facility] Address [address] [place] [address] Care Team Providers Care Migratory Game Bird Biologist Name Role Phone Yared (RETIRED) Jl RUSSELL [...] Status Risk SNOMED Code Notes Problem Diverticulitis of large intestine without perforation or abscess with bleeding (K57.33) Active confirmed 3853336 Problem Diverticulitis (K57.92) Active confirmed 071992886 PLAN OF TREATMENT Future Test Test Name Order Date COLONOSCOPY 02/12/2018 Insurance Providers Payer Name Payer Address Payer Phone Subscriber Number Group Number Insured Name Patient Relationship to Insured Coverage Start Date Coverage End Date [facility] [address] [facility] [place], [place] [phone] [id number] ABBE WALTON Self - patient is the insured MEDICAL (GENERAL) HISTORY Medical History History ICD Code asthma hypertension elevated cholesterol obstructive sleep apnea hx of diverticulitis Surgical History Surgery Date(Month/Year) rotator cuff tear repair left 12/2017 left elbow as teenager
== END 2024-05-31 16:03 | disposition home or self-care (01) ==
PROVIDERS: PCP Internal Medicine; Visit Provider Student in an Organized Health Care Education/Training Program
DX: E04.1 Nontoxic single thyroid nodule (principal)
CPT/HCPCS: 99204

== ENCOUNTER 2024-06-16 08:48 | Outpatient (REF) | payer BC, SELFPAY ==
--- NOTE | 2024-06-16 09:20 | PM.PROC ---
Brief Operative Note Date of procedure: 06/16/24 Pre-op diagnosis: right mid/lower 4 cm thyroid nodule FNA biopsy Post-op diagnosis: same Procedure: THYROID FINE NEEDLE ASPIRATION PROCEDURE NOTE ? PROCEDURE PERFORMED: Ultrasound-guided FNA of thyroid nodule ? OPERATORS: Dr. Moira Connors ? INDICATION: right mid/lower 4 cm thyroid nodule FNA biopsy ; FNA performed to assess for malignancy ? DESCRIPTION OF PROCEDURE: The indications for FNA (to assess for malignancy) were reviewed with the patient in detail. Potential complications (e.g., bleeding, infection, damage to local structures, absence of clear diagnosis after FNA) were reviewed. Alternatives to FNA including conservative observation or surgery were described. The patient understood and agreed to proceed. This was documented by the signing of the written informed consent form. A time-out was performed to confirm the patient's identity and the site of planned FNA. The nodule of interest was identified using ultrasound (14 MHz linear array probe). The site of FNA was then draped in the usual fashion and carefully cleaned and prepared using alcohol swabs. The skin at the previously-identified site of needle insertion was iced and sprayed with numbing spray. Under ultrasound guidance, 4__ passes were performed using a 1.5-inch, 25-gauge needle, and sample was obtained via capillary action. The needle tip was clearly visualized to be within the nodule at the time of sampling for _4_ of 4__ passes [Insert image recorded as part of the procedure] The patient tolerated the procedure well. There were no immediate complications. A small adhesive bandage was applied, and the patient was advised to take acetaminophen (rather than NSAIDs) for any discomfort and to report any signs of inflammation/infection or marked swelling. IMPRESSION: Technically successful ultrasound-guided fine needle aspiration of right mid/lower 4 cm thyroid nodule . PLAN: The patient was advised that I will provide follow-up regarding the cytology result and any subsequent plans. Moira Connors MD Endocrinology Attending Condition: stable Disposition: same day
[2024-07-02 10:43] LABS: Class Derm. pterony 2; Class Dermatophagoides farinae 1; D001 IgE D pteronyssinus 0.81; D002 - IgE D farinae 0.69
[2024-07-02 10:44] LABS: Class Cat Dander 1; E001 - IgE Cat Dander 0.57
[2024-07-02 10:45] LABS: Class Cockroach 0; Class Dog Dander 0; Class Mouse Urine Protein 0; Class White Mulberry 0; E005 - IgE Dog Dander <0.10; E072-IgE Mouse Urine <0.10; I006-IgE Cockroach, German <0.10; T070 - IgE White Mulberry <0.10
[2024-07-02 10:46] LABS: Class Birch 0; Class Cottonwood 0; Class Maple Box Elder 0; Class Mountain Cedar 0; Class Sycamore 0; Class Walnut Tree 0; Class White Ash 0; T001 IgE Maple/Box Elder <0.10; T003 IgE Common Silver Birch <0.10; T006 - IgE Cedar, Mountain <0.10; T010 - IgE Walnut <0.10; T011 - IgE Maple Leaf Sycamore <0.10; T014 - IgE Cottonwood <0.10; T015 - IgE Ash, White <0.10
[2024-07-02 10:47] LABS: Class Penicillium crysogenum 0; M001 IgE Penicillium chrysogen <0.10
[2024-07-02 10:48] LABS: Class Alternaria alternata 0; Class Aspergillus fumigatus 0; Class Cladosporium herbarum 0; Class Elm 0; Class Oak 0; Class Timothy Grass 0; G006 - IgE Timothy Grass <0.10; M002 - IgE Cladosporium herbar <0.10; M003 - IgE Aspergillus fumigat <0.10; M006 - IgE Alternaria alternat <0.10; T007 - IgE Oak, White <0.10; T008 IgE Elm, American <0.10
[2024-07-02 10:49] LABS: Class Bermuda Grass 0; G002 IgE Bermuda Grass <0.10
== END 2024-06-16 08:49 | disposition home or self-care (01) ==
LOC: HO.US 08:48
PROVIDERS: Internal Medicine; PCP Internal Medicine; Visit Provider Student in an Organized Health Care Education/Training Program
DX: E04.1 Nontoxic single thyroid nodule (principal); J45.909 Unspecified asthma, uncomplicated; Z91.09 Other allergy status, other than to drugs and biological substances
CPT/HCPCS: 10005; 36415; 82785; 86003; 88173; 88305

== ENCOUNTER → 2024-06-16 08:48 | Outpatient (BNV) | payer BC, SELFPAY | PROVIDERS: PCP Internal Medicine; Visit Provider Student in an Organized Health Care Education/Training Program | DX: E04.1 Nontoxic single thyroid nodule (principal) | CPT/HCPCS: 10005 ==

== ENCOUNTER 2024-06-16 14:07 | Outpatient (AMB) | payer OTHER, SELFPAY ==
[2024-06-16 14:18] VITALS: BP 130/72; PULSE 94; O2SAT 95; BMI 44.8
--- NOTE | 2024-06-16 14:18 | A.OFFVIS_ITS ---
Vital Signs 06/16/24 14:18 Height 5 ft 9 in Weight 303 lb 2.17 oz BMI 44.8 BP 130/72 Blood Pressure Location Lt brachial Position Sitting Pulse 94 Pulse Source Pulse Oximeter Pulse Oximetry (%) 95 Oxygen Delivery Method Room Air Intake Visit Reasons: asthma Intake Note: pt is here as a new patient , wakes up in am he coughs up some phelgm in am after shower better, had er visit unable to breath, dx pneumonia. 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 Please provide accessories for nebulizer machine Do you need a note to return to daycare/school/sports/work: No HPI HPI asthma: Details: 53 years old gentleman is being seen for the 1st time for history of bronchial asthma and gross obesity. He has history of attacks of bronchial asthma since age 14-15. He would get attacks of tightness of the chest especially on running or walking up hill, with some wheezing. This continue to get worse, over the years, symptoms were worse especially during fall and winter months. Over the years he has used in the inhaler such as Advair and now Wixela, and also albuterol only p.r.n.. In March of this year he was hospitalized for 3 days with acute exacerbation of asthma and he was told that he had pneumonia. He was treated with course of IV antibiotics, steroids and then discharged home on Wixela 500-51 inhalation b.i.d.. He also has a nebulizer at home but hardly needs to use. He does get frequent bouts of cough with tightness of the chest. He does get short of breath when he walks up hill or climbs stairs. HE DOES NOT SMOKE CIGARETTES. SMOKES MARIJUANA BUT ONLY ONCE IN A WHILE,. 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 HE HAS NOT BEEN TESTED FOR ANY ALLERGIES. HE HAS HAD NO SPECIFIC PULMONARY FUNCTION TEST. HE HAS VERY LITTLE NASAL SYMPTOMS. HE HAS BEEN GROSSLY OVERWEIGHT. AT 1 TIME HE RESOLVED TO LOSE WEIGHT AND HE DID LOSE ABOUT 80 LB WITH STRICT DIETING AND WALKING, BUT THEN HE REGAINED ALL THAT WEIGHT BECAUSE HE STOPPED DOING THE EXERCISE. MANY YEARS AGO HAD A POLYSOMNOGRAM IN THE SLEEP LAB AND WAS TOLD THAT HE DOES NOT SLEEP APNEA. HE DOES GIVE HISTORY OF SNORING AT NIGHT TOLD BY HIS . HE SAY IS THAT HE SLEEPS OKAY AND, WAKES UP ONLY ONCE OR TWICE DURING THE NIGHT. ON WAKING UP IN THE MORNING HE DOES FEEL TIRED. HE DOES KEEP HIMSELF ACTIVE IN WORK SO HE DOES NEED DENIES HAVING EXCESSIVE DAYTIME SLEEPINESS. [facility] Medical History (Updated 06/16/24 @ 15:24 by Jeremy Bauer MD) FATMATA (obstructive sleep apnea) Snoring Obesity (BMI 35.0-39.9 without comorbidity) Prediabetes Anemia Hypertension Thyroid nodule Hyperlipidemia Asthma Social History Household Members: Spouse Housing: House Do you presently have visiting nurse or other home services: No Alcohol intake: never Patient Tobacco Use Status: Never used Tobacco Tobacco use type: Cigarette e-Cigarette/Vaping Use: Never Used Second Hand Smoke Exposure: No service: No Current occupational status: employed Current occupational exposures/hazards: No Cognitive needs: No Hearing needs: No Vision needs: Yes Review of Systems Const All systems reviewed & are unremarkable except as noted in HPI and below Reports weight gain Eyes Reports no additional complaints ENT Reports other (THYROID NODULE HAD A NEEDLE BIOPSY) Card Denies chest pain, Denies irregular heart rhythm and Denies leg edema Resp Reports as per HPI GI Reports no additional complaints Reports no additional complaints Musc Reports no additional complaints Skin/Breast Reports system reviewed and no additional complaints, except as documented Neuro Reports no additional complaints Psych Reports no additional complaints Endo Reports no additional complaints Aller/Immun Reports no additional complaints Physical Exam Vital Signs: Last Vital Signs Pulse 94 06/16/24 14:18 BP 130/72 06/16/24 14:18 Pulse Ox 95 06/16/24 14:18 Oxygen Delivery Method Room Air 06/16/24 14:18 BMI result Body Mass Index 44.8 HE HAS GROSSLY OVERWEIGHT WITH ROUND FACE AND SHORT AND OBESE NECK Const General: comfortable, no acute distress, alert and awake Orientation/consciousness: patient oriented x3 HEENT Head: Yes normal to inspection General nose exam: No nasal polyps present and No nasal discharge present Face and sinus: Yes sinuses nontender Mouth: oropharynx abnormals (OROPHARYNX IS NARROW AND CROWDED, MALLAMPATI SCALE 4) Throat: Yes posterior oropharynx normal Eyes General: appearance normal, both eyes and all related structures Neck Neck: Yes normal visual inspection, Yes no lymphadenopathy, Yes trachea midline and Yes no JVD Thyroid: Thyroid normal Chest Chest palpation & inspection: normal inspection of the chest, normal palpation of entire chest wall and no tenderness Resp Other: PERCUSSION NOTE IS NOT PERCEPTIBLE BECAUSE OF HIS MARKED OBESITY BREATH SOUNDS ARE SLIGHTLY DISTANT ON BOTH SIDES. I DID NOT HEAR ANY WHEEZES OR CREPITATIONS Cardio Palpation: normal PMI Rate: regular rate Rhythm: regular rhythm Heart sounds: no gallops and no murmurs Peripheral pulses: Peripheral pulses 2+ throughout GI Palpation (GI): Soft to palpation, nontender, No hepatosplenomegaly present and no masses Auscultation: normal bowel sounds Back/Spine/Pelvis Thoracic/Lumbar Spine: thoracic and lumbar spine normal to inspection Skin General skin exam: no rashes or lesions noted Neuro General: patient oriented x3 and no focal motor deficits Cranial nerves: Yes CN's II-XII intact bilaterally Extrem General: Yes normal to inspection, Yes no clubbing, cyanosis or edema and Yes no calf tenderness Psych Appearance: grossly normal and well kempt Speech and movement: Normal speech and movement present Results Reviewed Results Reviewed: 04/24/24 ct SCAN OF CHEST IMPRESSION: No acute cardiopulmonary process. Minimal air trapping suggesting possible mild small airway disease either obstructive or reactive. Posterior projecting 24 mm right thyroid nodule for which follow-up nonemergent thyroid ultrasound suggested. This document has been electronically signed by: Cuauhtemoc Perkins MD on 04/24/2024 11:08:00 Assessment & Plan Assessment & Plan (1) Snoring: Comment: HE IS MORBIDLY OBESE, DOES HAVE HISTORY OF SNORING AT NIGHT. Code(s): R06.83 - Snoring Category: Medical Plan: HE WILL BE GETTING HOME-BASED SLEEP STUDY (2) Asthma: Comment: LONGSTANDING HISTORY OF ALLERGIC BRONCHIAL ASTHMA. Code(s): J45.909 - Unspecified asthma, uncomplicated Category: Medical Plan: HE WOULD NEED A BASELINE PULMONARY FUNCTION TEST. SCREENING FOR TRIGGERS AND RAST TEST IS ORDERED. EOSINOPHIL COUNT AND IGE LEVEL ARE ORDERED. PATIENT IS SCHEDULED TO HAVE COMPLETE PULMONARY FUNCTION TEST. TX CONTINUE WIXELA 500-51 INHALATION B.I.D. AND WHEN TIME TO REFILL I WOULD REDUCE IT TO 250-51 INHALATION B.I.D. ALBUTEROL HFA 2 PUFFS Q 6 HOURS P.R.N . (3) Obesity (BMI 35.0-39.9 without comorbidity): Comment: PATIENT DOES PRESENT WITH MORBID OBESITY WHICH HAS BEEN GOING ON FOR MANY YEARS. IT PREDISPOSES HIM TO HAVING OBSTRUCTIVE SLEEP APNEA, Code(s): E66.9 - Obesity, unspecified Category: Medical Plan: TALKED TO HIM AND ADVISED THAT HE NEEDS TO LOOK INTO CONSULTING DIETITIAN OR GOING TO A WEIGHT MANAGEMENT PROGRAM. OR HE CAN START ON HIS OWN WITH DIET LOW IN CARBOHYDRATES AND RESTRICTED CALORIES. HE ALSO NEEDS TO START WALKING, JOGGING OR DOING SOME KIND OF EXERCISE ON A DAILY BASIS (4) FATMATA (obstructive sleep apnea): Comment: HIS BODY FEATURES ARE TYPICAL OF OBSTRUCTIVE SLEEP APNEA, WHICH IS HIGHLY. SUSPECTED IN HIS CASE Code(s): G47.33 - Obstructive sleep apnea (adult) (pediatric) Category: Medical Plan: DISCUSSED WITH HIM IN GREAT LENGTH HOME-BASED SLEEP STUDY IS ORDERED Orders: Orders Immunoglobulin E Today J45.909 - Unspecified asthma, uncomplicated, R05.9 - Cough, unspecified Complete Blood Count Auto Diff Today J45.909 - Unspecified asthma, unco mplicated, R05.9 - Cough, unspecified PFT pulmonary function test Today J45.909 - Unspecified asthma, uncomplicated, R05.9 - Cough, unspecified RT home sleep study Today E66.9 - Obesity, unspecified Coding Level of Care Code New Pt Level 4 (57058) Diagnoses Snoring R06.83 Asthma J45.909 Obesity (BMI 35.0-39.9 without comorbidity) E66.9 FATMATA (obstructive sleep apnea) G47.33
== END 2024-06-16 14:54 | disposition home or self-care (01) ==
LOC: HO.HPS 14:07
PROVIDERS: PCP Internal Medicine; Visit Provider Internal Medicine
DX: R06.83 Snoring (principal); J45.909 Unspecified asthma, uncomplicated; E66.9 Obesity, unspecified; G47.33 Obstructive sleep apnea (adult) (pediatric)
CPT/HCPCS: 99204

== ENCOUNTER 2024-06-24 13:18 | Outpatient (AMB) | payer BC, SELFPAY ==
--- NOTE | 2024-06-24 13:23 | MHC.PC.OV ---
Vital Signs 06/24/24 13:24 Height 5 ft 9 in Weight 297 lb BMI 43.9 BP 138/86 Blood Pressure Location Lt brachial Position Sitting Pulse 70 Pulse Source Pulse Oximeter Temp 97.5 F Temp Source Temporal Artery Scan Pulse Oximetry (%) 96 Oxygen Delivery Method Room Air Intake Visit Reasons: 1mth f/u BP Stator Connector Required: No Accompanied by: Self / Same As Patient Allergies No Known Allergies Allergy (Verified 06/24/24 13:44) Medication List - Last Reconciled 06/24/24 by Elizabeth Garza PA-C albuterol sulfate 90 mcg/actuation 1 inh inhalation QID PRN atorvastatin 10 mg PO DAILY fluticasone propion-salmeterol 500-50 mcg/dose (Wixela Inhub) 1 ea inhalation BID ipratropium-albuterol 0.5 mg-3 mg(2.5 mg base)/3 mL 3 mL inhalation Q6-8H PRN lisinopril 20 mg PO DAILY nebulizers (Altera Nebulizer System) As directed. Please provide accessories for nebulizer machine Tobacco use date assessed: 06/24/24 Dental Screening Dental Screen Date: 06/24/24 [facility] Medical History FATMATA (obstructive sleep apnea) Snoring Obesity (BMI 35.0-39.9 without comorbidity) Prediabetes Anemia Hypertension Thyroid nodule Hyperlipidemia Asthma Social History Household Members: Spouse Housing: House Do you presently have visiting nurse or other home services: No Alcohol intake: never Patient Tobacco Use Status: Never used Tobacco Tobacco use type: Cigarette e-Cigarette/Vaping Use: Never Used Second Hand Smoke Exposure: No service: No Current occupational status: employed Current occupational exposures/hazards: No Cognitive needs: No Hearing needs: No Vision needs: Yes Questionnaire PHQ-9 Over the last 2 weeks, how often have you been bothered by any of the following problems? 1. Little interest or pleasure in doing things: not at all 2. Feeling down, depressed, or hopeless: not at all 3. Trouble falling or staying asleep, or sleeping too much: not at all 4. Feeling tired or having little energy: not at all 5. Poor appetite or overeating: not at all 6. Feeling bad about yourself - or that you are a failure or have let yourself or your family down: not at all 7. Trouble concentrating on things, such as reading the newspaper or watching television: not at all 8. Moving or speaking so slowly that other people could have noticed. Or the opposite - being so fidgety or restless that you have been moving around a lot more than usual: not at all 9. Thoughts that you would be better off or of hurting yourself in some way: not at all Total score: 0 Depression Screening Interpretation: Negative Depression Screening Done: Yes 24060 - PHQ-9 Billing: Yes Source: Developed by Drs. Jl Spaulding, Neyda Buitrago, Valdez Razo and colleagues, with an educational amarilis from [employer]. Thrive Questionnaire Date Thrive assessed: 06/24/24 I am a: Patient What is your living situation today?: I have a steady place to live Within the past 12 months, did the food you bought not last and you didn't have the money to get more?: Never true Within the past 12 months, did you worry whether your food would run out before you got money to buy more?: Never true Do you have trouble paying for medicines?: No Do you have trouble getting transportation to medical appointments?: No Do you have trouble paying your heating and electricity bill?: No Do you have trouble taking care of your child, family member or friend?: No Do you have trouble with day-to-day activities such as bathing, preparing meals, shopping, managing finances, etc.?: No Are you currently unemployed and looking for a job?: No Are you interested in more education?: No Please select the resources that you would like help with: None Currently or been in a relationship where the following occur: No concerns reported THRIVE Score: 0 AUDIT C Alcohol Use Questionnaire (AUDIT-C) 1. How often do you have a drink containing alcohol?: Monthly or less 2. How many drinks containing alcohol do you have on a typical day when you are drinking?: 1 or 2 3. How often do you have six or more drinks on one occasion?: Never Total Score: 1 Score Reviewed/Action Taken: No ANIL-7 AMB Questionnaire ANIL-7 Date ANIL - 7 assessed: 06/24/24 Feeling nervous, anxious, or on edge: 0 = Not at all Not being able to stop or control worryin = Not at all Worrying too much about different things: 0 = Not at all Trouble relaxin = Not at all Being so restless that it is hard to sit still: 0 = Not at all Becoming easily annoyed or irritable: 0 = Not at all Feeling afraid as if something awful might happen: 0 = Not at all Total ANIL-7 score (0-4 normal; 5-9 mild; 10-14 moderate; 15-21 severe): 0 Source: Developed by Drs. Jl Spaulding, Neyda Buitrago, Valdez Razo and colleagues, with an educational amarilis from [employer]. ANIL-7 Assessment Billing ANIL-7 Assessment Tool: ANIL-7 Assessment 61121 Physical exam (Primary Care) Vital Signs: Last Vital Signs Temp 97.5 F 06/24/24 13:24 Pulse 70 06/24/24 13:24 BP 138/86 06/24/24 13:24 Pulse Ox 96 06/24/24 13:24 Oxygen Delivery Method Room Air 06/24/24 13:24 Care Plan Goal for BP management: <130/90 at goal BMI result Body Mass Index 43.9 BMI Assessment/Plan discussion: High BMI High, discussed plan: lifestyle, weight reduction, dietary, physical activity and alcohol moderation Tobacco/Smoking Status: Tobacco use Status Tobacco use date assessed 06/24/24 06/24/24 13:32 Patient Tobacco Use Status Never used Tobacco 06/24/24 13:24 Tobacco use type Cigarette 06/24/24 13:24 e-Cigarette/Vaping Use Never Used 06/24/24 13:24 PHQ-9: PHQ-9 Score PHQ-9: Total score 0 06/24/24 13:39 Depression Screening Interpretation: Negative Thrive Assessment: Date of Thrive Assessment Date Thrive assessed 06/24/24 06/24/24 13:32 Currently or been in a relationship where the following occur: No concerns reported Coding Level of Care Code Est Pt Level 4 (42228) Complex EM visit Add On G2211 Diagnoses FATMATA (obstructive sleep apnea) G47.33 Snoring R06.83 Obesity (BMI 35.0-39.9 without comorbidity) E66.9 Hypertension I10 Thyroid nodule E04.1 Asthma J45.909 Additional Codes PHQ-9 - 47383 - PHQ-9 Billing: Yes ([id number]) ANIL-7 Assessment Billing - ANIL-7 Assessment Tool: ANIL-7 Assessment 80797 ([id number]) Assessment & Plan Assessment & Plan (1) FATMATA (obstructive sleep apnea): Comment: HIS BODY FEATURES ARE TYPICAL OF OBSTRUCTIVE SLEEP APNEA, WHICH IS HIGHLY. SUSPECTED IN HIS CASE Code(s): G47.33 - Obstructive sleep apnea (adult) (pediatric) Category: Medical Plan: Being followed by Pulmonary. A sleep study is scheduled to assess obstructive sleep apnea. Further action will depend on study outcomes. Will continue to monitor. (2) Snoring: Comment: HE IS MORBIDLY OBESE, DOES HAVE HISTORY OF SNORING AT NIGHT. Code(s): R06.83 - Snoring Category: Medical Plan: Being followed by Pulmonary. A sleep study is scheduled to assess obstructive sleep apnea. Further action will depend on study outcomes. Will continue to monitor. (3) Obesity (BMI 35.0-39.9 without comorbidity): Comment: PATIENT DOES PRESENT WITH MORBID OBESITY WHICH HAS BEEN GOING ON FOR MANY YEARS. IT PREDISPOSES HIM TO HAVING OBSTRUCTIVE SLEEP APNEA, Code(s): E66.9 - Obesity, unspecified Category: Medical Plan: Being followed by Pulmonary. A sleep study is scheduled to assess obstructive sleep apnea. Further action will depend on study outcomes. Will continue to monitor. (4) Hypertension: Code(s): I10 - Essential (primary) hypertension Category: Medical Plan: Goal BP <130/90. BP at goal. Will continue atorvastatin 10 mg daily, Lisinopril 20 mg daily. Will continue to monitor. (5) Thyroid nodule: Code(s): E04.1 - Nontoxic single thyroid nodule Category: Medical Plan: Patient being followed by Endo has had a biopsy of thyroid and plan in plan with possible repeat Biopsy in 3-6 months with close monitoring. Will continue to monitor. (6) Asthma: Comment: LONGSTANDING HISTORY OF ALLERGIC BRONCHIAL ASTHMA. Code(s): J45.909 - Unspecified asthma, uncomplicated Category: Medical Plan: Being followed by Pulmonary. Currently on Wixela inhaler, Albuterol inhaler. Denies any pulmonary complaints. Will continue to monitor. Plan Plan Patient was informed and verbally consented to the use of an ambient scribe for clinic note documentation during this visit. 1. Essential Hypertension The patient's blood pressure is controlled with lisinopril 20 mg. The current regimen will continue, supported by regular physical activity. 2. Thyroid Nodule With Indeterminate Cytology The thyroid nodule biopsy results necessitate re-evaluation in three months with a potential repeat biopsy. 3. Obstructive Sleep Apnea Suspected A sleep study is scheduled to assess obstructive sleep apnea. Further action will depend on study outcomes. 4. Asthma Current asthma management strategies will persist, aligned with pulmonology recommendations, particularly following the sleep study. 5. Obesity Active efforts in weight reduction have shown progress; continued lifestyle modifications will aim to achieve further weight loss. Discussion Notes I discussed with the patient the current status and management of his essential hypertension, noting that his blood pressure shows improvement with ongoing antihypertensive therapy (lisinopril 20 mg). I outlined the indeterminate nature of the thyroid nodule cytology results, indicating that a reassessment and possible repeat biopsy will be necessary. Regarding the patient's weight management and suspected sleep apnea, I emphasized the importance of continued lifestyle changes. I informed him of the scheduled sleep study and its purpose in diagnosing potential obstructive sleep apnea, which may correlate with his asthma symptoms. We acknowledged the significant weight loss achieved thus far and encouraged sustained efforts in diet and exercise. We confirmed a follow-up schedule and anticipated further assessments and potential interventions once additional test results and consultations with specialists like pulmonology are complete. Medications: Refilled lisinopril 20 mg PO DAILY 90 tabs 1RF hypertension Patient Instructions: Patient Instructions - Continue taking lisinopril 20 mg daily as prescribed. - Maintain and potentially increase current exercise regimen. - Ensure a balanced diet conducive to weight loss. - Monitor any symptoms that may suggest an exacerbation of asthma or new onset of sleep issues. - Adhere to scheduled appointments for follow-up regarding thyroid nodule evaluation and sleep study. - Attend the physical exam in October as planned for further bloodwork evaluation. - Report any new or worsening symptoms immediately. Scribe Plan - Not visible on output: History of Present Illness The patient is a 53-year-old male presenting with a routine follow-up for hypertension, thyroid nodule evaluation, and weight management. Currently, hypertension is managed with lisinopril 20 mg; recent blood pressure is recorded at 138/86 mmHg. The patient reports cessation of dizziness and has adopted a more active lifestyle, exercising four to five times a week. A thyroid nodule previously biopsied showed indeterminate cytology results ([place] Category 3); a follow-up evaluation is planned. The patient acknowledges these findings and awaits comprehensive dialogue with the relevant physician. Addressing weight concerns, the patient effectively decreased weight from 303 lbs to 297 lbs within a month through dietary adjustments and increased physical activity. Historically, the patient weighed about 200 lbs, associated with high levels of biking activities, which have since reduced. The patient also manages asthma and has consulted with a shipping support who recommended a sleep study to evaluate suspected obstructive sleep apnea, emphasizing weight loss' importance on respiratory and cardiovascular health. 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 - Activity: Exercises four to five times per week; recent lifestyle changes to increase activity to manage weight. - Weight Management: Recent loss of approximately 10 lbs over one month due to improved dietary habits and increased physical activity. Review of Systems - Cardiovascular: Denies dizziness or swelling. - Respiratory: Reports ongoing asthma management, pending sleep study for suspected sleep apnea. - General: Reports significant weight reduction and improved physical activity levels. Physical Exam Appearance: Alert. Oriented X3. No acute distress. Head: Normal external exam. Normocephalic. Atraumatic. Eyes: Pupils are equal, round, and reactive to light. Extraocular movements intact. Conjunctiva and sclera normal. Eyelids normal. Throat: Pharynx normal. Uvula midline. Moist mucous membranes. Neck: Normal inspection. Neck supple. Full range of motion. Cardiovascular: Normal heart rate and rhythm. Heart sound normal. No murmurs noted. Pulses normal throughout. Respiratory: No respiratory distress. Painless inspiration. Breath sounds normal. No wheezes/rales/rhonchi noted. Chest nontender. No accessory muscle usage noted or decreased air movement noted. Back: Full range of motion noted. Skin: Skin warm and dry. Normal skin color. Normal skin turgor. No rashes/lesions/lacerations noted. Extremities: No lower extremity edema. No calf tenerness. Extremities exhibit normal range of motion. Extremities nontender. Neuro: Oriented X 3. No motor deficit. No sensory deficit. Reflexes normal. Results - Tests and Diagnostics: Thyroid biopsy indicates indeterminate cytology, [place] Category 3.
[2024-06-24 13:24] VITALS: BP 138/86; PULSE 70; TEMP 36.4; O2SAT 96; BMI 43.9
== END 2024-06-24 13:54 | disposition home or self-care (01) ==
LOC: HO.HMCH 13:18
PROVIDERS: PCP Internal Medicine; Visit Provider Physician Assistant Medical
DX: G47.33 Obstructive sleep apnea (adult) (pediatric) (principal); R06.83 Snoring; E66.9 Obesity, unspecified; Z68.41 Body mass index [BMI] 40.0-44.9, adult; I10 Essential (primary) hypertension; E04.1 Nontoxic single thyroid nodule; J45.909 Unspecified asthma, uncomplicated

== ENCOUNTER → 2024-06-24 13:18 | Outpatient (BNVA) | payer BC, SELFPAY | PROVIDERS: PCP Internal Medicine; Visit Provider Physician Assistant Medical | DX: G47.33 Obstructive sleep apnea (adult) (pediatric) (principal); R06.83 Snoring; E66.9 Obesity, unspecified; Z68.41 Body mass index [BMI] 40.0-44.9, adult; I10 Essential (primary) hypertension; E04.1 Nontoxic single thyroid nodule; J45.909 Unspecified asthma, uncomplicated; Z79.899 Other long term (current) drug therapy | CPT/HCPCS: 96127 ==

== ENCOUNTER 2024-06-30 15:21 | Outpatient (AMB) | payer BC, SELFPAY ==
[2024-06-30 15:30] VITALS: BP 130/82; PULSE 62; O2SAT 98; BMI 44.3
--- NOTE | 2024-06-30 15:30 | MHC.OFFVIS ---
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 Please provide accessories for nebulizer machine HPI Comments Details: 53-year-old male here today for follow up of solitary right-sided thyroid nodule. Here today with Trinh. HPI from prior visit CT chest 04/24/2024 showed a posteriorly projecting 2.4 cm right thyroid nodule. Subsequently ultrasound thyroid 05/10/2024 showed a right lower pole 4 X 2.6 X 2.1 cm solid, hypoechoic ill-defined, with the extrathyroidal extension, taller than wide TR 5 category nodule, per NATY guidelines this would be a high suspicion nodule with greater than 50% chance of malignancy. Patient currently denies heat or cold intolerance, diarrhea or constipation, hair loss, palpitation, anxiety, gained 7 lbs in the last 2 months, mood changes, low energy, changes in appearance of eyes or vision changes, tremors, increased diaphoresis or dry skin. ? Patient denies any difficulty swallowing, pain on swallowing or voice changes or difficulty breathing. Patient denies any history of childhood neck radiation. Denies having ever used lithium, amiodarone or biotin supplements. Patient denies any family history of thyroid cancer. Mother is on thyroid medication. 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 Afirma came back benign, risk of malignancy 4%. Physical exam General: sitting comfortably in no acute distress HEENT: normocephalic/atraumatic, EOM intact, moist oral mucosa Neck: supple, palpable 2 cm right-sided nodule Cardiac: normal heart sounds Pulm: normal breath sounds B/L, no added breath sounds Abd: not distended, no tenderness Extremities: no edema, no signs of myxedema Laboratory Tests 02/16/24 05/08/24 06:58 07:15 TSH 1.02 2.01 US THYROID 05/10/24 HISTORY: E04.1 - Nontoxic single thyroid nodule TECHNIQUE: Real-time grayscale ultrasound imaging was performed and images were reviewed. COMPARISON: Correlation is made with a chest CT dated 04/24/2024. FINDINGS: SIZE: The right thyroid lobe measures 4.8 x 3.0 x 2.1 cm. The left thyroid lobe measures 5.5 x 1.7 x 1.5 cm. The isthmus measures 2 mm. FLOW: Flow to the gland is normal. ECHOGENICITY: The echotexture of the gland is homogeneous. NODULES: There is a solitary nodule at the lower pole of the right thyroid lobe with imaging characteristics as follows: Nodule #: 1 Location: Lower pole right thyroid lobe measuring 4.0 x 2.6 x 2.1 cm. Shape: Ovoid, taller than wide. Margins: Somewhat ill-defined, with extrathyroidal extension. Echotexture: Hypoechoic Morphology: Solid Calcifications: None TIRADS: TR5: Highly suspicious. US/US thyroid IMPRESSION: Suspicious 4.0 x 2.6 x 2.1 cm nodule at the lower pole the right thyroid lobe. Ultrasound-guided fine-needle aspiration is recommended. CT chest without contrast 04/24/24 Comparison: CR/SR - XR CHEST 2V - 04/19/24 11:51 EST CR/SR - RIBS RIGHT PA CHEST [id number] - 09/08/19 08:52 EDT Findings: No consolidation, edema, pleural effusion or pneumothorax. Couple 3 mm perifissural nodule along the minor and right interlobar fissure not requiring routine follow-up if patient felt to be of low risk. Otherwise optional CT follow-up in 12 months per Fleischner society guidelines. No dominant nodule. Minimal patchy air trapping which may relate to mild obstructive or small airway disease changes. Airways otherwise unremarkable. Thoracic inlet intact. Posterior exophytic smoothly marginated right thyroid nodule at approximately 14 x 24 mm for which follow-up nonemergent thyroid ultrasound suggested. Heart size normal. No pericardial effusion. No coronary artery calcification. Normal caliber thoracic aorta . Pulmonary trunk upper normal at 2.9 cm. No enlarged mediastinal or hilar lymph nodes. Esophagus within normal limits. Minimal hiatal hernia. No acute process evident upper abdomen. Bones intact. Soft tissues unremarkable. IMPRESSION: No acute cardiopulmonary process. Minimal air trapping suggesting possible mild small airway disease either obstructive or reactive. Posterior projecting 24 mm right thyroid nodule for which follow-up nonemergent thyroid ultrasound suggested. This document has been electronically signed by: Cuauhtemoc Perkins MD on 04/24/2024 11:08:00 [facility] Medical History FATMATA (obstructive sleep apnea) Snoring Obesity (BMI 35.0-39.9 without comorbidity) Prediabetes Anemia Hypertension Thyroid nodule Hyperlipidemia Asthma Surgical History (Updated 06/30/24 @ 15:34 by MARICRUZ Ashraf) Hx of ultrasound guided needle biopsy History of elbow surgery Hx of repair of rotator cuff Social History Household Members: Spouse Housing: House Do you presently have visiting nurse or other home services: No Alcohol intake: never Patient Tobacco Use Status: Never used Tobacco Tobacco use type: Cigarette e-Cigarette/Vaping Use: Never Used Second Hand Smoke Exposure: No service: No Current occupational status: employed Current occupational exposures/hazards: No Cognitive needs: No Hearing needs: No Vision needs: Yes Physical Exam Vital Signs: Last Vital Signs Pulse 62 06/30/24 15:30 BP 130/82 06/30/24 15:30 Pulse Ox 98 06/30/24 15:30 Oxygen Delivery Method Room Air 06/30/24 15:30 BMI result Body Mass Index 44.3 Assessment & Plan Assessment & Plan (1) Thyroid nodule: Code(s): E04.1 - Nontoxic single thyroid nodule Category: Medical Plan: 53-year-old male with no family history of thyroid cancer, with no personal history of head or neck radiation who is coming in today for initial evaluation of right-sided thyroid nodule. CT chest 04/24/2024 showed a posteriorly projecting 2.4 cm right thyroid nodule. Subsequently ultrasound thyroid 05/10/2024 showed a right lower pole 4 X 2.6 X 2.1 cm solid, hypoechoic ill-defined, with the extrathyroidal extension, taller than wide TR 5 category nodule, per NATY guidelines this would be a high suspicion nodule with greater than 50% chance of malignancy. Normal thyroid function from May 2024. No compressive symptoms. 06/16/2024: Underwent FNA biopsy of the right mid/lower 4 cm thyroid nodule: Atypia of undetermined significance, [place] category 3 with groups of follicular cells in a macrofollicular arrangement with some crowding and hyperchromasia present. Afirma came back benign, risk of malignancy 4%. At this point we will plan to repeat an ultrasound in 1 year from the last 1. Plan: -ordered thyroid ultrasound to be done beginning of May 2025 as well as TSH with reflex free T4 -follow up in end of May 2025 to discuss results Plan See above Orders: Orders US thyroid 05/03/25 E04.1 - Nontoxic single thyroid nodule TSH reflex Free T4 05/03/25 E04.1 - Nontoxic single thyroid nodule Patient Instructions: Do thyroid ultrasound in May 2025, someone we will call you to schedule this appointment -do blood work in May 2025 Follow up end of May 2025 Coding Level of Care Code Est Pt Level 3 (84602) Diagnoses Thyroid nodule E04.1
--- OUTSIDE RECORDS SUMMARY | 2024-06-30 17:43 | XMS_ITS | Patient Health Record ---
Author Organization [facility] Address [address] [place] [address] Care Team Providers Care Rib Stiffener And Heel Dipper Name Role Phone Yared (RETIRED) Jl RUSSELL Primary Care Provid er Unavailable Leandro Thakkar Jr Unavailable Reason For Referral No Information Medications Medication SIG (Take, Route, Frequency, Duration) Notes Start Date End Date Status Advair Diskus 250-50 MCG/DOSE 1 puff Inhalation Twice a day/ as needed Active levoFLOXacin 500 MG 1 tablet Orally Once a day for 10 day(s) 09/10/2021 Active Fiber - as directed Orally A ctive metroNIDAZOLE 500 MG 1 tablet Orally Thr ee times a day for 10 day(s) 09/10/2021 Active Immunizations Vaccine Route Administration Date Status Comme nts Influenza Unknown 11/29/2017 Administered Influenza Unknown 01/30/2020 Administered Social History Tobacco Use: Social History Observation Description Date Details (start date - stop date) Never Smoker NA - NA Tobacco Use/Smoking Question Answer Notes Patient is [...] Never (0 point) Points 3 Interpretation Negative Problems Problem Type SNOMED Code ICD Code Onset Dates Problem Status W/U Status Risk Notes Problem 5196901 Diverticulitis o f large intestine without perforation or abscess with bleeding (K57.33) Active confirmed Problem 886722602 Diverticulitis (K57.92) Active confirmed Plan Of Treatment Future Test Test Name Order Date COLONOSCOPY 02/12/2018 Insurance Providers Payer Name Payer Address Payer Phone Subscriber Number Group Number Insured Name Patient Relationship to Insured Coverage Start Date Coverage End Date [facility] [address] [place] [phone] [id number] ABBE WALTON Self - patient is the insured Medical (General) History Medical History History ICD Code asthma hypertension elevated cholesterol obstructive sleep apnea hx of diverticulitis Surgical History Surgery Date(Month/Year) rotator cuff tear repair left 12/2017 left elbow as teenager
== END 2024-06-30 15:56 | disposition home or self-care (01) ==
LOC: HO.ENCR 15:22
PROVIDERS: PCP Internal Medicine; Visit Provider Student in an Organized Health Care Education/Training Program
DX: E04.1 Nontoxic single thyroid nodule (principal)
CPT/HCPCS: 99213

== ENCOUNTER → 2024-06-30 15:21 | Outpatient (BNVA) | payer BC, SELFPAY | PROVIDERS: PCP Internal Medicine; Visit Provider Student in an Organized Health Care Education/Training Program ==

== ENCOUNTER 2024-07-29 09:52 | Outpatient (REF) | payer BC, SELFPAY ==
--- NOTE | 2024-07-29 09:58 | PFT_ITS ---
Spirometry [] Lung Volumes [] Diffusion Capacity [] Methacholine Challenge [] Flow Volume Loops [] MVV [] MIP/MEP(Max inspiratory pressure/Max expiratory pressure) [] 6 Minute Walk Test [] ABG [] Interpretation [] MTDD
[2024-07-29 11:12] VITALS: PULSE 51; O2SAT 98
== END 2024-07-29 09:53 | disposition home or self-care (01) ==
LOC: HO.RESP 09:52
PROVIDERS: PCP Internal Medicine; Visit Provider Internal Medicine
DX: J45.909 Unspecified asthma, uncomplicated (principal); R05.9 Cough, unspecified
CPT/HCPCS: 94010; 94640; 94727; 94729

== ENCOUNTER 2024-07-29 10:44 | Outpatient (AMB) | payer BC, SELFPAY ==
[2024-07-29 10:46] VITALS: BP 140/78; PULSE 53; O2SAT 98; BMI 43.9
--- NOTE | 2024-07-29 10:46 | A.OFFVIS_ITS ---
Vital Signs 07/29/24 10:46 Height 5 ft 9 in Weight 297 lb 9.985 oz BMI 43.9 BP 140/78 H Blood Pressure Location Rt brachial Position Sitting Pulse 53 Pulse Source Pulse Oximeter Pulse Oximetry (%) 98 Oxygen Delivery Method Room Air Intake Visit Reasons: Asthma, obesity, FATMATA Intake Note: fatmata Allergies No Known Allergies Allergy (Verified 07/29/24 11:33) Medication List - Last Reconciled 07/29/24 by Jeremy Bauer MD albuterol sulfate 90 mcg/actuation 1 inh inhalation QID PRN atorvastatin 10 mg PO DAILY fluticasone propion-salmeterol 500-50 mcg/dose (Wixela Inhub) 1 ea inhalation BID ipratropium-albuterol 0.5 mg-3 mg(2.5 mg base)/3 mL 3 mL inhalation Q6-8H PRN lisinopril 20 mg PO DAILY nebulizers (Altera Nebulizer System) As directed. Please provide accessories for nebulizer machine Do you need a note to return to daycare/school/sports/work: No HPI HPI Asthma: Details: THIS GENTLEMAN IS 54 YEARS OLD MORBIDLY OBESE WITH HISTORY OF BRONCHIAL ASTHMA , AND ALSO QUESTION OF OBSTRUCTIVE SLEEP APNEA, COMES TODAY FOR FOLLOW-UP AFTER HIS PFT. SLEEP STUDY IS STILL PENDING. HE CLAIMS THAT LONG HE IS USING HIS MAINTENANCE INHALER, WIXELA HIS ASTHMA SYMPTOMS REMAIN UNDER CONTROL. HE HAS NOT NEEDED TO USE ALBUTEROL INHALER OR THE IPRATROPIUM-ALBUTEROL SOLUTION IN THE NEBULIZER. HE IS USING WIXELA ONLY ONCE A DAY. HE REMAINS GROSSLY OBESE, HE IS NOT DOING ANY EXERCISE JUST TRIES TO WATCH HIS DIET. 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 [facility]LY [facility], [facility] Medical History FATMATA (obstructive sleep apnea) Snoring Obesity (BMI 35.0-39.9 without comorbidity) Prediabetes Anemia Hypertension Thyroid nodule Hyperlipidemia Asthma Surgical History Hx of ultrasound guided needle biopsy History of elbow surgery Hx of repair of rotator cuff Social History Household Members: Spouse Housing: House Do you presently have visiting nurse or other home services: No Alcohol intake: never Patient Tobacco Use Status: Never used Tobacco Tobacco use type: Cigarette e-Cigarette/Vaping Use: Never Used Second Hand Smoke Exposure: No service: No Current occupational status: employed Current occupational exposures/hazards: No Cognitive needs: No Hearing needs: No Vision needs: Yes Review of Systems Const All systems reviewed & are unremarkable except as noted in HPI and below Reports weight gain Eyes Reports no additional complaints ENT Reports other (THYROID NODULE HAD A NEEDLE BIOPSY) Card Denies chest pain, Denies irregular heart rhythm and Denies leg edema Resp Reports as per HPI GI Reports no additional complaints Reports no additional complaints Musc Reports no additional complaints Skin/Breast Reports system reviewed and no additional complaints, except as documented Neuro Reports no additional complaints Psych Reports no additional complaints Endo Reports no additional complaints Aller/Immun Reports no additional complaints Physical Exam Vital Signs: Last Vital Signs Pulse 53 07/29/24 10:46 BP 140/78 H 07/29/24 10:46 Pulse Ox 98 07/29/24 10:46 Oxygen Delivery Method Room Air 07/29/24 10:46 BMI result Body Mass Index 43.9 HE HAS GROSSLY OVERWEIGHT WITH ROUND FACE AND SHORT AND OBESE NECK Const General: comfortable, no acute distress, alert and awake Orientation/consciousness: patient oriented x3 HEENT Head: Yes normal to inspection General nose exam: No nasal polyps present and No nasal discharge present Face and sinus: Yes sinuses nontender Mouth: oropharynx abnormals (OROPHARYNX IS NARROW AND CROWDED, MALLAMPATI SCALE 4) Throat: Yes posterior oropharynx normal Eyes General: appearance normal, both eyes and all related structures Neck Neck: Yes normal visual inspection, Yes no lymphadenopathy, Yes trachea midline and Yes no JVD Thyroid: Thyroid normal Chest Chest palpation & inspection: normal inspection of the chest, normal palpation of entire chest wall and no tenderness Resp Other: PERCUSSION NOTE IS NOT PERCEPTIBLE BECAUSE OF HIS MARKED OBESITY BREATH SOUNDS ARE SLIGHTLY DISTANT ON BOTH SIDES. I DID NOT HEAR ANY WHEEZES OR CREPITATIONS Cardio Palpation: normal PMI Rate: regular rate Rhythm: regular rhythm Heart sounds: no gallops and no murmurs Peripheral pulses: Peripheral pulses 2+ throughout GI Palpation (GI): Soft to palpation, nontender, No hepatosplenomegaly present and no masses Auscultation: normal bowel sounds Back/Spine/Pelvis Thoracic/Lumbar Spine: thoracic and lumbar spine normal to inspection Skin General skin exam: no rashes or lesions noted Neuro General: patient oriented x3 and no focal motor deficits Cranial nerves: Yes CN's II-XII intact bilaterally Extrem General: Yes normal to inspection, Yes no clubbing, cyanosis or edema and Yes no calf tenderness Psych Appearance: grossly normal and well kempt Speech and movement: Normal speech and movement present Results Reviewed Results Reviewed: PULMONARY FUNCTION TEST PERFORMED EARLIER TODAY, IS ESSENTIALLY NORMAL AND THERE IS NO EVIDENCE OF OBSTRUCTIVE OR RESTRICTIVE PULMONARY DISORDER. * IT IS TO BE NOTED THAT HE HAD USED WIXELA INHALER, 1 INHALATION EARLIER THIS MORNING . Assessment & Plan Assessment & Plan (1) Asthma: Comment: LONGSTANDING HISTORY OF ALLERGIC BRONCHIAL ASTHMA. WELL CONTROLLED AT THIS TIME . PULMONARY FUNCTION TEST IS NORMAL, BUT HE COULD STILL HAVE INTERMITTENT BRONCHIAL ASTHMA Code(s): J45.909 - Unspecified asthma, uncomplicated Category: Medical Plan: ADVISED TO USE ONLY ALBUTEROL HFA 2 PUFFS Q 4-6 HOURS PRN FOR WHEEZING OR SUSTAINED COUGH. DO NOT USE WIXELA , UNLESS SYMPTOMS OF COUGH OR WHEEZING START HAPPENING TO OFTEN. * ON HIS NEXT VISIT HE SHOULD HAVE SPIROMETRY IN THE OFFICE, WITHOUT HAVING USED HIS BRONCHODILATOR INHALER FOR 1 OR 2 DAYS. (2) FATMATA (obstructive sleep apnea): Comment: HIS BODY FEATURES ARE TYPICAL OF OBSTRUCTIVE SLEEP APNEA, WHICH IS HIGHLY. SUSPECTED IN HIS CASE Code(s): G47.33 - Obstructive sleep apnea (adult) (pediatric) Category: Medical Plan: HE DOES HAVE HISTORY OF SNORING AND THERE IS A GOOD POSSIBILITY THAT HE HAS SLEEP APNEA. SLEEP STUDY IS PENDING WOULD BE DONE IN ABOUT 2 WEEKS. I WILL TALK TO THE PATIENT OF THE SLEEP STUDY. (3) Obesity (BMI 35.0-39.9 without comorbidity): Comment: PATIENT DOES PRESENT WITH MORBID OBESITY WHICH HAS BEEN GOING ON FOR MANY YEARS. IT PREDISPOSES HIM TO HAVING OBSTRUCTIVE SLEEP APNEA, Code(s): E66.9 - Obesity, unspecified Category: Medical Plan: HAD A GOOD DISCUSSION ABOUT NEED TO LOSE HIS WEIGHT. HE WOULD TRY TO DO IT BY HIMSELF BY WATCHING DIET AND ALSO ENCOURAGED TO START WALKING DAILY. Coding Level of Care Code Est Pt Level 3 (53801) Diagnoses Asthma J45.909 FATMATA (obstructive sleep apnea) G47.33 Obesity (BMI 35.0-39.9 without comorbidity) E66.9
== END 2024-07-29 11:34 | disposition home or self-care (01) ==
LOC: HO.HPS 10:44
PROVIDERS: PCP Internal Medicine; Visit Provider Internal Medicine
DX: J45.909 Unspecified asthma, uncomplicated (principal); G47.33 Obstructive sleep apnea (adult) (pediatric); E66.9 Obesity, unspecified
CPT/HCPCS: 99213

== ENCOUNTER → 2024-08-12 10:55 | Outpatient (REF) | payer BC, SELFPAY | LOC: HO.SL 10:55 | PROVIDERS: PCP Internal Medicine; Visit Provider Internal Medicine | DX: G47.33 Obstructive sleep apnea (adult) (pediatric) (principal); E66.9 Obesity, unspecified | CPT/HCPCS: 95806 ==

== ENCOUNTER → 2024-08-12 11:09 | Outpatient (BNV) | payer BC, SELFPAY | PROVIDERS: PCP Internal Medicine; Visit Provider Internal Medicine | DX: G47.33 Obstructive sleep apnea (adult) (pediatric) (principal) | CPT/HCPCS: 95806 ==

== ENCOUNTER 2024-09-07 14:04 | Outpatient (AMB) | payer BC, SELFPAY ==
[2024-09-07 14:18] VITALS: BP 130/82; PULSE 72; O2SAT 98; BMI 43.9
--- NOTE | 2024-09-07 14:18 | A.OFFVIS_ITS ---
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 Please provide accessories for nebulizer machine Do you need a note to return to daycare/school/sports/work: No HPI HPI asthma: Details: Omar is 54 years old gentleman with morbid obesity. And just underwent home- based sleep study. He comes to discuss the results and treatment options. He say is on the day of sleep study he did not sleep well he kept on waking after 03:00. He does have daytime sleepiness, and he does snore heavy at night. Bronchial asthma is well controlled and he is using Wixela only as a rescue inhaler. He does not have to use the nebulizer. [facility] Medical History FATMATA (obstructive sleep apnea) Snoring Obesity (BMI 35.0-39.9 without comorbidity) Prediabetes Anemia Hypertension Thyroid nodule Hyperlipidemia Asthma Surgical History Hx of ultrasound guided needle biopsy History of elbow surgery Hx of repair of rotator cuff Social History Household Members: Spouse Housing: House Do you presently have visiting nurse or other home services: No Alcohol intake: never Patient Tobacco Use Status: Never used Tobacco Tobacco use type: Cigarette e-Cigarette/Vaping Use: Never Used Second Hand Smoke Exposure: No service: No Current occupational status: employed Current occupational exposures/hazards: No Cognitive needs: No Hearing needs: No Vision needs: Yes Review of Systems Const All systems reviewed & are unremarkable except as noted in HPI and below Reports weight gain Eyes Reports no additional complaints ENT Reports other (THYROID NODULE HAD A NEEDLE BIOPSY) Card Denies chest pain, Denies irregular heart rhythm and Denies leg edema Resp Reports as per HPI GI Reports no additional complaints Reports no additional complaints Musc Reports no additional complaints Skin/Breast Reports system reviewed and no additional complaints, except as documented Neuro Reports no additional complaints Psych Reports no additional complaints Endo Reports no additional complaints Aller/Immun Reports no additional complaints Physical Exam Vital Signs: Last Vital Signs Pulse 72 09/07/24 14:18 BP 130/82 09/07/24 14:18 Pulse Ox 98 09/07/24 14:18 Oxygen Delivery Method Room Air 09/07/24 14:18 BMI result Body Mass Index 43.9 HE HAS GROSSLY OVERWEIGHT WITH ROUND FACE AND SHORT AND OBESE NECK Const General: comfortable, no acute distress, alert and awake Orientation/consciousness: patient oriented x3 HEENT Head: Yes normal to inspection General nose exam: No nasal polyps present and No nasal discharge present Face and sinus: Yes sinuses nontender Mouth: oropharynx abnormals (OROPHARYNX IS NARROW AND CROWDED, MALLAMPATI SCALE 4) Throat: Yes posterior oropharynx normal Eyes General: appearance normal, both eyes and all related structures Neck Neck: Yes normal visual inspection, Yes no lymphadenopathy, Yes trachea midline and Yes no JVD Thyroid: Thyroid normal Chest Chest palpation & inspection: normal inspection of the chest, normal palpation of entire chest wall and no tenderness Resp Other: PERCUSSION NOTE IS NOT PERCEPTIBLE BECAUSE OF HIS MARKED OBESITY BREATH SOUNDS ARE SLIGHTLY DISTANT ON BOTH SIDES. I DID NOT HEAR ANY WHEEZES OR CREPITATIONS Cardio Palpation: normal PMI Rate: regular rate Rhythm: regular rhythm Heart sounds: no gallops and no murmurs Peripheral pulses: Peripheral pulses 2+ throughout GI Palpation (GI): Soft to palpation, nontender, No hepatosplenomegaly present and no masses Auscultation: normal bowel sounds Back/Spine/Pelvis Thoracic/Lumbar Spine: thoracic and lumbar spine normal to inspection Skin General skin exam: no rashes or lesions noted Neuro General: patient oriented x3 and no focal motor deficits Cranial nerves: Yes CN's II-XII intact bilaterally Extrem General: Yes normal to inspection, Yes no clubbing, cyanosis or edema and Yes no calf tenderness Psych Appearance: grossly normal and well kempt Speech and movement: Normal speech and movement present Results Reviewed Results Reviewed: Results of home-based sleep study on 08/12/2024 are reviewed. Total sleep time AHI 10 supine position AHI 12 snoring for 44% of the sleep time. Borderline nocturnal hypoxemia with the O2 sat below 88% for 6 minutes Assessment & Plan Assessment & Plan (1) Asthma: Comment: LONGSTANDING HISTORY OF ALLERGIC BRONCHIAL ASTHMA. WELL CONTROLLED AT THIS TIME . PULMONARY FUNCTION TEST IS NORMAL, BUT HE COULD STILL HAVE INTERMITTENT BRONCHIAL ASTHMA Code(s): J45.909 - Unspecified asthma, uncomplicated Category: Medical Plan: He uses Wixela only p.r.n., and most of the times only once a day and his respiratory status is well controlled Advised that he can keep Wixela on hand and use it only p.r.n.. He does not need to use the albuterol-ipratropium solution in the nebulizer (2) FATMATA (obstructive sleep apnea): Comment: Home-based sleep study does confirm the diagnosis of obstructive sleep apnea.. Total sleep time AHI is 10.1 which is consistent with mild obstructive sleep apnea. However he has heavy snoring and also borderline hypoxemia . Code(s): G47.33 - Obstructive sleep apnea (adult) (pediatric) Category: Medical Plan: I discussed with him the treatment options including conservative measures vs use of CPAP. He prefers to go on CPAP therapy , so that he becomes more energetic and try to lose weight. CPAP therapy with auto PAP mode and pressure setting of 6-20 cm, using fullface mask is ordered. Will see him in 2 months and check his compliance and benefits. (3) Obesity (BMI 35.0-39.9 without comorbidity): Comment: PATIENT DOES PRESENT WITH MORBID OBESITY WHICH HAS BEEN GOING ON FOR MANY YEARS. IT PREDISPOSES HIM TO HAVING OBSTRUCTIVE SLEEP APNEA, Code(s): E66.9 - Obesity, unspecified Category: Medical Plan: Discussed about the weight issue and advised him to get on to a weight reduction program. He is anxious to start using the CPAP so that he becomes more energetic during the daytime and make him walk more. He is watching. His diet carefully Coding Level of Care Code Est Pt Level 3 (26952) Diagnoses Asthma J45.909 FATMATA (obstructive sleep apnea) G47.33 Obesity (BMI 35.0-39.9 without comorbidity) E66.9
== END 2024-09-07 14:49 | disposition home or self-care (01) ==
LOC: HO.HPS 14:05
PROVIDERS: PCP Internal Medicine; Visit Provider Internal Medicine
DX: J45.909 Unspecified asthma, uncomplicated (principal); G47.33 Obstructive sleep apnea (adult) (pediatric); E66.9 Obesity, unspecified
CPT/HCPCS: 99213

== ENCOUNTER 2024-10-26 09:07 | Outpatient (REF) | payer BC, SELFPAY ==
[2024-10-26 13:44] LABS: Resp Syncy Virus RNA Qual PCR NEGATIVE (Negative); SARS COV2 PCR INHOUSE NEGATIVE (Negative)
== END 2024-10-26 09:08 | disposition home or self-care (01) ==
LOC: HO.LNP 09:07
PROVIDERS: PCP Internal Medicine; Visit Provider Physician Assistant Medical
DX: R05.1 Acute cough (principal); R09.89 Other specified symptoms and signs involving the circulatory and respiratory systems; Z11.52 Encounter for screening for COVID-19
CPT/HCPCS: 87637

== ENCOUNTER 2024-10-26 09:07 | Outpatient (AMB) | payer BC, SELFPAY ==
[2024-10-26 10:07] VITALS: BP 144/76; PULSE 66; TEMP 36.8; O2SAT 97; BMI 43.1
--- NOTE | 2024-10-26 10:07 | AM.OFFWIN_ITS ---
Intake Vital Signs 10/26/24 10:07 Height 5 ft 9 in Weight 292 lb 2 oz BMI 43.1 BP 144/76 H Blood Pressure Location Lt brachial Position Sitting Pulse 66 Pulse Source Pulse Oximeter Temp 98.2 F Temp Source Oral Pulse Oximetry (%) 97 Oxygen Delivery Method Room Air Intake Visit Reasons: EP Severe cough, intermittent fever Patient Tobacco Use Status: Never used Tobacco Allergies No Known Allergies Allergy (Verified 10/26/24 10:12) Do you need a note to return to daycare/school/sports/work: No HPI HPI Comments History of Present Illness Details History - The patient is a 54-year-old male pres enting with persistent cough and sore throat. - Symptoms began two weeks ago with inte rmittent fevers and green mucus pr oduction. - The patient experienced a temporary im provement before symptoms worsened last weekend. - History of pneumonia in March, curre ntly without symptoms of pneumonia. - Self-treatment with amoxicillin for th e past 2 days has led to some respiratory improvement. - Severe cough affecting sleep, partiall y relieved by inhaler use. - Recent exposure to COVID-19 positive i ndividual, questioning test accuracy. - Sinus congestion and severe sore throa t noted, particularly over the weekend. - He denies fever or chills. He denies a bd pain, n/v/d, CP, or SOB. Physical Exam General: Cooperative, healthy appearing, comfortable and no acute distress Orientation/consciousness: Patient oriented x3 Limitations: No limitations Head: Normal to inspection Ears: Hearing grossly normal bilaterally, external ears normal and TM's normal bilaterally Nose: Normal external nose present, normal nares present, and no nasal discharge present. Face and sinus: Sinuses nontender to palpation, but patient reports sinus congestion and pressure. Mouth: Normal oral and palatal mucosa present and moist mucous membranes noted. Throat: Tonsils normal. Uvula is midline. Posterior oropharynx with erythema and no exudates. Patient reports a sore throat over the weekend. Eyes: Appearance normal, both eyes and all related structures Neck: Normal visual inspection, full ROM. No lymphadenopathy noted. Respiratory: Clear to auscultation bilaterally. Normal respiratory effort, able to speak in complete sentences. No respiratory distress, not tachypneic, no tripod positioning and no use of accessory muscles. Patient reports a brutal cough affecting sleep. Cardiovascular: Regular rate and rhythm. Normal S1 and S2 Skin: No rashes or lesions noted Patient was informed and verbally consented to the use of an ambient scribe for clinic note documentation during this visit [facility] Medical History FATMATA (obstructive sleep apnea) Snoring Obesity (BMI 35.0-39.9 without comorbidity) Prediabetes Anemia Hypertension Thyroid nodule Hyperlipidemia Asthma Surgical History Hx of ultrasound guided needle biopsy History of elbow surgery Hx of repair of rotator cuff Social History Household Members: Spouse Housing: House Do you presently have visiting nurse or other home services: No Alcohol intake: never Patient Tobacco Use Status: Never used Tobacco Tobacco use type: Cigarette e-Cigarette/Vaping Use: Never Used Second Hand Smoke Exposure: No service: No Current occupational status: employed Current occupational exposures/hazards: No Cognitive needs: No Hearing needs: No Vision needs: Yes Review of Systems Const All systems reviewed & are unremarkable except as noted in HPI and below Physical Exam Vital Signs: Last Vital Signs Temp 98.2 F 10/26/24 10:07 Pulse 66 10/26/24 10:07 BP 144/76 H 10/26/24 10:07 Pulse Ox 97 10/26/24 10:07 Oxygen Delivery Method Room Air 10/26/24 10:07 BMI result Body Mass Index 43.1 Assessment & Plan Assessment & Plan (1) Cough: Code(s): R05.9 - Cough, unspecified Qualifiers: Cough type: acute Qualified Code(s): R05.1 - Acute cough Plan Most likely URI vs covid vs flu vs RSV vs CAP Plan - Tylenol or motrin as needed - Diet as tolerated - Conduct COVID-19, influenza, and RSV testing to identify potential viral infections. - Continue amoxicillin for seven days if effective; adjust treatment based on test outcomes. - Prescribe cough medicine to manage symptoms and aid sleep. - Review swab test results to refine treatment strategy. - VSS, pt well appearing Orders: Orders SARS-CoV2/FLU/RSV Today R09.89 - Other specified symptoms and signs involving the circulatory and respiratory systems Medications: New amoxicillin 500 mg PO Q12H 10 tabs 0RF 5 days benzonatate 100 mg PO bid-tid PRN 21 caps 0RF Cough 7 days Coding Level of Care Code Est Pt Level 4 (00139) Diagnoses Acute cough R05.1 Cough type: acute
== END 2024-10-26 10:58 | disposition home or self-care (01) ==
PROVIDERS: PCP Internal Medicine; Visit Provider Physician Assistant Medical
DX: R05.1 Acute cough (principal)

== ENCOUNTER 2024-11-18 08:55 | Outpatient (AMB) | payer OTHER, SELFPAY ==
[2024-11-18 09:11] VITALS: BP 128/74; PULSE 62; RESP 16; TEMP 36.3; O2SAT 96; BMI 44.2
--- NOTE | 2024-11-18 09:11 | MHC.PC.OV ---
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 Please provide accessories for nebulizer machine Tobacco use date assessed: 06/24/24 Dental Screening Dental Screen Date: 06/24/24 Did you have a dental visit in the last 12 months?: Yes Did you have a dental problem in the last 6 months where you did not have access to dental care?: No Was dental information given to patient?: Patient has dentist HPI Physical Exam HPI Details The patient is a 54-year-old male presenting for an annual physical examination and evaluation of a sore throat. The sore throat began approximately three weeks ago, initially associated with symptoms of a summer cold, including a productive cough with green sputum. The patient self-initiated amoxicillin treatment, which provided temporary relief, but the sore throat recurred intermittently, particularly during a recent vacation. The patient reports using a CPAP machine for sleep apnea, which may contribute to throat dryness, although he maintains the humidifier and uses distilled water. The patient has a history of anemia, noted during blood work in May, with no significant symptoms reported. He also has a thyroid nodule, discovered during a hospital visit earlier this year, which was biopsied and found to be benign, but requires follow-up in March or May. The patient is at a pre-diabetic state with an A1c of 5.8, and he acknowledges dietary indiscretions, particularly during a recent vacation. He is currently on lisinopril for hypertension and atorvastatin for hyperlipidemia, both of which are well-controlled. Social History - Employment: Works in [place], [place]. - Exercise: Engages in biking two to three times a week. - Nutrition: Reports dietary indiscretions, particularly during vacations. [facility] Medical History (Updated 11/18/24 @ 12:15 by Elizabeth Garza PA-C) Morbid obesity with BMI of 40.0-44.9, adult Hyperlipidemia Annual physical exam Sore throat FATMATA (obstructive sleep apnea) Snoring Obesity (BMI 35.0-39.9 without comorbidity) Prediabetes Anemia Hypertension Thyroid nodule Asthma Surgical History Hx of ultrasound guided needle biopsy History of elbow surgery Hx of repair of rotator cuff Social History Household Members: Spouse Housing: House Do you presently have visiting nurse or other home services: No Alcohol intake: never Patient Tobacco Use Status: Never used Tobacco Tobacco use type: Cigarette e-Cigarette/Vaping Use: Never Used Second Hand Smoke Exposure: No service: No Current occupational status: employed Current occupational exposures/hazards: No Cognitive needs: No Hearing needs: No Vision needs: Yes Questionnaire PHQ-9 Over the last 2 weeks, how often have you been bothered by any of the following problems? 1. Little interest or pleasure in doing things: not at all 2. Feeling down, depressed, or hopeless: not at all 3. Trouble falling or staying asleep, or sleeping too much: not at all 4. Feeling tired or having little energy: not at all 5. Poor appetite or overeating: not at all 6. Feeling bad about yourself - or that you are a failure or have let yourself or your family down: not at all 7. Trouble concentrating on things, such as reading the newspaper or watching television: not at all 8. Moving or speaking so slowly that other people could have noticed. Or the opposite - being so fidgety or restless that you have been moving around a lot more than usual: not at all 9. Thoughts that you would be better off or of hurting yourself in some way: not at all Total score: 0 Depression Screening Interpretation: Negative Depression Screening Done: Yes 23436 - PHQ-9 Billing: Yes Source: Developed by Drs. Jl Spaulding, Neyda Buitrago, Valdez Razo and colleagues, with an educational amarilis from [employer]. Thrive Questionnaire Date Thrive assessed: 06/24/24 I am a: Patient What is your living situation today?: I have a steady place to live Within the past 12 months, did the food you bought not last and you didn't have the money to get more?: Never true Within the past 12 months, did you worry whether your food would run out before you got money to buy more?: Never true Do you have trouble paying for medicines?: No Do you have trouble getting transportation to medical appointments?: No Do you have trouble paying your heating and electricity bill?: No Do you have trouble taking care of your child, family member or friend?: No Do you have trouble with day-to-day activities such as bathing, preparing meals, shopping, managing finances, etc.?: No Are you currently unemployed and looking for a job?: No Are you interested in more education?: No Please select the resources that you would like help with: None Currently or been in a relationship where the following occur: No concerns reported THRIVE Score: 0 AUDIT C Alcohol Use Questionnaire (AUDIT-C) 1. How often do you have a drink containing alcohol?: Monthly or less 2. How many drinks containing alcohol do you have on a typical day when you are drinking?: 1 or 2 3. How often do you have six or more drinks on one occasion?: Never Total Score: 1 Score Reviewed/Action Taken: No ANIL-7 AMB Questionnaire ANIL-7 Date ANIL - 7 assessed: 06/24/24 Feeling nervous, anxious, or on edge: 0 = Not at all Not being able to stop or control worryin = Not at all Worrying too much about different things: 0 = Not at all Trouble relaxin = Not at all Being so restless that it is hard to sit still: 0 = Not at all Becoming easily annoyed or irritable: 0 = Not at all Feeling afraid as if something awful might happen: 0 = Not at all Total ANIL-7 score (0-4 normal; 5-9 mild; 10-14 moderate; 15-21 severe): 0 Source: Developed by Drs. Jl Spaulding, Neyda Buitrago, Valdez Razo and colleagues, with an educational amarilis from [employer]. ANIL-7 Assessment Billing ANIL-7 Assessment Tool: ANIL-7 Assessment 70102 Review of Systems Const Details: - General: Denies fever. - Respiratory: Reports productive cough with green sputum three weeks ago; denies current cough. - Cardiovascular: Denies chest pain or leg swelling. - Gastrointestinal: Denies abdominal pain. - Endocrine: Reports thyroid nodule, benign on biopsy. - Musculoskeletal: Denies leg swelling. - Neurological: Denies headaches or dizziness. All systems reviewed & are unremarkable except as noted in HPI and below Physical exam (Primary Care) Vital Signs: Last Vital Signs Temp 97.4 F 11/18/24 09:11 Pulse 62 11/18/24 09:11 Resp 16 11/18/24 09:11 BP 128/74 11/18/24 09:11 Pulse Ox 96 11/18/24 09:11 Oxygen Delivery Method Room Air 11/18/24 09:11 Care Plan Goal for BP management: <140/90 at Goal BMI result Body Mass Index 44.2 BMI Assessment/Plan discussion: High BMI High, discussed plan: lifestyle, weight reduction, dietary, physical activity, alcohol moderation and other Tobacco/Smoking Status: Tobacco use Status Tobacco use date assessed 06/24/24 11/18/24 09:16 Patient Tobacco Use Status Never used Tobacco 11/18/24 09:16 Tobacco use type Cigarette 11/18/24 09:16 e-Cigarette/Vaping Use Never Used 11/18/24 09:16 PHQ-9: PHQ-9 Score PHQ-9: Total score 0 11/18/24 09:16 Depression Screening Interpretation: Negative Thrive Assessment: Date of Thrive Assessment Date Thrive assessed 06/24/24 11/18/24 09:16 Currently or been in a relationship where the following occur: No concerns reported Const Other: Appearance: Alert. Oriented X3. No acute distress. Head: Normal external exam. Normocephalic. Atraumatic. Eyes: Pupils are equal, round, and reactive to light. Extraocular movements intact. Conjunctiva and sclera normal. Eyelids normal. Ears: External auditory canal normal. Tympanic membranes normal. Throat: Pharynx normal. Uvula midline. Moist mucous membranes. Neck: Normal inspection. Neck supple. Full range of motion. No adenopathy. Thyroid Normal. No meningeal signs. No neck mass noted. Cardiovascular: Normal heart rate and rhythm. Heart sound normal. No murmurs noted. Pulses normal throughout. Respiratory: No respiratory distress. Painless inspiration. Breath sounds normal. No wheezes/rales/rhonchi noted. Chest nontender. No accessory muscle usage noted or decreased air movement noted. Abdomen: Soft and nontender. No distention noted. No organomegaly noted. No visible injury noted. Back: No costovertebral angle tenderness. Full range of motion noted. Skin: Skin warm and dry. Normal skin color. Extremities: No lower extremity edema. Extremities exhibit normal range of motion. Neuro: Oriented X 3. No motor deficit. No sensory deficit. Reflexes normal. Results Reviewed Results Reviewed: - Labs: A1c 5.8, indicating pre-diabetes. - Imaging: Thyroid nodule biopsy negative for malignancy. Coding Level of Care Code Est Pt Level 4 (99863) Est Pt Prev Care 40-64y(30561) Diagnoses Annual physical exam Z00.00 FATMATA (obstructive sleep apnea) G47.33 Anemia D64.9 Thyroid nodule E04.1 Prediabetes R73.03 Hypertension I10 Hyperlipidemia, unspecified hyperlipidemia type E78.5 Hyperlipidemia type: unspecified Morbid obesity with BMI of 40.0-44.9, adult E66.01; Z68.41 Additional Codes ANIL-7 Assessment Billing - ANIL-7 Assessment Tool: ANIL-7 Assessment 73915 ([id number]) PHQ-9 - 07539 - PHQ-9 Billing: Yes ([id number]) Time Spent (min) 50 Assessment & Plan Assessment & Plan (1) Annual physical exam: Code(s): Z00.00 - Encounter for general adult medical examination without abnormal findings Category: Medical (2) FATMATA (obstructive sleep apnea): Comment: Home-based sleep study does confirm the diagnosis of obstructive sleep apnea.. Total sleep time AHI is 10.1 which is consistent with mild obstructive sleep apnea. However he has heavy snoring and also borderline hypoxemia . Code(s): G47.33 - Obstructive sleep apnea (adult) (pediatric) Category: Medical Plan: The patient is advised to continue using the CPAP machine, ensuring proper maintenance and use of distilled water in the humidifier. Follow-up with the sleep specialist is scheduled to address any issues with CPAP usage. (3) Anemia: Code(s): D64.9 - Anemia, unspecified Category: Medical Plan: The patient will have follow-up blood work to monitor anemia status during the next visit. (4) Thyroid nodule: Code(s): E04.1 - Nontoxic single thyroid nodule Category: Medical Plan: The patient is scheduled for a follow-up appointment in March or May to monitor the thyroid nodule for any changes. (5) Prediabetes: Code(s): R73.03 - Prediabetes Category: Medical Plan: The patient is advised to improve dietary habits and consider regular monitoring of blood glucose levels. (6) Hypertension: Code(s): I10 - Essential (primary) hypertension Category: Medical Plan: The patient will continue on lisinopril, as blood pressure is well-controlled at 120/74 mmHg. (7) Hyperlipidemia: Code(s): E78.5 - Hyperlipidemia, unspecified Category: Medical Qualifiers: Hyperlipidemia type: unspecified Qualified Code(s): E78.5 - Hyperlipidemia, unspecified Plan: The patient will continue on atorvastatin, as cholesterol levels are well-managed. (8) Morbid obesity with BMI of 40.0-44.9, adult: Code(s): E66.01 - Morbid (severe) obesity due to excess calories; Z68.41 - Body mass index [BMI] 40.0-44.9, adult Category: Medical Plan: Patient to improve diet and exercise regimen. Condition is chronic and stable will continue to monitor. Plan Plan Patient was informed and verbally consented to the use of an ambient scribe for clinic note documentation during this visit. 1. Sore Throat The patient will undergo a throat culture and swab at [facility] to rule out streptococcal infection and other pathogens. Pending results, the patient may be started on Augmentin for a more robust antibiotic coverage if necessary. 2. Sleep Apnea The patient is advised to continue using the CPAP machine, ensuring proper maintenance and use of distilled water in the humidifier. Follow-up with the sleep specialist is scheduled to address any issues with CPAP usage. 3. Anemia The patient will have follow-up blood work to monitor anemia status during the next visit. 4. Thyroid Nodule The patient is scheduled for a follow-up appointment in March or May to monitor the thyroid nodule for any changes. 5. Pre-Diabetes The patient is advised to improve dietary habits and consider regular monitoring of blood glucose levels. 6. Hypertension The patient will continue on lisinopril, as blood pressure is well-controlled at 120/74 mmHg. 7. Hyperlipidemia The patient will continue on atorvastatin, as cholesterol levels are well-managed. I discussed with the patient the plan to perform a throat culture and swab to rule out infections such as streptococcal pharyngitis. We also reviewed the importance of continuing CPAP therapy for sleep apnea and maintaining proper machine hygiene. The patient was informed about the need for follow-up on the thyroid nodule and anemia, as well as the importance of dietary modifications to manage pre-diabetes. Orders: Orders Strep A Nucleic Acid Today J02.9 - Acute pharyngitis, unspecified SARS-CoV2/FLU/RSV Today J02.9 - Acute pharyngitis, unspecified Hemoglobin A1c Today Z00.00 - Encounter for general adult medical examination without abnormal findings Medications: New amoxicillin-pot clavulanate 875-125 mg 1 tab PO BID 14 tabs 0RF 7 days Refilled fluticasone propion-salmeterol 500-50 mcg/dose (Sabineela Kenny) 1 ea inhalation BID 60 ea 1RF Patient Instructions: - Go to [facility] for throat culture and swab. - Continue using CPAP machine with distilled water. - Follow up on thyroid nodule in March or May. - Monitor blood glucose levels and improve dietary habits.
== END 2024-11-18 09:56 | disposition home or self-care (01) ==
PROVIDERS: PCP Internal Medicine; Visit Provider Physician Assistant Medical
DX: Z00.00 Encounter for general adult medical examination without abnormal findings (principal); G47.33 Obstructive sleep apnea (adult) (pediatric); E66.01 Morbid (severe) obesity due to excess calories; Z68.41 Body mass index [BMI] 40.0-44.9, adult; D64.9 Anemia, unspecified; E04.1 Nontoxic single thyroid nodule; R73.03 Prediabetes; I10 Essential (primary) hypertension; E78.5 Hyperlipidemia, unspecified

== ENCOUNTER 2024-11-18 08:55 | Outpatient (REF) | payer BC, SELFPAY ==
[2024-11-18 12:33] LABS: Resp Syncy Virus RNA Qual PCR NEGATIVE (Negative); SARS COV2 PCR INHOUSE NEGATIVE (Negative)
== END 2024-11-18 08:56 | disposition home or self-care (01) ==
LOC: HO.LAB 08:55
PROVIDERS: PCP Internal Medicine; Visit Provider Physician Assistant Medical
DX: Z00.00 Encounter for general adult medical examination without abnormal findings (principal); G47.33 Obstructive sleep apnea (adult) (pediatric); D64.9 Anemia, unspecified; E04.1 Nontoxic single thyroid nodule; R73.03 Prediabetes; I10 Essential (primary) hypertension; E78.5 Hyperlipidemia, unspecified; E66.01 Morbid (severe) obesity due to excess calories; Z68.41 Body mass index [BMI] 40.0-44.9, adult
CPT/HCPCS: 83036; 87637; 96127

== ENCOUNTER 2024-12-02 15:37 | Outpatient (AMB) | payer BC, SELFPAY ==
[2024-12-02 15:46] VITALS: BP 140/80; PULSE 66; O2SAT 96; BMI 44.6
--- NOTE | 2024-12-02 15:46 | A.OFFVIS_ITS ---
Vital Signs 12/02/24 15:46 Height 5 ft 9 in Weight 302 lb 0.533 oz BMI 44.6 BP 140/80 H Blood Pressure Location Lt brachial Position Sitting Pulse 66 Pulse Source Pulse Oximeter Pulse Oximetry (%) 96 Oxygen Delivery Method Room Air Intake Visit Reasons: Asthma Intake Note: pt is here for follow up and using cpap, he is finding the pressure to high. 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 Please provide accessories for nebulizer machine Do you need a note to return to daycare/school/sports/work: No HPI HPI Asthma: Details: THIS 54 YEARS OLD GENTLEMAN WHO IS MORBIDLY OBESE AND HAS DIAGNOSIS OF OBSTRUCTIVE SLEEP APNEA, BEING TREATED WITH USE OF CPAP, COMES FOLLOW-UP. HE ALSO HAS DIAGNOSIS OF BRONCHIAL ASTHMA WHICH HAS REMAINED WELL CONTROLLED WITH MINIMAL USE OF MEDICATIONS. HE DOES HAVE WIXELA AT HOME BUT USES ONLY IF HIS SYMPTOMS GET ANY WORSE. SIMILARLY HE HAS NOT USE THE RESCUE INHALER MUCH. HE HAS CPAP WITH FULLFACE MASK AND PRESSURE SETTING OF 6-20 CM. HIS USAGE HAS BEEN SOMEWHAT SUBOPTIMAL BUT HE IS NOW TRYING TO USE IT MORE THAN 4 HOURS PER NIGHT. HE ADMITS THAT THE NIGHTS THAT HE USES THE CPAP MORE THAN 4 HOURS NEXT MORNING HE WAKES UP MORE REFRESHED. COMPLAINING OF LOT OF AIR COMING ON HIS FACE AND HE THINKS THAT PRESSURE IS TOO HIGH. I TOLD HIM THAT IT IS PROBABLY AIR LEAK, RATHER THAN PRESSURE BEING TOO HIGH BECAUSE THE PRESSURE IS SELF ADJUSTABLE . HE IS AWARE OF THE FACT THAT HE HAS NOT BEEN USING REGULARLY AND NOT FOR ENOUGH TIME. HE SAY IS THAT HIS A LEARNING CURVE AND LATELY HE IS USING IT ALMOST 4 HOURS EVERY NIGHT AND HE FEELS BETTER. [facility] Medical History Morbid obesity with BMI of 40.0-44.9, adult Hyperlipidemia Annual physical exam Sore throat FATMATA (obstructive sleep apnea) Snoring Obesity (BMI 35.0-39.9 without comorbidity) Prediabetes Anemia Hypertension Thyroid nodule Asthma Surgical History Hx of ultrasound guided needle biopsy History of elbow surgery Hx of repair of rotator cuff Social History Household Members: Spouse Housing: House Do you presently have visiting nurse or other home services: No Alcohol intake: never Patient Tobacco Use Status: Never used Tobacco Tobacco use type: Cigarette e-Cigarette/Vaping Use: Never Used Second Hand Smoke Exposure: No service: No Current occupational status: employed Current occupational exposures/hazards: No Cognitive needs: No Hearing needs: No Vision needs: Yes Review of Systems Const All systems reviewed & are unremarkable except as noted in HPI and below Reports weight gain Eyes Reports no additional complaints ENT Reports other (THYROID NODULE HAD A NEEDLE BIOPSY) Card Denies chest pain, Denies irregular heart rhythm and Denies leg edema Resp Reports as per HPI GI Reports no additional complaints Reports no additional complaints Musc Reports no additional complaints Skin/Breast Reports system reviewed and no additional complaints, except as documented Neuro Reports no additional complaints Psych Reports no additional complaints Endo Reports no additional complaints Aller/Immun Reports no additional complaints Physical Exam Vital Signs: Last Vital Signs Pulse 66 12/02/24 15:46 BP 140/80 H 12/02/24 15:46 Pulse Ox 96 12/02/24 15:46 Oxygen Delivery Method Room Air 12/02/24 15:46 BMI result Body Mass Index 44.6 HE HAS GROSSLY OVERWEIGHT WITH ROUND FACE AND SHORT AND OBESE NECK Const General: comfortable, no acute distress, alert and awake Orientation/consciousness: patient oriented x3 HEENT Head: Yes normal to inspection General nose exam: No nasal polyps present and No nasal discharge present Face and sinus: Yes sinuses nontender Mouth: oropharynx abnormals (OROPHARYNX IS NARROW AND CROWDED, MALLAMPATI SCALE 4) Throat: Yes posterior oropharynx normal Eyes General: appearance normal, both eyes and all related structures Neck Neck: Yes normal visual inspection, Yes no lymphadenopathy, Yes trachea midline and Yes no JVD Thyroid: Thyroid normal Chest Chest palpation & inspection: normal inspection of the chest, normal palpation of entire chest wall and no tenderness Resp Other: PERCUSSION NOTE IS NOT PERCEPTIBLE BECAUSE OF HIS MARKED OBESITY BREATH SOUNDS ARE SLIGHTLY DISTANT ON BOTH SIDES. I DID NOT HEAR ANY WHEEZES OR CREPITATIONS Cardio Palpation: normal PMI Rate: regular rate Rhythm: regular rhythm Heart sounds: no gallops and no murmurs Peripheral pulses: Peripheral pulses 2+ throughout GI Palpation (GI): Soft to palpation, nontender, No hepatosplenomegaly present and no masses Auscultation: normal bowel sounds Back/Spine/Pelvis Thoracic/Lumbar Spine: thoracic and lumbar spine normal to inspection Skin General skin exam: no rashes or lesions noted Neuro General: patient oriented x3 and no focal motor deficits Cranial nerves: Yes CN's II-XII intact bilaterally Extrem General: Yes normal to inspection, Yes no clubbing, cyanosis or edema and Yes no calf tenderness Psych Appearance: grossly normal and well kempt Speech and movement: Normal speech and movement present Results Reviewed Results Reviewed: THE COMPLIANCE REPORT IS PRINTED FOR THE LAST 90 NIGHTS. OUT OF THAT HE HAS USE 52 NIGHTS, 50%, BUT FOR THE INITIAL ABOUT 10 DAYS HE DID NOT HAVE THE CPAP. INITIALLY HIS AVERAGE USAGE WAS LESS THAN 4 HOURS NOW IN THE LAST 10 DAYS IT IT HAS BEEN CLOSE TO 4 TO 5 HOURS. Assessment & Plan Assessment & Plan (1) Asthma: Comment: LONGSTANDING HISTORY OF ALLERGIC BRONCHIAL ASTHMA. WELL CONTROLLED AT THIS TIME . PULMONARY FUNCTION TEST IS NORMAL, BUT HE COULD STILL HAVE INTERMITTENT BRONCHIAL ASTHMA Code(s): J45.909 - Unspecified asthma, uncomplicated Category: Medical Plan: PATIENT DOES HAVE WIXELA 500-50 ON HAND BUT HE WILL USE 1 PUFF B.I.D. ONLY P.R.N. IF HE BECOMES SYMPTOMATIC. ALBUTEROL HFA 2 PUFFS Q 4-6 HOURS ONLY P.R.N. (2) FATMATA (obstructive sleep apnea): Comment: Home-based sleep study does confirm the diagnosis of obstructive sleep apnea.. Total sleep time AHI is 10.1 which is consistent with mild obstructive sleep apnea. However he has heavy snoring and also borderline hypoxemia . So it was decided that he should use CPAP. He has try to use the CPAP and is gradually increasing the time of usage . He does admit that when he uses CPAP for more than 4 hours in a night he feels much better next. Code(s): G47.33 - Obstructive sleep apnea (adult) (pediatric) Category: Medical Plan: We had a long talk and I told him about the compliance, He is going to use more than 4 hours every night (3) Morbid obesity with BMI of 40.0-44.9, adult: Comment: He remains morbidly obese. The importance of weight reduction was discussed. I told him that it is better to join a weight management program He would preferred to see a dietitian Code(s): E66.01 - Morbid (severe) obesity due to excess calories; Z68.41 - Body mass index [BMI] 40.0-44.9, adult Category: Medical Plan: Discussed the principles of diet . Advise that he should walk at least for 2 miles every day. Referral for consultation with dietitian is made Orders: Referrals Test Specialist Nutrition Referral Jeremy Bauer MD E66.01 - Morbid (severe) obesity due to excess calories, G47.33 - Obstructive sleep apnea (adult) (pediatric), Z68.41 - Body mass index [BMI] 40.0-44.9, adult Medications: Changed From fluticasone propion-salmeterol 500-50 mcg/dose (Wixela Inhub) 1 ea inhalation BID 60 ea 1RF To fluticasone propion-salmeterol 500-50 mcg/dose (Wixela Inhub) 1 ea inhalation BID PRN Elizabeth Garza PA-C Coding Level of Care Code Est Pt Level 3 (87818) Diagnoses Asthma J45.909 FATMATA (obstructive sleep apnea) G47.33 Morbid obesity with BMI of 40.0-44.9, adult E66.01; Z68.41
== END 2024-12-02 16:35 | disposition home or self-care (01) ==
LOC: HO.HPS 15:38
PROVIDERS: PCP Internal Medicine; Visit Provider Internal Medicine
DX: J45.909 Unspecified asthma, uncomplicated (principal); G47.33 Obstructive sleep apnea (adult) (pediatric); E66.01 Morbid (severe) obesity due to excess calories; Z68.41 Body mass index [BMI] 40.0-44.9, adult
CPT/HCPCS: 99213

== ENCOUNTER 2025-01-27 13:21 | Outpatient (AMB) | payer BC, SELFPAY ==
--- NOTE | 2025-01-27 13:25 | A.OFFVIS_ITS ---
VS Expanded 01/27/25 13:36 02/07/25 12:32 Height 5 ft 9 in 5 ft 9 in Weight 305 lb 12.498 oz 306 lb BMI 45.2 45.2 Intake Visit Reasons: Morbid (severe) obesity due to excess calories Allergies No Known Allergies Allergy (Verified 12/02/24 16:30) Nutrition Presentation Details: Pt presents for MNT for morbid obesity Food frequency Fruits 0-1 per day Vegetables 2-3 per day Dairy 4 or 5 per day Fish 0-1 a week Eating out 1 to 3 times a week Beverages: Water juice, milk Alcohol: A 0 to once a month Smoking: Denies Physical activity: Daily life activities ZMI-Gqtmmfo-Ij.Ozor Equation Height: 5 ft 9 in Weight: 306 lb Resting Metabolic Rate: 2221.30 Calculated Activity Level: Sedentary Calories Needed to Maintain Weight: 2665.56 Diagnosis Nutrition problem #1: food nutri know defi As related to (etiology) #1: diagnosis As evidenced by (sign/symptom) #1: knowledge deficit of diet [facility] Medical History Morbid obesity with BMI of 40.0-44.9, adult Hyperlipidemia Annual physical exam Sore throat FATMATA (obstructive sleep apnea) Snoring Obesity (BMI 35.0-39.9 without comorbidity) Prediabetes Anemia Hypertension Thyroid nodule Asthma Surgical History Hx of ultrasound guided needle biopsy History of elbow surgery Hx of repair of rotator cuff Social History Household Members: Spouse Housing: House Do you presently have visiting nurse or other home services: No Alcohol intake: never Patient Tobacco Use Status: Never used Tobacco Tobacco use type: Cigarette e-Cigarette/Vaping Use: Never Used Second Hand Smoke Exposure: No service: No Current occupational status: employed Current occupational exposures/hazards: No Cognitive needs: No Hearing needs: No Vision needs: Yes Assessment & Plan Assessment & Plan (1) Morbid obesity with BMI of 40.0-44.9, adult: Code(s): E66.01 - Morbid (severe) obesity due to excess calories; Z68.41 - Body mass index [BMI] 40.0-44.9, adult Category: Medical Plan: current wt: 139kg (12/2024 ) est kcal needs as per MSJ: 2700 est protein needs as per 1 g/kg BW: 140 est fluid needs as per 30 ml/kg BW: 4200 Recommended fiber > 12 g /day and gradually increase up to 25-28 g /day or as tolerated Nutrition topics discussed : Reviewed (R), Pt verbalized understanding (V) , not applicable (N/A) R, : Healthy Plate Method Concept: R, : Carbohydrates: food sources of carbohydrates, relationship of carbohydrates to blood glucose, fatty liver GI health. Recommended total amount of carbohydrates per meals and snack. Differences between simple carbohydrates and complex carbohydrates R, : Lean protein foods including vegan , vegetarian sources of protein. Benefits of protein (including but not limited to healing, nutritional value , benefits in weight loss, glucose control R, V, N/A: Fats : Source of fats, benefits of fats. Difference between saturated and unsaturated fats. Saturated fats and its contribution to inflammation R, V, N/A: Fiber: food sources and role of fiber in the diet (including but not limited to its role as a prebiotic, benefits in constipation, role in IBS , role in glucose control and cholesterol level) R, V, N/A: Hydration: role of hydration and prevention of dehydration or over hydration. Foods and water content. R, V, N/A: Vitamins and Minerals in foods and supplements R, V, N/A: Interpreting food labels, including serving size, macronutrients, vitamins, minerals, allergens, ingredient list , % daily value Patient Instructions: Work on reducing sugars and total carbohydrate intake to less than 90 g per meal following healthy plate method, 3 meals per day See meal plan ideas Practice mindful eating Keep hydrated by choosing water, low-calorie beverages and low sugar beverages Coding Level of Care Code Nutr Indiv Intake (13979) Diagnoses Morbid obesity with BMI of 40.0-44.9, adult E66.01; Z68.41 Time Spent (min) 30
[2025-01-27 13:36] VITALS: BMI 45.2
[2025-02-07 12:32] VITALS: BMI 45.2
== END 2025-01-27 14:15 | disposition home or self-care (01) ==
LOC: HO.ENCR 13:21
PROVIDERS: PCP Internal Medicine; Visit Provider Dietitian, Registered
DX: E66.01 Morbid (severe) obesity due to excess calories (principal); Z68.41 Body mass index [BMI] 40.0-44.9, adult

== ENCOUNTER → 2025-01-27 13:21 | Outpatient (BNVA) | payer BC, SELFPAY | PROVIDERS: PCP Internal Medicine; Visit Provider Dietitian, Registered | DX: E66.01 Morbid (severe) obesity due to excess calories (principal); Z68.41 Body mass index [BMI] 40.0-44.9, adult; Z71.3 Dietary counseling and surveillance | CPT/HCPCS: 97802 ==